=== PATIENT | male | born 1960 | race African-American/Black ===

== ENCOUNTER 2017-05-11 12:45 | Emergency (ER) | payer BC ==
[~2017-05-11] VITALS: Ht 177.8 cm; Wt 95.3 kg
[2017-05-11] MEDS ORDERED: METOCLOPRAMIDE HCL 10 MG/2 ML VIAL. IV ONE (13:45)
[2017-05-11] MEDS ORDERED: LABETALOL 20 MG/4 ML DISP.SYRIN. IVP ONE (13:45)
[2017-05-11] MEDS ORDERED: IV NORMAL SALINE 500ML BAG 500 ML IV ONE (13:45)
[2017-05-11] MEDS ORDERED: diphenhydrAMINE 50 MG/ML VIAL IVP ONE (13:45)
--- NOTE | 2017-05-11 14:32 | PHYS DOC ---
Past Medical History Past Medical History: Diabetes-Type I, Hypertension, Other Additional Past Medical Histor: leukemia Alcohol Use: None Drug Use: None Adult General Chief Complaint Chief Complaint: headache HPI HPI 56-year-old male presenting to the emergency department with a headache. He describes his headache as a pressure sensation in the front of his head similar to previous sinus headaches he has had before. He reports that the pain sometimes makes him feel lightheaded. He denies orthostasis or lightheadedness when he stands up. He does intermittently feel lightheaded. He denies vertigo or the room spinning. He primarily reports being here because he wanted to check his blood pressure to make sure his blood pressure wasn't too elevated. Initially his blood pressure was in the 170s which came down prior to the labetalol that was ordered for him. He has Flonase at home that he uses intermittently for his sinus disease. He denies his headache being sudden in onset or different from previous headaches. He denies fevers chills or neck stiffness. He denies vision changes. Review of systems is negative for chest pain shortness of breath abdominal pain nausea vomiting. All other review of systems is negative unless otherwise noted in history of present illness. ED course: 56-year-old male presenting to the emergency department today with headache. Afebrile with a normal heart rate. Pertinent physical exam findings showed a normal neurologic exam. Mild pain to palpation of the sinuses. Heart and lungs were normal. Abdomen is soft and nontender. I offered the patient medication for his headache. He received Reglan and Benadryl and fluids. On reexamination he was feeling better and his blood pressure did come down. I recommended he follow up with his primary care physician for blood pressure management. He also received Flonase in the emergency department for his sinuses. The patient was then discharged home in stable condition to follow up with their primary care physician over the next 2-3 days. They were to return if their symptoms worsened or if they were concerned for any reason. Face-to- face discharge instructions and return precautions were given. Patient's questions were answered to their satisfaction. Patient is comfortable plan. Review of Systems Review of Systems SEE ABOVE. Current Medications Current Medications Current Medications Medications (Trade) Dose Ordered Sig/Fredis Start Time Stop Time Status Last Admin Dose Admin Diphenhydramine HCl (Benadryl) 25 mg 1X ONCE 05/11/17 13:45 05/11/17 13:46 DC 05/11/17 13:58 25 MG Fluticasone Propionate (Flonase) 2 spray 1X ONCE 05/11/17 16:00 05/11/17 16:01 05/11/17 13:57 2 SPRAY Labetalol HCl (Normodyne) 10 mg 1X ONCE 05/11/17 13:45 05/11/17 13:46 DC Metoclopramide HCl (Reglan) 10 mg 1X ONCE 05/11/17 13:45 05/11/17 13:46 DC 05/11/17 13:56 10 MG Sodium Chloride 500 ml @ 500 mls/hr 1X ONCE 05/11/17 13:45 05/11/17 14:44 DC 05/11/17 13:55 500 MLS/HR Allergies Allergies Allergies Coded Allergies Type Severity Reaction Last Updated Verified No Known Drug Allergies 05/11/17 No Physical Exam Physical Exam see above: Constitutional: Well developed, well nourished, no acute distress, non-toxic appearance. [] HENT: Normocephalic, atraumatic, bilateral external ears normal, oropharynx moist, no oral exudates, nose normal. [] Eyes: PERRLA, EOMI, conjunctiva normal, no discharge. [] Neck: Normal range of motion, no tenderness, supple, no stridor. [] Cardiovascular:Heart rate regular rhythm, no murmur [] Lungs & Thorax: Bilateral breath sounds clear to auscultation [] Abdomen: Bowel sounds normal, soft, no tenderness, no masses, no pulsatile masses. [] Skin: Warm, dry, no erythema, no rash. [] Back: No tenderness, no CVA tenderness. [] Extremities: No tenderness, no cyanosis, no clubbing, ROM intact, no edema. [] Neurologic: Alert and oriented X 3, normal motor function, normal sensory function, no focal deficits noted. [] Psychologic: Affect normal, judgement normal, mood normal. [] Current Patient Data Vital Signs Vital Signs Date Time Temp Pulse Resp B/P (MAP) Pulse Ox O2 Delivery O2 Flow Rate FiO2 05/11/17 15:00 74 16 159/87 (111) 97 Room Air 05/11/17 13:00 98.1 98.1 EKG EKG [] Radiology/Procedures Radiology/Procedures [] Course & Med Decision Making Course & Med Decision Making Pertinent Labs and Imaging studies reviewed. (See chart for details) [] Dragon Disclaimer Dragon Disclaimer This electronic medical record was generated, in whole or in part, using a voice recognition dictation system. Departure Departure Impression: Primary Impression: Sinus headache Additional Impression: High blood pressure Disposition: HOME, SELF-CARE Condition: STABLE Referrals: SAMSON JOY MD (PCP) Patient Instructions: Dizziness, General Headache Without Cause, Managing Your High Blood Pressure Additional Instructions: Thank you for allowing us to participate in your care today. Followup with your primary care physician in 3 days if your symptoms do not improve. Call your Primary Doctor tomorrow and inform them of your visit today. If you do not have a primary care provider you can ask for a list of our primary care providers. Return to the emergency department you have any new or concerning findings. This should be evaluated by the primary care physician and any necessary consulting services for continued management within a few days after discharge. Return to emergency room if you have any new or concerning symptoms including but not limited to fever, chills, nausea, vomiting, intractable pain, any new rashes, chest pain, shortness of air, uncontrolled bleeding, difficulty breathing, and/or vision loss. You may have been prescribed medication that can change in your level of thinking and ability to operate machinery. These medications include hydrocodone and Ativan. Also, Benadryl has been known to do this as well. Be sure to check with your pharmacist and ask if the medications you've prescribed can affect your level of consciousness. I recommend not operating heavy machinery or driving while on medication such as these. Problem Qualifiers ZACK RAMSEY MD May 11, 2017 14:32
--- NOTE | 2017-05-11 15:36 | EKG ---
[facility] [address] [place] [address] Test Date: 2017-05-11 Test Time: 13:07:00 Pat Name: MARIXA DE LA FUENTE Department: Room: Gender: M Button Reclaimer: : 1960 Requested By: ZACK RAMSEY Order Number: [id number] Reading MD: Measurements Intervals [place] Rate: 86 P: -119 FL: 146 QRS: -4 QRSD: 102 T: 114 QT: 366 QTc: 441 Interpretive Statements SINUS RHYTHM LEFTWARD AXIS T ABNORMALITY IN LATERAL LEADS RI6.01 Unconfirmed report No previous ECG available for comparison
[2017-05-11] MEDS ORDERED: FLUTICASONE 50MCG/NASAL SPRAY 16GM BOTTLE. NS ONE (16:00)
[2017-05-11 16:10] VITALS: BP 138/74
== END 2017-05-11 16:12 | disposition home or self-care (01) ==
LOC: ER 12:45
DX: R51 Headache (principal); R42 Dizziness and giddiness; I10 Essential (primary) hypertension; E10.9 Type 1 diabetes mellitus without complications
CPT/HCPCS: 82962; 93005; 96361; 96374; 96375; 99284; J1200; J2765; J7040

== ENCOUNTER 2017-05-14 16:26 | Emergency (ER) | payer BC ==
[~2017-05-14] VITALS: Ht 177.8 cm; Wt 95.3 kg
[2017-05-14 18:00] LABS: NEG OBC FOB NEG; POS OBC FOB POS
[2017-05-14] MEDS ORDERED: HYDROcodone/APAP 5/325MG 1 TAB TABLET PO ONE (18:00)
[2017-05-14 18:34] LABS: BASO % 1 % (0-3); EOS % 8 % (0-3); HEMATOCRIT 39.6 % (39.0-53.0); HEMOGLOBIN 13.7 g/dL (13.0-17.5); LYMPH # 1.8 x10^3/uL (1.0-4.8); LYMPH % 32 % (24-48); MEAN CORPUSCULAR HEMOGLOBIN 29 pg (25-35); MEAN CORPUSCULAR HGB CONC 35 g/dL (31-37); MEAN CORPUSCULAR VOLUME 83 fL (79-100); MONO % 9 % (0-9); NEUT % 49 % (31-73); PLATELET COUNT 141 x10^3/uL (140-400); RED BLOOD COUNT 4.78 x10^6/uL (4.30-5.70); RED CELL DISTRIBUTION WIDTH 15.2 % (11.5-14.5); WHITE BLOOD COUNT 5.4 x10^3/uL (4.0-11.0)
[2017-05-14 18:50] LABS: CALCIUM 8.9 mg/dL (8.5-10.1); CREATININE 1.1 mg/dL (0.7-1.3); GFR 83.2; POTASSIUM 3.6 mmol/L (3.5-5.1)
[2017-05-14] MEDS ORDERED: AMOX1TAB61 PO (19:19)
[2017-05-14] MEDS ORDERED: HYDR-971 PO (19:19)
--- NOTE | 2017-05-14 19:19 | PHYS DOC ---
Past Medical History Past Medical History: Diabetes-Type I, Hypertension, Other Additional Past Medical Histor: leukemia Past Surgical History: No Surgical History Alcohol Use: None Drug Use: None Adult General Chief Complaint Chief Complaint: HEADACHE HPI HPI Patient is a 56 year old male who presents with headache & rectal bleeding. The patient states he has had headache for 4 days, feels like sinus congestion to frontal region, aching/throbbing/congested. He states not sudden in onset & not the worst headache of his life, although he has headaches infrequently. He denies fever, vision changes, neck stiffness, extremity numbness/weakness. Has been using nasal spray without relief of symptoms. Also reports today he had bowel movement & saw blood on the toilet paper when wiping, no javier hematochezia or melena. Denies abdominal pain, vomiting, hematemesis, hematuria. History of similar symptoms in remote past with no significant bleeding at that time. He does not take blood thinners. Review of Systems Review of Systems Constitutional: Denies fever or chills Eyes: Denies change in visual acuity HENT: Reports nasal congestion, denies sore throat Respiratory: Denies cough or shortness of breath Cardiovascular: Denies chest pain or edema GI: Denies abdominal pain, nausea, vomiting, or diarrhea. Reports rectal bleeding. : Denies dysuria or hematuria Musculoskeletal: Denies back pain or joint pain Integument: Denies rash or skin lesions Neurologic: Reports headache, denies focal weakness or sensory changes Current Medications Current Medications Current Medications Medications (Trade) Dose Ordered Sig/Fredis Start Time Stop Time Status Last Admin Dose Admin Acetaminophen/ Hydrocodone Bitart (Lortab 5/325) 2 tab 1X ONCE 05/14/17 18:00 05/14/17 18:01 DC 05/14/17 18:27 2 TAB Allergies Allergies Allergies Coded Allergies Type Severity Reaction Last Updated Verified No Known Drug Allergies 05/11/17 No Physical Exam Physical Exam Constitutional: Well developed, well nourished, no acute distress, non-toxic appearance. HENT: Normocephalic, atraumatic, bilateral external ears normal, oropharynx moist, nose normal. bifrontal sinus tenderness. Eyes: PERRLA, EOMI, conjunctiva normal, no discharge. Neck: supple, no stridor. no meningismus. Cardiovascular: RRR, no murmurs, no edema. Lungs & Thorax: LCTAB, no wheezing, no respiratory distress. Abdomen: soft, nontender, nondistended. Rectal: exam with RN February present. normal external exam without hemorrhoid or fissure, no tenderness on exam, no masses, no gross blood, hemoccult card sent to lab. Skin: Warm, dry, no erythema, no rash. Back: No CVA tenderness. Extremities: No tenderness, no edema. Neurologic: Alert and oriented X 3, CN2-12 grossly intact, symmetric strength/ sensation to UE & LE, no focal deficits noted. Psychologic: Affect normal, judgement normal, mood normal. Current Patient Data Vital Signs Vital Signs Date Time Temp Pulse Resp B/P (MAP) Pulse Ox O2 Delivery O2 Flow Rate FiO2 05/14/17 19:26 69 20 186/98 (127) 94 Room Air 05/14/17 16:56 99.2 99.2 Lab Values Laboratory Tests Test 05/14/17 17:39 05/14/17 18:20 Stool Occult Blood Negative (NEG) White Blood Count 5.4 x10^3/uL (4.0-11.0) Red Blood Count 4.78 x10^6/uL (4.30-5.70) Hemoglobin 13.7 g/dL (13.0-17.5) Hematocrit 39.6 % (39.0-53.0) Mean Corpuscular Volume 83 fL (79-100) Mean Corpuscular Hemoglobin 29 pg (25-35) Mean Corpuscular Hemoglobin Concent 35 g/dL (31-37) Red Cell Distribution Width 15.2 % (11.5-14.5) H Platelet Count 141 x10^3/uL (140-400) Neutrophils (%) (Auto) 49 % (31-73) Lymphocytes (%) (Auto) 32 % (24-48) Monocytes (%) (Auto) 9 % (0-9) Eosinophils (%) (Auto) 8 % (0-3) H Basophils (%) (Auto) 1 % (0-3) Neutrophils # (Auto) 2.7 x10^3uL (1.8-7.7) Lymphocytes # (Auto) 1.8 x10^3/uL (1.0-4.8) Monocytes # (Auto) 0.5 x10^3/uL (0.0-1.1) Eosinophils # (Auto) 0.5 x10^3/uL (0.0-0.7) Basophils # (Auto) 0.0 x10^3/uL (0.0-0.2) Sodium Level 143 mmol/L (136-145) Potassium Level 3.6 mmol/L (3.5-5.1) Chloride Level 106 mmol/L (98-107) Carbon Dioxide Level 29 mmol/L (21-32) Anion Gap 8 (6-14) Blood Urea Nitrogen 17 mg/dL (8-26) Creatinine 1.1 mg/dL (0.7-1.3) Estimated GFR (Cockcroft-Gault) 83.2 Glucose Level 196 mg/dL (70-99) H Calcium Level 8.9 mg/dL (8.5-10.1) Laboratory Tests 05/14/17 18:20 Laboratory Tests 05/14/17 18:20 EKG EKG [] Radiology/Procedures Radiology/Procedures Radiology downtime, preliminary read by Dr. Michelle shows no acute abnormality. [] Course & Med Decision Making Course & Med Decision Making Pertinent Labs and Imaging studies reviewed. (See chart for details) The patient presents with headache & rectal bleeding. Well appearing, afebrile , normal neuro exam. Given age & duration of headache obtained head CT which was unremarkable. Gave pain meds in the ED. No rectal bleeding seen here, report indicates very minimal blood at home, could be small internal hemorrhoid or fissure. Hemodynamically stable. In absence of abdominal pain, hematemesis , ongoing bleeding, patient is safe for discharge. Discussed likely viral etiology of sinus symptoms. However, I did provide prescriptoin for augmentin to be filled as needed if not improving in 2-3 days, particularly if having fever. Also gave norco & encouraged continued symptomatic treatment with flonase, consider neti pot. Follow up with primary care or GI if rectal bleeding is persistent in 2-3 days. Patient aware of elevated blood glucose & blood pressure, he has diabetes & hypertension & will monitor/follow up. Come back for severe/sudden onset headache, focal neuro deficit, uncontrolled vomiting, severe abdominal pain, hematemesis, increased bleeding, any otherwise worsening condition. Discharged home in stable condition. [] Dragon Disclaimer Dragon Disclaimer This electronic medical record was generated, in whole or in part, using a voice recognition dictation system. Departure Departure Impression: Primary Impression: Sinusitis Additional Impressions: Rectal bleeding Essential hypertension Hyperglycemia Disposition: 01 HOME, SELF-CARE Condition: STABLE Referrals: SAMSON JOY MD (PCP) Patient Instructions: Sinus Headache, [id number] Additional Instructions: You seen in the emergency department today for headache. Tests did not show serious cause of symptoms. Also there was no blood on rectal exam here. You likely do have a sinus infection. This is almost always caused by a virus. We do not encourage treatment with antibiotics. However due to duration of her symptoms and low-grade fever here, you may wait 2-3 days and if still having symptoms it is okay to fill the prescription for antibiotics. In the meantime continue use of nasal spray, consider obtaining neti pot wash. I'll up with Dr. Joy in the primary care clinic in about 2-3 days. Your blood pressure and blood glucose were elevated here today and should be rechecked. Return to the emergency department for sudden onset of severe headache, worst headache of your life, uncontrolled vomiting, high fever, numbness or weakness in arms or legs, any otherwise worsening condition. Scripts Hydrocodone/Apap 5-325 (NORCO 5-325 TABLET) 1 Each Tablet 1 TAB PO PRN Q6HRS Y for PAIN, #10 TAB 0 Refills Prov: MICHAEL CUELLAR MD 05/14/17 Amoxicillin/Potassium Clav (AUGMENTIN 875-125 TABLET) 1 Each Tablet 1 TAB PO BID, #14 TAB Prov: MICHAEL CUELLAR MD 05/14/17 Problem Qualifiers MICHAEL CUELLAR MD May 14, 2017 19:19
[2017-05-14 19:26] VITALS: BP 186/98
--- NOTE | 2017-05-14 22:28 | RAD ---
CT head without intravenous contrast History: Headache and dizziness, hypertension today. Comparison: None. Technique: Axial images are obtained of the head from the skull base through the vertex without IV contrast. Exposure: One or more of the following individualized dose reduction techniques were utilized for this examination: 1. Automated exposure control 2. Adjustment of the mA and/or kV according to patient size 3. Use of iterative reconstruction technique Findings: The ventricles are appropriate in size, shape, and location for the patient's age. No obvious intracranial mass, mass-effect, midline shift, hemorrhage or obvious acute infarction is identified. Basilar cisterns are patent. Bone windows demonstrate no acute calvarial abnormality. The visualized paranasal sinuses appear clear. Impression: 1. No acute intracranial process. Electronically signed by: Yusuf Michelle MD (05/14/2017 10:25 PM)
== END 2017-05-14 19:28 | disposition home or self-care (01) ==
LOC: ER 16:26
DX: J32.9 Chronic sinusitis, unspecified (principal); K62.5 Hemorrhage of anus and rectum; I10 Essential (primary) hypertension; E10.65 Type 1 diabetes mellitus with hyperglycemia
CPT/HCPCS: 36415; 70450; 80048; 82274; 85027; 99285-25

== ENCOUNTER 2017-05-16 08:21 | Emergency (ER) | payer BC ==
[~2017-05-16] VITALS: Ht 177.8 cm; Wt 95.3 kg
[~2017-05-16 08:21] MED LIST: AMOX1TAB61 PO; HYDR-971 PO
--- NOTE | 2017-05-16 08:22 | PHYS DOC ---
Past Medical History Past Medical History: Diabetes-Type I, Hypertension, Other Additional Past Medical Histor: leukemia Past Surgical History: No Surgical History Alcohol Use: None Drug Use: None Adult General Chief Complaint Chief Complaint: [facility] HPI Patient is a 56 year old -[place] male who presents with complains of dizziness and shortness of breath and chills last night in addition to his sinus congestion. He states that his shortness of breath sensation and chills resolved last night but had trouble sleeping all night secondary to his headache and some nausea. He states this morning he felt very weak like his legs were going to give out he was still able to walk to the car drive himself here and get to the emergency department by himself. He denies any productive cough he denies any chest pain. He did start his antibiotics last night that he was given for his sinus infection. Review of Systems Review of Systems Constitutional: Denies fever or chills [] Eyes: Denies change in visual acuity, redness, or eye pain [] HENT: Denies nasal congestion or sore throat [] Respiratory: Denies cough or shortness of breath [] Cardiovascular: No additional information not addressed in HPI [] GI: Denies abdominal pain, nausea, vomiting, bloody stools or diarrhea [] : Denies dysuria or hematuria [] Musculoskeletal: Denies back pain or joint pain [] Integument: Denies rash or skin lesions [] Neurologic: Denies headache, focal weakness or sensory changes [] Endocrine: Denies polyuria or polydipsia [] Allergies Allergies Allergies Coded Allergies Type Severity Reaction Last Updated Verified No Known Drug Allergies 05/11/17 No Physical Exam Physical Exam Constitutional: Well developed, well nourished, no acute distress, non-toxic appearance. [] HENT: Normocephalic, atraumatic, bilateral external ears normal, oropharynx moist, no oral exudates, nose normal. [] Eyes: PERRLA, EOMI, conjunctiva normal, no discharge. [] Neck: Normal range of motion, no tenderness, supple, no stridor. [] Cardiovascular:Heart rate regular rhythm, no murmur [] Lungs & Thorax: Bilateral breath sounds clear to auscultation [] Abdomen: Bowel sounds normal, soft, no tenderness, no masses, no pulsatile masses. [] Skin: Warm, dry, no erythema, no rash. [] Back: No tenderness, no CVA tenderness. [] Extremities: No tenderness, no cyanosis, no clubbing, ROM intact, no edema. [] Neurologic: Alert and oriented X 3, normal motor function, normal sensory function, no focal deficits noted. [] Psychologic: Affect normal, judgement normal, mood normal. [] Current Patient Data Vital Signs Vital Signs Date Time Temp Pulse Resp B/P (MAP) Pulse Ox O2 Delivery O2 Flow Rate FiO2 05/16/17 12:26 72 20 168/86 (113) 95 Room Air 05/16/17 08:36 98.2 98.2 Lab Values Laboratory Tests Test 05/16/17 08:45 05/16/17 09:40 05/16/17 11:40 White Blood Count 5.2 x10^3/uL (4.0-11.0) Red Blood Count 4.84 x10^6/uL (4.30-5.70) Hemoglobin 13.9 g/dL (13.0-17.5) Hematocrit 40.2 % (39.0-53.0) Mean Corpuscular Volume 83 fL (79-100) Mean Corpuscular Hemoglobin 29 pg (25-35) Mean Corpuscular Hemoglobin Concent 35 g/dL (31-37) Red Cell Distribution Width 15.0 % (11.5-14.5) H Platelet Count 139 x10^3/uL (140-400) L Neutrophils (%) (Auto) 56 % (31-73) Lymphocytes (%) (Auto) 27 % (24-48) Monocytes (%) (Auto) 10 % (0-9) H Eosinophils (%) (Auto) 6 % (0-3) H Basophils (%) (Auto) 1 % (0-3) Neutrophils # (Auto) 2.9 x10^3uL (1.8-7.7) Lymphocytes # (Auto) 1.4 x10^3/uL (1.0-4.8) Monocytes # (Auto) 0.5 x10^3/uL (0.0-1.1) Eosinophils # (Auto) 0.3 x10^3/uL (0.0-0.7) Basophils # (Auto) 0.1 x10^3/uL (0.0-0.2) Sodium Level 141 mmol/L (136-145) Potassium Level 3.4 mmol/L (3.5-5.1) L Chloride Level 106 mmol/L (98-107) Carbon Dioxide Level 28 mmol/L (21-32) Anion Gap 7 (6-14) Blood Urea Nitrogen 17 mg/dL (8-26) Creatinine 1.1 mg/dL (0.7-1.3) Estimated GFR (Cockcroft-Gault) 83.2 Glucose Level 137 mg/dL (70-99) H Calcium Level 9.0 mg/dL (8.5-10.1) Magnesium Level 2.0 mg/dL (1.8-2.4) Total Bilirubin 0.5 mg/dL (0.2-1.0) Direct Bilirubin 0.2 mg/dL (0.0-0.2) Aspartate Amino Transferase (AST) 17 U/L (15-37) Alanine Aminotransferase (ALT) 32 U/L (16-63) Alkaline Phosphatase 114 U/L (46-116) Creatine Kinase 147 U/L (39-308) 135 U/L (39-308) Creatine Kinase MB (Mass) 1.4 ng/mL (0.0-3.6) 1.3 ng/mL (0.0-3.6) Creatine Kinase MB Relative Index 1.0 % (0-4) 1.0 % (0-4) Troponin I Quantitative 0.044 ng/mL (0.000-0.055) 0.043 ng/mL (0.000-0.055) ZZ-Kze-X-Type Natriuretic Peptide 109 pg/mL (0-124) Total Protein 7.2 g/dL (6.4-8.2) Albumin 3.8 g/dL (3.4-5.0) Lipase 70 U/L (73-393) L Thyroid Stimulating Hormone (TSH) 1.255 uIU/mL (0.358-3.74) Urine Collection Type Unknown Urine Color Yellow Urine Clarity Clear Urine pH 7.0 Urine Specific [place] 1.015 Urine Protein 30 mg/dL (NEG-TRACE) Urine Glucose (UA) Negative mg/dL (NEG) Urine Ketones (Stick) Negative mg/dL (NEG) Urine Blood Negative (NEG) Urine Nitrite Negative (NEG) Urine Bilirubin Negative (NEG) Urine Urobilinogen Dipstick 1.0 mg/dL (0.2 mg/dL) Urine Leukocyte Esterase Negative (NEG) Urine RBC 1-2 /HPF (0-2) Urine WBC 5-10 /HPF (0-4) Urine Squamous Epithelial Cells Few /LPF Urine Bacteria Few /HPF (0-FEW) Urine Mucus Slight /LPF Laboratory Tests 05/16/17 08:45 Laboratory Tests 05/16/17 08:45 EKG EKG EKG shows sinus rhythm with a rate of [address] elevations appreciated, T-wave inversions noted in V5 and V6 in 2 aVL, left axis deviation , QTC 460 ms, as interpreted by me. Radiology/Procedures Radiology/Procedures [facility] [address] [place], [place] [id number] IMAGING REPORT Signed PATIENT: MARIXA DE LA FUENTE ACCOUNT: [id number] : 1960 LOCATION: ER AGE: 56 SEX: M EXAM STATUS: REG ER ORD. PHYSICIAN: OSNA BOSWELL MD REASON: soa,dizziness PROCEDURE: PORTABLE CHEST 1V Portable AP upright view CXR: Clinical indications: Sinus pressure for 5 days. Shortness of air. Dizziness.. Comparison: None available. Findings: No acute lung infiltrate or pleural effusion or pulmonary edema or lung mass or pneumothorax is seen. The heart size, pulmonary vasculature, mediastinum and both ken are unremarkable. Impression: No acute radiographic abnormality is seen. DICTATED and SIGNED BY: JAYDE BURGER MD DATE: 05/16/17 09 CC: SONA BOSWELL MD; SAMSON JOY MD ~ Impressions: Sinus congestion Generalized weakness Course & Med Decision Making Course & Med Decision Making Pertinent Labs and Imaging studies reviewed. (See chart for details) His labs, EKG, chest x-ray did not show any acute abnormality's. I repeated his troponin since he is complaining of weakness and this was normal. He has Augmentin and nasals sprays that he is currently on from yesterday's ER visit. Do not see any abnormalities in his blood work, labs, EKG, vitals. He has a follow-up appointment at 2:00 today with his primary care physician. Return precautions given. He is agreeable to the plan and being discharged in stable condition. Dragon Disclaimer Dragon Disclaimer This electronic medical record was generated, in whole or in part, using a voice recognition dictation system. Departure Departure Impression: Primary Impression: Weakness Disposition: 01 HOME, SELF-CARE Condition: STABLE Referrals: SAMSON JOY MD (PCP) Patient Instructions: Weakness Additional Instructions: You were seen today for your headache, generalized weakness, your labs, EKG chest x-ray did not show any acute abnormality's. Your being discharged home. Please follow-up with your primary care physician today. Return ER for severe pain severe weakness, or other concerns. SONA BOSWELL MD May 16, 2017 08:22
[2017-05-16 09:02] LABS: BASO # 0.1 x10^3/uL (0.0-0.2); BASO % 1 % (0-3); EOS % 6 % (0-3); HEMATOCRIT 40.2 % (39.0-53.0); HEMOGLOBIN 13.9 g/dL (13.0-17.5); LYMPH # 1.4 x10^3/uL (1.0-4.8); LYMPH % 27 % (24-48); MEAN CORPUSCULAR HEMOGLOBIN 29 pg (25-35); MEAN CORPUSCULAR HGB CONC 35 g/dL (31-37); MEAN CORPUSCULAR VOLUME 83 fL (79-100); MONO % 10 % (0-9); NEUT % 56 % (31-73); PLATELET COUNT 139 x10^3/uL (140-400); RED BLOOD COUNT 4.84 x10^6/uL (4.30-5.70); WHITE BLOOD COUNT 5.2 x10^3/uL (4.0-11.0)
--- NOTE | 2017-05-16 09:05 | RAD ---
Portable AP upright view CXR: Clinical indications: Sinus pressure for 5 days. Shortness of air. Dizziness.. Comparison: None available. Findings: No acute lung infiltrate or pleural effusion or pulmonary edema or lung mass or pneumothorax is seen. The heart size, pulmonary vasculature, mediastinum and both ken are unremarkable. Impression: No acute radiographic abnormality is seen.
[2017-05-16 09:12] LABS: CREATININE 1.1 mg/dL (0.7-1.3); GFR 83.2; POTASSIUM 3.4 mmol/L (3.5-5.1)
[2017-05-16 09:20] LABS: ALBUMIN 3.8 g/dL (3.4-5.0); DIRECT BILIRUBIN 0.2 mg/dL (0.0-0.2); TOTAL BILIRUBIN 0.5 mg/dL (0.2-1.0); TOTAL PROTEIN 7.2 g/dL (6.4-8.2)
[2017-05-16 09:25] LABS: CKMB MASS 1.4 ng/mL (0.0-3.6)
[2017-05-16 09:54] LABS: BILIRUBIN,URINE NEGATIVE (NEG); GLUCOSE,URINE NEGATIVE (NEG); NITRITE,URINE NEGATIVE (NEG); PROTEIN,URINE 30 mg/dL (NEG-TRACE)
[2017-05-16 10:02] LABS: SQUAMOUS EPITHELIAL CELL,UR FEW /LPF
[2017-05-16 10:03] LABS: BACTERIA,URINE FEW /HPF (0-FEW)
--- NOTE | 2017-05-16 11:04 | ACF ---
Admission Forms Criteria HYPERTENSION Clinical Indications for Admission to Inpatient Care ( Place "X" for any and all applicable criteria): Admission is indicated for 1 or more of the following(1)(2)(3)(4)(5)(6)(7)(8)(9) (10): [ ]I. Hypertensive emergency, with evidence of acute and progressing target organ disease as indicated by 1 or more of the following: [ ]a) Hypertensive encephalopathy (eg, confusion, altered mental status) [ ]b) Cerebral infarction [ ]c) Intracranial hemorrhage [ ]d) Myocardial ischemia or infarction [ ]e) Heart failure (eg. Pulmonary edema) [ ]f) Aortic dissection [ ]g) Increased creatinine (new) with reduction of more than 50% in estimated glomerular filtration rate from baseline [ ]h) Seizure [ ]i) Papilledema [ ]j) Retinal hemorrhage [ ]k) Microangiopathic hemolytic anemia [ ]l) Other significant finding secondary to hypertension [ ]II. Adrenergic or sympathomimetic crisis (eg, severe hypertension due to pheochromocytoma crisis, cocaine or amphetamine intoxication, or clonidine withdrawal) [X]III. Severe hypertension (SBP greater than 180 mmHg or DBP greater than 110 mmHg or greater than the 95th percentile for age, gender, and height in pediatric patients) that cannot be controlled (eg, to SBP less than 160 mmHg and DBP less than 100 mmHg in adults) by treatment with oral medication in emergency department or observation care Extended stay beyond goal length of stay may be needed for(11)(12)(13): [ ]a) Persistent hypertensive encephalopathy [ ]b) Continuation of pulmonary edema [ ]c) Recurring or persistent severe hypertension [ ]d) Target organ damage (eg, angina, stroke, aortic dissection) The original [employer] content created by [employer] has been revised. The portions of the content which have been revised are identified through the use of italic text, and [employer] has neither reviewed nor approved the modified material. All other unmodified content is copyright [employer]. Please see references footnoted in the original [employer] edition 2014 Admission Criteria Met?: Yes MELI LEIGH May 16, 2017 11:04
[2017-05-16 12:20] LABS: CKMB MASS 1.3 ng/mL (0.0-3.6)
[2017-05-16 12:26] VITALS: BP 168/86
--- NOTE | 2017-05-16 12:49 | EKG ---
[facility] [address] [place] [address] Test Date: 2017-05-16 Test Time: 08:28:53 Pat Name: MARIXA DE LA FUENTE Department: Room: Gender: M [employer]: : 1960 Requested By: SONA BOSWELL Order Number: [id number] Reading MD: Tiff Mon Measurements Intervals [place] Rate: 74 P: -4 [place]: 192 QRS: -7 QRSD: 104 T: 69 QT: 374 QTc: 416 Interpretive Statements SINUS RHYTHM LEFTWARD AXIS Electronically Signed On 05-17-2017 14:16:20 CDT by Tiff Mon
== END 2017-05-16 12:33 | disposition home or self-care (01) ==
LOC: ER 08:21
DX: R53.1 Weakness (principal); R42 Dizziness and giddiness; R51 Headache; R11.0 Nausea; R06.02 Shortness of breath; E10.9 Type 1 diabetes mellitus without complications; I10 Essential (primary) hypertension
CPT/HCPCS: 36415; 71010; 80048; 80076; 81001; 82553; 83690; 83735; 83880; 84443; 84484; 85027; 87086; 93005; 99285-25

== ENCOUNTER 2018-09-21 01:32 | Emergency (ER) | payer BC, OTHER ==
[~2018-09-21] VITALS: Ht 177.8 cm; Wt 90.7 kg
[~2018-09-21 01:32] MED LIST changes: +AMLO1CAP12 PO; +ASPI-630 PO; +EZET10TA18 PO; +HYDR12.58 PO; +INSU100C4 SQ; +INSU100V13 SQ; +ISOS1TAB2 PO; +METF500T16 PO; +METO100T7 PO; +REPA1TAB6 PO
[2018-09-21 01:45] VITALS: BP 187/99
[2018-09-21] MEDS ORDERED: KETOROLAC 15 MG/ML VIAL. ONE (01:58)
[2018-09-21] MEDS ORDERED: KETOROLAC 60 MG/2 ML INJ. IM ONE (02:00)
--- NOTE | 2018-09-21 02:00 | PHYS DOC ---
Past Medical History Past Medical History: Diabetes-Type II, Hypertension, Other Additional Past Medical Histor: leukemia Past Surgical History: Cholecystectomy, Other Additional Past Surgical Histo: GALLSTONE SX Additional Information: Nonsmoker Alcohol Use: None Drug Use: None Adult General Chief Complaint Chief Complaint: BACK PAIN - NO INJURY HPI HPI Patient is a 58 year old male presented to the ED due to back pain. The location of the pain is stated to be in the left thoracic region on the back. Patient states that he has never had this kind of pain before. The pain started last Friday and has been getting progressively worse, so he drove himself to the ED today. Patient states that he's been progressively working out more in the gym, walking, and lifting weights. Patient states that there is no radiation of the pain. The pain is constant, 8 out of 10 in severity, sharp in quality. The patient denies any trauma, falls, accidents. Patient states that he has tried taking Tylenol but this did not improve his pain. Denies fever/ chills. Denies rash. Review of Systems Review of Systems Constitutional: Denies fever or chills [] Eyes: Denies change in visual acuity, redness, or eye pain [] HENT: Denies nasal congestion or sore throat [] Respiratory: Denies cough or shortness of breath [] Cardiovascular: As chest pain GI: Denies abdominal pain, nausea, vomiting, bloody stools or diarrhea [] : Denies dysuria or hematuria [] Musculoskeletal: Denies back pain or joint pain [] Integument: Denies rash or skin lesions [] Neurologic: Denies headache, focal weakness or sensory changes [] Complete systems were reviewed and found to be within normal limits, except as documented in this note. Current Medications Current Medications Current Medications Medications (Trade) Dose Ordered Sig/Fredis Start Time Stop Time Status Last Admin Dose Admin Ketorolac Tromethamine (Toradol 15mg Vial) 15 mg STK-MED ONCE 09/21/18 01:58 09/21/18 01:59 DC Ketorolac Tromethamine (Toradol 30mg Vial) 30 mg STK-MED ONCE 09/21/18 02:01 09/21/18 02:02 DC Ketorolac Tromethamine (Toradol Im) 30 mg 1X ONCE 09/21/18 02:00 09/21/18 02:34 DC 09/21/18 02:00 30 MG Allergies Allergies Allergies Coded Allergies Type Severity Reaction Last Updated Verified No Known Drug Allergies 05/11/17 No Physical Exam Physical Exam Constitutional: Well developed, well nourished, no acute distress, non-toxic appearance. [] HENT: Normocephalic, atraumatic, oropharynx moist Eyes: PERRL, EOMI, conjunctiva normal, no discharge. [] Neck: Normal range of motion, no tenderness, supple, no stridor. [] Cardiovascular: Heart rate regular rhythm, no murmur [] Lungs & Thorax: Bilateral breath sounds clear to auscultation [] Abdomen: Soft, no tenderness Skin: Warm, dry, no erythema, no rash. [] Back: Mild tenderness in the left thoracic region, no midline tenderness, no CVA tenderness. Extremities: No tenderness, no ROM intact, no edema. [] Neurologic: Alert and oriented X 3, normal motor function, normal sensory function, no focal deficits noted. [] Psychologic: Affect normal, judgement normal, mood normal. [] Current Patient Data Vital Signs Vital Signs Date Time Temp Pulse Resp B/P (MAP) Pulse Ox O2 Delivery O2 Flow Rate FiO2 09/21/18 01:45 98.4 71 20 187/99 (128) 96 Room Air 98.4 EKG EKG [] Radiology/Procedures Radiology/Procedures [] Course & Med Decision Making Course & Med Decision Making 58-year-old male complaining of left thoracic back pain. No known trauma. No midline bony tenderness. Tenderness noted to be paraspinal in nature. Analgesia provided with IM ketorolac, and prescription for muscle relaxant given. Patient stable for discharge with outpatient follow-up with PCP. Discussed findings and plan with patient, who acknowledges understanding and agreement. Dragon Disclaimer Dragon Disclaimer This electronic medical record was generated, in whole or in part, using a voice recognition dictation system. Departure Departure Impression: Primary Impression: Thoracic back pain Disposition: 01 HOME, SELF-CARE Condition: STABLE Referrals: Grant JOY MD (PCP) Patient Instructions: Back Pain, Adult, [id number] Scripts Orphenadrine Citrate (ORPHENADRINE CITRATE) 100 Mg Tablet.er 100 MG PO BID PRN for MUSCLE PAIN, #14 Prov: LISA RAMON DO 09/21/18 Naproxen (NAPROXEN) 500 Mg Tablet 1 TAB PO BID PRN for PAIN, #20 TAB 0 Refills Prov: LISA RAMON DO 09/21/18 Problem Qualifiers Primary Impression: Thoracic back pain Chronicity: acute Back pain laterality: left Qualified Codes: M54.6 - Pain in thoracic spine LISA RAMON DO Sep 21, 2018 02:00
[2018-09-21] MEDS ORDERED: KETOROLAC 30 MG/ML VIAL. ONE (02:01)
[2018-09-21] MEDS ORDERED: ORPH100T PO (02:04)
[2018-09-21] MEDS ORDERED: NAPR-514 PO (02:04)
== END 2018-09-21 02:21 | disposition home or self-care (01) ==
LOC: ER 01:32
DX: M54.6 Pain in thoracic spine (principal); E11.9 Type 2 diabetes mellitus without complications; I10 Essential (primary) hypertension; Z90.49 Acquired absence of other specified parts of digestive tract
CPT/HCPCS: 96372; 99283; J1885

== ENCOUNTER → 2019-02-04 | Outpatient (CLI) | payer OTHER ==
[2018-11-11 11:00] VITALS: BP 142/71
[~2019-02-04] MED LIST changes: +ATOR40TA PO; +HYDR-3164 PO; -HYDR-971 PO; +NAPR-514 PO; +ORPH100T PO
--- NOTE | 2019-02-04 15:06 | KCIC ---
EXAM: PA, oblique and lateral views of the left hand DATE: 02/04/2019 12:00 AM INDICATION: Left hand pain, left middle finger pain. No known injury COMPARISON: No Prior FINDINGS: No evidence of acute fracture or dislocation. Mild decreased bone mineral density. Soft tissue swelling is seen about the left middle finger most prominent about the base. IMPRESSION: 1. Soft tissue swelling at the base of the left middle finger without evidence for acute fracture or dislocation. Electronically signed by: Sanford Lauren MD (02/04/2019 3:03 PM) [facility] [place]
== END | disposition home or self-care (01) ==
LOC: KCIC 13:52
PROVIDERS: ATTEND Family Medicine
DX: R22.32 Localized swelling, mass and lump, left upper limb (principal); M79.645 Pain in left finger(s)
CPT/HCPCS: 73130

== ENCOUNTER 2019-10-19 05:57 | Emergency (ER) | payer OTHER ==
[~2019-10-19] VITALS: Ht 177.8 cm; Wt 85.7 kg
[~2019-10-19 05:57] MED LIST changes: -AMLO1CAP12 PO; +AMLO1CAP13 PO; -EZET10TA18 PO; +EZET10TA20 PO
--- NOTE | 2019-10-19 06:18 | PHYS DOC ---
Past Medical History Past Medical History: CAD, Diabetes-Type II, High Cholesterol, Hypertension, Other Additional Past Medical Histor: leukemia Past Surgical History: Cholecystectomy, Other Additional Past Surgical Histo: GALLSTONE SX Alcohol Use: None Drug Use: None Adult General Chief Complaint Chief Complaint: LOWER EXTREMITY SWELLING [facility] HPI Patient is a 59 year old with history of hypertension, dyslipidemia, diabetes mellitus, coronary artery disease, leukemia who presents with complaining of swelling of legs. Patient complaining of bilateral lower extremity edema for the last 4 months that getting better and worse and for the last 1 month that getting worse. Patient states he injured his left leg during moving furniture 4 months ago and had erythema and scar of left leg without pain or new focal neuro deficit. Patient states he seen by his primary care physician without having any treatment regarding edema of bilateral lower extremity for several months. Patient denies fever and chills, shortness of breath, chest pain, immobilization, history of DVT or PE and CHF. Patient denies any new change of his leg today but decided to find what is going on with his legs. Review of Systems Review of Systems Constitutional: Denies fever or chills [] Eyes: Denies change in visual acuity, redness, or eye pain [] HENT: Denies nasal congestion or sore throat [] Respiratory: Denies cough or shortness of breath [] Cardiovascular: No additional information not addressed in HPI [] GI: Denies abdominal pain, nausea, vomiting, bloody stools or diarrhea [] : Denies dysuria or hematuria [] Musculoskeletal: Denies back pain or joint pain [] Integument: Denies rash or skin lesions [] Neurologic: Denies headache, focal weakness or sensory changes [] Endocrine: Denies polyuria or polydipsia [] All other systems were reviewed and found to be within normal limits, except as documented in this note. Allergies Allergies Allergies Coded Allergies Type Severity Reaction Last Updated Verified No Known Drug Allergies 05/11/17 No Physical Exam Physical Exam Constitutional: Well developed, well nourished, mild distress, non-toxic appearance. [] HENT: Normocephalic, atraumatic. Eyes: PERRLA, EOMI, conjunctiva normal, no discharge. [] Neck: Normal range of motion, no tenderness, supple, no stridor. [] Cardiovascular:Heart rate regular rhythm, no murmur [] Lungs & Thorax: Bilateral breath sounds clear to auscultation [] Abdomen: Bowel sounds normal, soft, no tenderness, no masses, no pulsatile masses. [] Skin: Warm, dry, no erythema, no rash. [] Back: No tenderness, no CVA tenderness. [] Extremities: Bilateral lower extremity 2+ edema without tenderness, left lower extremity beat old scar and erythema and few small blisterlike lesions, normal range of motion, no calf tenderness, normal pulses Neurologic: Alert and oriented X 3, no focal deficits noted. [] Psychologic: Affect normal, judgement normal, mood normal. [] Current Patient Data Vital Signs Vital Signs Date Time Temp Pulse Resp B/P (MAP) Pulse Ox O2 Delivery O2 Flow Rate FiO2 10/19/19 08:08 80 16 156/79 (104) 99 Room Air 10/19/19 06:00 98.2 98.2 Lab Values Laboratory Tests Test 10/19/19 06:20 White Blood Count 6.2 x10^3/uL (4.0-11.0) Red Blood Count 4.91 x10^6/uL (4.30-5.70) Hemoglobin 13.9 g/dL (13.0-17.5) Hematocrit 41.1 % (39.0-53.0) Mean Corpuscular Volume 84 fL (79-100) Mean Corpuscular Hemoglobin 28 pg (25-35) Mean Corpuscular Hemoglobin Concent 34 g/dL (31-37) Red Cell Distribution Width 15.1 % (11.5-14.5) H Platelet Count 157 x10^3/uL (140-400) Neutrophils (%) (Auto) 55 % (31-73) Lymphocytes (%) (Auto) 27 % (24-48) Monocytes (%) (Auto) 10 % (0-9) H Eosinophils (%) (Auto) 7 % (0-3) H Basophils (%) (Auto) 1 % (0-3) Neutrophils # (Auto) 3.4 x10^3/uL (1.8-7.7) Lymphocytes # (Auto) 1.6 x10^3/uL (1.0-4.8) Monocytes # (Auto) 0.6 x10^3/uL (0.0-1.1) Eosinophils # (Auto) 0.4 x10^3/uL (0.0-0.7) Basophils # (Auto) 0.1 x10^3/uL (0.0-0.2) Sodium Level 144 mmol/L (136-145) Potassium Level 3.4 mmol/L (3.5-5.1) L Chloride Level 105 mmol/L (98-107) Carbon Dioxide Level 29 mmol/L (21-32) Anion Gap 10 (6-14) Blood Urea Nitrogen 17 mg/dL (8-26) Creatinine 1.2 mg/dL (0.7-1.3) Estimated GFR (Cockcroft-Gault) 74.5 BUN/Creatinine Ratio 14 (6-20) Glucose Level 154 mg/dL (70-99) H Lactic Acid Level 1.5 mmol/L (0.4-2.0) Calcium Level 8.9 mg/dL (8.5-10.1) Total Bilirubin 0.4 mg/dL (0.2-1.0) Aspartate Amino Transferase (AST) 20 U/L (15-37) Alanine Aminotransferase (ALT) 34 U/L (16-63) Alkaline Phosphatase 155 U/L (46-116) H SY-Irh-I-Type Natriuretic Peptide 165 pg/mL (0-124) H Total Protein 7.9 g/dL (6.4-8.2) Albumin 3.8 g/dL (3.4-5.0) Albumin/Globulin Ratio 0.9 (1.0-1.7) L Laboratory Tests 10/19/19 06:20 Laboratory Tests 10/19/19 06:20 EKG EKG [] Radiology/Procedures Radiology/Procedures [][facility] [address] [place] [address] IMAGING REPORT Signed PATIENT: MARIXA DE LA FUENTE ACCOUNT: [id number] : 1960 LOCATION: ER AGE: 59 SEX: M EXAM STATUS: REG ER ORD. PHYSICIAN: DAMASO MENDENHALL MD REASON: erythema and edema PROCEDURE: VENOUS LOWER EXTREMITY LEFT Ultrasound venous Doppler INDICATION:Left leg swelling TECHNIQUE: Grayscale, color Doppler and spectral waveform ultrasound images of the left lower extremity deep veins obtained. COMPARISON: None FINDINGS: The interrogated deep veins are compressible and demonstrate evidence of blood flow with normal respiratory variation and response to augmentation. IMPRESSION: No sonographic evidence of acute DVT of the left lower extremity deep veins. Electronically signed by: Romeo Kebede DO (10/19/2019 7:33 AM) [facility] DICTATED and SIGNED BY: ROMEO KEBEDE DO DATE: 10/19/19 07 Course & Med Decision Making Course & Med Decision Making Pertinent Labs and Imaging studies reviewed. (See chart for details) I've spoken with the patient and/or caregivers. I've explained the patient's condition, diagnosis and treatment plan based on information available to me at this time. I've answered the patient's and/or caregivers questions and addressed any concerns. The patient and/or caregivers have a good understanding the patient's diagnosis, condition and treatment plan as can be expected at this point. Vital signs have been stabilized. The patient's condition is stable for discharge from the emergency department. The patient will pursue further outpatient evaluation with her primary care provider or other designated consulting physician as outlined in the discharge instructions. Patient and/or caregivers are agreeable to this plan of care and follow-up instructions have been explained in detail. The patient and/or caregivers have received these instructions in written format and expressed understanding of these discharge instructions. The patient and her caregivers are aware that if any significant change in condition or worsening of symptoms should prompt him to immediately return to this of the closest emergency department. If an emergent department is not readily available I would encourage him to call 911. Dragon Disclaimer Dragon Disclaimer This electronic medical record was generated, in whole or in part, using a voice recognition dictation system. Departure Departure Impression: Primary Impression: Pedal edema Additional Impressions: Chronic cellulitis Hypertension, accelerated Disposition: HOME, SELF-CARE (at 0751) Condition: STABLE Referrals: Gratn JOY MD (PCP) Patient Instructions: Form - Blood Pressure Record Sheet, How to Take Your Blood Pressure, Teid-qb-Iaff, Managing Your High Blood Pressure, Peripheral Edema Additional Instructions: Follow-up with your primary care physician in 3-5 days Return to ER if not getting better Scripts Potassium Chloride (Klor-Con 10) 10 Meq Tablet.er 1 TAB PO DAILY for 30 Days, #30 TAB 0 Refills Prov: DAMASO MENDENHALL MD 10/19/19 Furosemide (LASIX) 20 Mg Tablet 1 TAB PO DAILY for 30 Days, #30 TAB 0 Refills Prov: DAMASO MENDENHALL MD 10/19/19 Cephalexin (KEFLEX) 500 Mg Capsule 1 CAP PO Q8HRS, #21 CAP 0 Refills Prov: DAMASO MENDENHALL MD 10/19/19 Problem Qualifiers DAMASO MENDENHALL MD Oct 19, 2019 06:18
[2019-10-19 06:28] LABS: BASO # 0.1 x10^3/uL (0.0-0.2); BASO % 1 % (0-3); EOS # 0.4 x10^3/uL (0.0-0.7); EOS % 7 % (0-3); HEMATOCRIT 41.1 % (39.0-53.0); HEMOGLOBIN 13.9 g/dL (13.0-17.5); LYMPH # 1.6 x10^3/uL (1.0-4.8); LYMPH % 27 % (24-48); MEAN CORPUSCULAR HEMOGLOBIN 28 pg (25-35); MEAN CORPUSCULAR HGB CONC 34 g/dL (31-37); MEAN CORPUSCULAR VOLUME 84 fL (79-100); MONO # 0.6 x10^3/uL (0.0-1.1); MONO % 10 % (0-9); NEUT # 3.4 x10^3/uL (1.8-7.7); NEUT % 55 % (31-73); PLATELET COUNT 157 x10^3/uL (140-400); RED BLOOD COUNT 4.91 x10^6/uL (4.30-5.70); RED CELL DISTRIBUTION WIDTH 15.1 % (11.5-14.5); WHITE BLOOD COUNT 6.2 x10^3/uL (4.0-11.0)
[2019-10-19 06:41] LABS: CALCIUM 8.9 mg/dL (8.5-10.1); CREATININE 1.2 mg/dL (0.7-1.3); GFR 74.5; POTASSIUM 3.4 mmol/L (3.5-5.1)
[2019-10-19 06:47] LABS: ALBUMIN 3.8 g/dL (3.4-5.0); ALBUMIN/GLOBULIN RATIO 0.9 (1.0-1.7); TOTAL BILIRUBIN 0.4 mg/dL (0.2-1.0); TOTAL PROTEIN 7.9 g/dL (6.4-8.2)
--- NOTE | 2019-10-19 07:36 | RAD ---
Ultrasound venous Doppler INDICATION:Left leg swelling TECHNIQUE: Grayscale, color Doppler and spectral waveform ultrasound images of the left lower extremity deep veins obtained. COMPARISON: None FINDINGS: The interrogated deep veins are compressible and demonstrate evidence of blood flow with normal respiratory variation and response to augmentation. IMPRESSION: No sonographic evidence of acute DVT of the left lower extremity deep veins. Electronically signed by: Romeo Kebede DO (10/19/2019 7:33 AM) [facility]
[2019-10-19] MEDS ORDERED: POTA10TA6 PO (07:53)
[2019-10-19] MEDS ORDERED: CEPH-264 PO (07:53)
[2019-10-19] MEDS ORDERED: FURO-69 PO (07:53)
[2019-10-19 08:08] VITALS: BP 156/79
== END 2019-10-19 08:09 | disposition home or self-care (01) ==
LOC: ER 06:32
DX: L03.116 Cellulitis of left lower limb (principal); L03.115 Cellulitis of right lower limb; R60.0 Localized edema; I10 Essential (primary) hypertension; I25.10 Atherosclerotic heart disease of native coronary artery without angina pectoris; E11.9 Type 2 diabetes mellitus without complications; E78.00 Pure hypercholesterolemia, unspecified; E78.5 Hyperlipidemia, unspecified
CPT/HCPCS: 36415; 80053; 83605; 83880; 85025; 93971; 99285-25

== ENCOUNTER 2019-10-30 14:46 | Emergency (ER) | payer OTHER ==
[~2019-10-30] VITALS: Ht 172.7 cm; Wt 92.1 kg
[~2019-10-30 14:46] MED LIST changes: +CEPH-264 PO; +FURO-69 PO; +POTA10TA6 PO
[2019-10-30 15:28] VITALS: BP 208/92
[2019-10-30] MEDS ORDERED: OSEL75CA PO (16:13)
--- NOTE | 2019-10-30 16:13 | PHYS DOC ---
Past Medical History Past Medical History: CAD, Diabetes-Type II, High Cholesterol, Hypertension, Other Additional Past Medical Histor: leukemia Past Surgical History: Cholecystectomy, Other Additional Past Surgical Histo: GALLSTONE SX Alcohol Use: None Drug Use: None Adult General Chief Complaint Chief Complaint: FLU SYMPTOM HPI HPI Patient is a 59-year-old male who presents with complaint of fever, chills, coug h and body aches that started yesterday. He states that he is not sure how high his fevers gone at home but knows that he is been running a fever. He rates the body aches as moderate. He also indicates that he had some nausea and vomiting yesterday. He denies any diarrhea.[] Review of Systems Review of Systems Constitutional: Positive fever and chills [] Eyes: Denies change in visual acuity, redness, or eye pain [] HENT: Positive congestion and sore throat [] Respiratory: Positive cough without shortness of breath [] Cardiovascular: No additional information not addressed in HPI [] GI: Denies abdominal pain. Complains of nausea and vomiting without diarrhea [] Integument: Denies rash or skin lesions [] Neurologic: Denies headache, focal weakness or sensory changes [] Allergies Allergies Allergies Coded Allergies Type Severity Reaction Last Updated Verified No Known Drug Allergies 05/11/17 No Physical Exam Physical Exam Constitutional: Well developed, well nourished, no acute distress, non-toxic appearance. [] HENT: Normocephalic, atraumatic, bilateral external ears normal, pharyngeal erythema without exudates is noted. [] Eyes: PERRLA, EOMI, conjunctiva normal, no discharge. [] Neck: Normal range of motion, no tenderness, supple. [] Cardiovascular: Regular rate and rhythm[] Lungs & Thorax: Bilateral breath sounds clear to auscultation [] Skin: Warm, dry, no erythema, no rash. [] Neurologic: Alert and oriented X 3, no focal deficits noted. [] EKG EKG [] Radiology/Procedures Radiology/Procedures [] Course & Med Decision Making Course & Med Decision Making Pertinent Labs and Imaging studies reviewed. (See chart for details) [] Dragon Disclaimer Dragon Disclaimer This electronic medical record was generated, in whole or in part, using a voice recognition dictation system. Departure Departure Impression: Primary Impression: Influenza Disposition: 01 HOME, SELF-CARE Condition: STABLE Referrals: Grant JOY MD (PCP) Patient Instructions: Influenza, Adult Scripts Oseltamivir Phosphate (TAMIFLU) 75 Mg Capsule 1 CAP PO BID, #10 CAP Prov: MICHELLE CUEVAS Jr., DO 10/30/19 MICHELLE CUEVAS Jr., DO Oct 30, 2019 16:13
[2019-10-30 16:23] LABS: INFLUENZA A PATIENT NEGATIVE (NEGATIVE); INFLUENZA B PATIENT NEGATIVE (NEGATIVE)
== END 2019-10-30 16:20 | disposition home or self-care (01) ==
LOC: ER 14:46
DX: J10.1 Influenza due to other identified influenza virus with other respiratory manifestations (principal); R11.2 Nausea with vomiting, unspecified; R05 Cough; J02.9 Acute pharyngitis, unspecified; I25.10 Atherosclerotic heart disease of native coronary artery without angina pectoris; E11.9 Type 2 diabetes mellitus without complications; E78.00 Pure hypercholesterolemia, unspecified; I10 Essential (primary) hypertension; Z90.49 Acquired absence of other specified parts of digestive tract; Z87.442 Personal history of urinary calculi
CPT/HCPCS: 87804; 99284

== ENCOUNTER 2020-01-16 12:49 | Inpatient (IN) | payer OTHER ==
[~2020-01-16] VITALS: Ht 177.8 cm; Wt 118.4 kg
[~2020-01-16 12:49] MED LIST changes: +OSEL75CA PO
[2020-01-16] MEDS ORDERED: fentaNYL PF VIAL 100 MCG/2 ML VIAL IV STA (13:12)
[2020-01-16] MEDS ORDERED: ceFAZolin SODIUM 1 GM in IV DEXTROSE 5% 50 ML IV STA (13:12)
[2020-01-16] MEDS ORDERED: diphenhydrAMINE 50 MG/ML VIAL IVP ONE (13:15)
[2020-01-16] MEDS ORDERED: ceFAZolin SODIUM IV Push 1 GM VIAL. IVP STA (13:22)
--- NOTE | 2020-01-16 13:22 | PHYS DOC ---
Past Medical History Past Medical History: CAD, Diabetes-Type II, High Cholesterol, Hypertension, Other Additional Past Medical Histor: leukemia Past Surgical History: Cholecystectomy, Other Additional Past Surgical Histo: GALLSTONE SX Smoking Status: Never Smoker Alcohol Use: None Drug Use: None Adult General Chief Complaint Chief Complaint: MULTIPLE COMPLAINTS HPI HPI Patient is a 59 year old male who presents with bilateral lower extremity swelling that has been ongoing for a month. The patient states he has been treated outpatient by his PCP, Dr. Aguilera. He states that originally helped but now it has come back and gotten worse. He saw Dr. Martinez from wound care this past Friday and was placed on unknown antibiotic. This has not helped and he states that it has moved up to his penis this morning. He states he has been having rash, edema, itching, and erythema to bilateral legs. He has a history of HTN, and DM II. He also has a history of leukemia. Review of Systems Review of Systems Constitutional: Denies fever or chills [] Eyes: Denies change in visual acuity, redness, or eye pain [] HENT: Denies nasal congestion or sore throat [] Respiratory: Denies cough or shortness of breath [] Cardiovascular: No additional information not addressed in HPI [] GI: Denies abdominal pain, nausea, vomiting, bloody stools or diarrhea [] : Denies dysuria or hematuria [] Musculoskeletal: Denies back pain or joint pain [] Integument: Reports rash, erythema to bilateral legs and penis. Neurologic: Denies headache, focal weakness or sensory changes [] Endocrine: Denies polyuria or polydipsia [] Complete systems were reviewed and found to be within normal limits, except as documented in this note. Current Medications Current Medications Current Medications Medications (Trade) Dose Ordered Sig/Fredis Start Time Stop Time Status Last Admin Dose Admin Cefazolin Sodium (Ancef) 1 gm Q8HRS STAT 01/16/20 13:22 01/16/20 13:23 DC 01/16/20 13:38 1 GM Cefazolin Sodium 1 gm/Dextrose 50 ml @ 100 mls/hr Q8HRS STAT 01/16/20 13:12 01/16/20 13:41 UNV Diphenhydramine HCl (Benadryl) 25 mg 1X ONCE 01/16/20 13:15 01/16/20 13:21 DC 01/16/20 13:38 25 MG Fentanyl Citrate (Fentanyl 2ml Vial) 50 mcg 1X STAT 01/16/20 13:12 01/16/20 13:21 DC Allergies Allergies Allergies Coded Allergies Type Severity Reaction Last Updated Verified No Known Drug Allergies 05/11/17 No Physical Exam Physical Exam Constitutional: Well developed, well nourished, no acute distress, non-toxic a ppearance. [] HENT: Normocephalic, atraumatic, bilateral external ears normal, oropharynx moist, no oral exudates, nose normal. [] Eyes: PERRLA, EOMI, conjunctiva normal, no discharge. [] Neck: Normal range of motion, no tenderness, supple, no stridor. [] Cardiovascular:Heart rate regular rhythm, no murmur [] Lungs & Thorax: Bilateral breath sounds clear to auscultation [] Abdomen: Bowel sounds normal, soft, no tenderness, no masses, no pulsatile masses. [] Skin: See below. Extremities: Bilateral edema to lower extremity, dry crusted rash diffusely, edema to penis, erythema Neurologic: Alert and oriented X 3, normal motor function, normal sensory function, no focal deficits noted. [] Psychologic: Affect normal, judgement normal, mood normal. [] Current Patient Data Vital Signs Vital Signs Date Time Temp Pulse Resp B/P (MAP) Pulse Ox O2 Delivery O2 Flow Rate FiO2 01/16/20 13:00 97.6 84 20 196/94 (128) 94 Room Air 97.6 Lab Values Laboratory Tests Test 01/16/20 13:15 White Blood Count 7.5 x10^3/uL (4.0-11.0) Red Blood Count 4.49 x10^6/uL (4.30-5.70) Hemoglobin 12.7 g/dL (13.0-17.5) L Hematocrit 37.4 % (39.0-53.0) L Mean Corpuscular Volume 83 fL (79-100) Mean Corpuscular Hemoglobin 28 pg (25-35) Mean Corpuscular Hemoglobin Concent 34 g/dL (31-37) Red Cell Distribution Width 15.1 % (11.5-14.5) H Platelet Count 203 x10^3/uL (140-400) Neutrophils (%) (Auto) 49 % (31-73) Lymphocytes (%) (Auto) 18 % (24-48) L Monocytes (%) (Auto) 8 % (0-9) Eosinophils (%) (Auto) 25 % (0-3) H Basophils (%) (Auto) 0 % (0-3) Neutrophils # (Auto) 3.6 x10^3/uL (1.8-7.7) Lymphocytes # (Auto) 1.4 x10^3/uL (1.0-4.8) Monocytes # (Auto) 0.6 x10^3/uL (0.0-1.1) Eosinophils # (Auto) 1.9 x10^3/uL (0.0-0.7) H Basophils # (Auto) 0.0 x10^3/uL (0.0-0.2) Platelet Estimate Pending Sodium Level 144 mmol/L (136-145) Potassium Level 3.4 mmol/L (3.5-5.1) L Chloride Level 109 mmol/L (98-107) H Carbon Dioxide Level 25 mmol/L (21-32) Anion Gap 10 (6-14) Blood Urea Nitrogen 18 mg/dL (8-26) Creatinine 1.3 mg/dL (0.7-1.3) Estimated GFR (Cockcroft-Gault) 67.9 BUN/Creatinine Ratio 14 (6-20) Glucose Level 174 mg/dL (70-99) H Lactic Acid Level 1.5 mmol/L (0.4-2.0) Calcium Level 8.3 mg/dL (8.5-10.1) L Total Bilirubin 0.4 mg/dL (0.2-1.0) Aspartate Amino Transferase (AST) 24 U/L (15-37) Alanine Aminotransferase (ALT) 37 U/L (16-63) Alkaline Phosphatase 124 U/L (46-116) H Total Protein 6.5 g/dL (6.4-8.2) Albumin 3.0 g/dL (3.4-5.0) L Albumin/Globulin Ratio 0.9 (1.0-1.7) L Laboratory Tests 01/16/20 13:15 Laboratory Tests 01/16/20 13:15 EKG EKG [] Radiology/Procedures Radiology/Procedures [][facility] [address] [place] [address] IMAGING REPORT Signed PATIENT: MARIXA DE LA FUENTE ACCOUNT: [id number] : 1960 LOCATION: ER AGE: 59 SEX: M EXAM STATUS: REG ER ORD. PHYSICIAN: LISA WILLIS APRN REASON: erythema, edema bilateral lower extremity PROCEDURE: VENOUS LOWER EXT BILATERAL Bilateral Lower Extremity Venous Doppler Ultrasound History: Bilateral lower extremity edema and erythema Comparison: None Procedure: Color flow, duplex, spectral analysis and 2D images are obtained with and without compression in the area of the common femoral vein, superficial femoral vein - femoral vein junction, main femoral vein (superficial femoral vein) and popliteal vein. Veins of the proximal calf are also imaged. Findings: There is normal duplex flow, color flow and compressibility of all visualized vein segments. No evidence of deep venous thrombus is present. There is reactive lymphadenopathy in the left groin. Impression: No evidence of DVT. Electronically signed by: Alvaro Marte III, MD (01/16/2020 3:20 PM) [id number] DICTATED and SIGNED BY: ALVARO MARTE III, MD DATE: 01/16/20 1520 Course & Med Decision Making Course & Med Decision Making Pertinent Labs and Imaging studies reviewed. (See chart for details) Patient has bilateral cellulitis that has failed outpatient therapy and is worsening. Will place on Cefazolin, and give Benadryl for itching. Will get labs, ultrasound and admit to Dr. Sofia. Labs and ultrasound are unremarkable. Discussed with Dr. Sofia who accepts admission. Dragon Disclaimer Dragon Disclaimer This electronic medical record was generated, in whole or in part, using a voice recognition dictation system. Departure Departure Impression: Primary Impression: Bilateral lower leg cellulitis Disposition: ADMITTED INPATIENT Admitting Physician: SAM Condition: STABLE Referrals: Grant AGUILERA MD (PCP) LISA WILLIS APRN Jan 16, 2020 13:22
[2020-01-16 13:28] LABS: BASO % 0 % (0-3); EOS # 1.9 x10^3/uL (0.0-0.7); EOS % 25 % (0-3); HEMATOCRIT 37.4 % (39.0-53.0); HEMOGLOBIN 12.7 g/dL (13.0-17.5); LYMPH # 1.4 x10^3/uL (1.0-4.8); LYMPH % 18 % (24-48); MEAN CORPUSCULAR HEMOGLOBIN 28 pg (25-35); MEAN CORPUSCULAR HGB CONC 34 g/dL (31-37); MEAN CORPUSCULAR VOLUME 83 fL (79-100); MONO # 0.6 x10^3/uL (0.0-1.1); MONO % 8 % (0-9); NEUT # 3.6 x10^3/uL (1.8-7.7); NEUT % 49 % (31-73); PLATELET COUNT 203 x10^3/uL (140-400); RED BLOOD COUNT 4.49 x10^6/uL (4.30-5.70); RED CELL DISTRIBUTION WIDTH 15.1 % (11.5-14.5); WHITE BLOOD COUNT 7.5 x10^3/uL (4.0-11.0)
[2020-01-16 13:33] LABS: CALCIUM 8.3 mg/dL (8.5-10.1); CREATININE 1.3 mg/dL (0.7-1.3); GFR 67.9; POTASSIUM 3.4 mmol/L (3.5-5.1)
[2020-01-16 13:38] LABS: ALBUMIN/GLOBULIN RATIO 0.9 (1.0-1.7); TOTAL BILIRUBIN 0.4 mg/dL (0.2-1.0); TOTAL PROTEIN 6.5 g/dL (6.4-8.2)
--- NOTE | 2020-01-16 15:22 | RAD ---
Bilateral Lower Extremity Venous Doppler Ultrasound History: Bilateral lower extremity edema and erythema Comparison: None Procedure: Color flow, duplex, spectral analysis and 2D images are obtained with and without compression in the area of the common femoral vein, superficial femoral vein - femoral vein junction, main femoral vein (superficial femoral vein) and popliteal vein. Veins of the proximal calf are also imaged. Findings: There is normal duplex flow, color flow and compressibility of all visualized vein segments. No evidence of deep venous thrombus is present. There is reactive lymphadenopathy in the left groin. Impression: No evidence of DVT. Electronically signed by: Arnulfo Dias III, MD (01/16/2020 3:20 PM) [id number]
[2020-01-16] MEDS ORDERED: ONDANSETRON PF 4 MG/2 ML VIAL. IV PRN (15:30)
[2020-01-16 15:51] LABS: % BASOS 1 % (0-3); % EOS 24 % (0-5); % LYMPHS 23 % (24-48); % MONOS 5 % (0-10); % SEGS 47 % (35-66)
[2020-01-16 15:52] LABS: PLT ESTIMATE ADEQUATE (ADEQUATE)
[2020-01-16 16:24] VITALS: BP 157/58
[2020-01-16 19:00] VITALS: BP 158/80
[2020-01-16] MEDS ORDERED: diphenhydrAMINE HCL 25 MG CAPSULE PO PRN (19:15)
[2020-01-16] MEDS: HYDROcodone/APAP 5/325MG 1 TAB TABLET PO PRN (19:15)
[2020-01-16] MEDS ORDERED: DEXTROSE 50% 25 GM / 50ML DISP.SYRIN. IV PRN (19:15)
[2020-01-16] MEDS ORDERED: ACETAMINOPHEN 325 MG TABLET. PO PRN (19:15)
[2020-01-16] MEDS ORDERED: INSU100V8 SQ (19:23)
[2020-01-16] MEDS ORDERED: FURO-69 PO (19:23)
--- NOTE | 2020-01-16 20:11 | HP ---
ADMIT DATE: 01/16/2020 CHIEF COMPLAINT: Lower extremity cellulitis. 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 Basically, he has been treated as an outpatient for lower extremity cellulitis, it is returning though it is getting worse. He has had some associated swelling that has been occurring for several weeks. I discussed the case with ER physician. We are going to admit the patient and give him IV antibiotics and consult Infectious Disease. PAST MEDICAL HISTORY: Coronary artery disease, hypertension, hyperlipidemia, diabetes, leukemia, cholecystectomy, gallstones. ALLERGIES: None. FAMILY HISTORY: Gallstones. 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 He does not drink, smoke or take drugs. MEDICATIONS: Reviewed, please refer to the MRAD. REVIEW OF SYSTEMS: GENERAL: No history of weight change, weakness or fevers. SKIN: No bruising, hair changes or rashes. EYES: No blurred, double or loss of vision. NOSE AND THROAT: No history of nosebleeds, hoarseness or sore throat. HEART: No history of palpitations, chest pain or shortness of breath on exertion. LUNGS: Denies cough, hemoptysis, wheezing or shortness of breath. GASTROINTESTINAL: Denies changes in appetite, nausea, vomiting, diarrhea or constipation. GENITOURINARY: No history of frequency, urgency, hesitancy or nocturia. NEUROLOGIC: Denies history of numbness, tingling, tremor or weakness. PSYCHIATRIC: No history of panic, anxiety or depression. ENDOCRINE: No history of heat or cold intolerance, polyuria or polydipsia. EXTREMITIES: He complains of bilateral lower extremity edema, swelling, and pain. PHYSICAL EXAMINATION: VITALS: Within normal limits and are stable. GENERAL: No apparent distress. Alert and oriented. HEENT: Normal cephalic atraumatic, external auditory canals are patent. EYES: Extraocular muscles are intact, pupils are equally round and reactive to light and accommodation. MUSKULOSKELETAL: Well developed, well nourished, good range of motion. ENDOCRINE: No thyromegaly was palpated. LYMPHATICS: No cervical chain or axillary nodes were noted. HEMATOPOIETIC: No bruising. NECK: Supple, no JVD, no thyromegaly was noted. LUNGS: Clear to auscultation in all lung jaquez without rhonchi or wheezing. HEART: RRR, S1, S2 present. Peripheral pulses intact, no obvious murmurs were noted. ABDOMEN: Soft, nontender. Positive bowel sounds no organomegaly, normal bowel sounds. EXTREMITIES: Both lower extremities are swollen. They have dry skin, they are erythematous, appeared to have cellulitis. NEUROLOGIC: Normal speech, normal tone. A & O x3, moves all extremities, no obvious focal deficits. PSYCHIATRIC: Normal affect, normal mood. Stable. SKIN: No ulcerations or rashes, good skin turgor, no jaundice. VASCULAR: Good capillary refill, neurovascular bundle appears to be intact. LABORATORY DATA: White count 7.5, potassium 3.4. ASSESSMENT AND PLAN: Bilateral lower extremity cellulitis. The patient has been admitted. I have started Rocephin 1 gram IV q. 24. Consult ID. Home meds, DVT prophylaxis. Full code. HUNTER QUINTANA DO DR: AUSTIN/marilou JOB#: [id number] / [id number]
[2020-01-16] MEDS ORDERED: metFORMIN 500 MG TABLET PO SCH (21:00)
[2020-01-16] MEDS ORDERED: cefTRIAXone IV Push 1 GM VIAL. IVP SCH (21:00)
[2020-01-16] MEDS ORDERED: metFORMIN 500 MG TABLET PO ONE ×2 (21:03→21:13)
[2020-01-16] MEDS ORDERED: METF10007 PO (21:07)
[2020-01-16] MEDS: METOPROLOL TART IMMED RELEASE 50 MG TABLET. PO SCH (21:17)
[2020-01-16] MEDS: INSULIN GLARGINE SYRINGE. SQ SCH (21:20)
[2020-01-16] MEDS: metFORMIN 500 MG TABLET PO SCH (22:21)
[2020-01-16 23:00] VITALS: BP 156/78
[2020-01-17 03:00] VITALS: BP 148/71
[2020-01-17 07:25] VITALS: BP 179/87
[2020-01-17] MEDS: metFORMIN 500 MG TABLET PO SCH (08:37)
[2020-01-17] MEDS: ASPIRIN CHEWABLE 81 MG TABLET. PO SCH (08:38)
[2020-01-17] MEDS: hydroCHLOROthiazide 25 MG TABLET PO SCH (08:38)
[2020-01-17] MEDS: METOPROLOL TART IMMED RELEASE 50 MG TABLET. PO SCH ×2 (08:39→19:46)
[2020-01-17] MEDS: amLODIPine BESYLATE 10 MG TABLET PO SCH (08:39)
[2020-01-17] MEDS: EZETIMIBE 10 MG TABLET. PO SCH (08:40)
[2020-01-17] MEDS: HYDROcodone/APAP 5/325MG 1 TAB TABLET PO PRN (08:44)
[2020-01-17] MEDS: INSULIN LISPRO 300 UNITS/3 ML VIAL. SQ SCH ×3 (08:44→17:00)
--- NOTE | 2020-01-17 09:11 | PDOC ---
PROGRESS NOTES Chief Complaint Chief Complaint A/P: Bilateral leg cellulitis Hypokalemia Coronary artery disease Hypertension Hyperlipidemia Diabetes History of Present Illness History of Present Illness Mr Méndez is a 59 yo M w/ PMHx coronary artery disease, hypertension, hyperlipidemia, diabetes, leukemia, who is admitted for lower extremity cellulitis failing outpatient therapy. Started on IV antibiotics and consulted Infectious Disease. Vitals Vitals Vital Signs Date Time Temp Pulse Resp B/P (MAP) Pulse Ox O2 Delivery O2 Flow Rate FiO2 01/17/20 08:44 97 Room Air 01/17/20 08:39 73 179/87 01/17/20 07:25 98.2 18 98.2 Physical Exam General: Alert, Oriented X3, Cooperative Heart: Regular rate, Normal S1, Normal S2 Lungs: Clear Abdomen: Normal bowel sounds, Soft Extremities: Other (Bilateral stasis dermatitis) Skin: Other (Right lateral malleolus abrasion. Blistering of bilateral ankle left foot. Stasis dermatitis. 2+ edema) Labs LABS Laboratory Tests Test 01/16/20 13:15 01/16/20 21:02 01/17/20 07:29 White Blood Count 7.5 x10^3/uL (4.0-11.0) Red Blood Count 4.49 x10^6/uL (4.30-5.70) Hemoglobin 12.7 g/dL (13.0-17.5) Hematocrit 37.4 % (39.0-53.0) Mean Corpuscular Volume 83 fL (79-100) Mean Corpuscular Hemoglobin 28 pg (25-35) Mean Corpuscular Hemoglobin Concent 34 g/dL (31-37) Red Cell Distribution Width 15.1 % (11.5-14.5) Platelet Count 203 x10^3/uL (140-400) Neutrophils (%) (Auto) 49 % (31-73) Lymphocytes (%) (Auto) 18 % (24-48) Monocytes (%) (Auto) 8 % (0-9) Eosinophils (%) (Auto) 25 % (0-3) Basophils (%) (Auto) 0 % (0-3) Neutrophils # (Auto) 3.6 x10^3/uL (1.8-7.7) Lymphocytes # (Auto) 1.4 x10^3/uL (1.0-4.8) Monocytes # (Auto) 0.6 x10^3/uL (0.0-1.1) Eosinophils # (Auto) 1.9 x10^3/uL (0.0-0.7) Basophils # (Auto) 0.0 x10^3/uL (0.0-0.2) Segmented Neutrophils % 47 % (35-66) Lymphocytes % 23 % (24-48) Monocytes % 5 % (0-10) Eosinophils % 24 % (0-5) Basophils % 1 % (0-3) Platelet Estimate Adequate (ADEQUATE) Sodium Level 144 mmol/L (136-145) Potassium Level 3.4 mmol/L (3.5-5.1) Chloride Level 109 mmol/L (98-107) Carbon Dioxide Level 25 mmol/L (21-32) Anion Gap 10 (6-14) Blood Urea Nitrogen 18 mg/dL (8-26) Creatinine 1.3 mg/dL (0.7-1.3) Estimated GFR (Cockcroft-Gault) 67.9 BUN/Creatinine Ratio 14 (6-20) Glucose Level 174 mg/dL (70-99) Lactic Acid Level 1.5 mmol/L (0.4-2.0) Calcium Level 8.3 mg/dL (8.5-10.1) Total Bilirubin 0.4 mg/dL (0.2-1.0) Aspartate Amino Transf (AST/SGOT) 24 U/L (15-37) Alanine Aminotransferase (ALT/SGPT) 37 U/L (16-63) Alkaline Phosphatase 124 U/L (46-116) Total Protein 6.5 g/dL (6.4-8.2) Albumin 3.0 g/dL (3.4-5.0) Albumin/Globulin Ratio 0.9 (1.0-1.7) Glucose (Fingerstick) 155 mg/dL (70-99) 71 mg/dL (70-99) Assessment and Plan Assessmemt and Plan Problems Medical Problems: (1) Bilateral lower leg cellulitis Status: Acute Comment Review of Relevant I have reviewed the following items deborah (where applicable) has been applied. Labs Laboratory Tests Test 01/16/20 13:15 01/16/20 21:02 01/17/20 07:29 White Blood Count 7.5 x10^3/uL (4.0-11.0) Red Blood Count 4.49 x10^6/uL (4.30-5.70) Hemoglobin 12.7 g/dL (13.0-17.5) Hematocrit 37.4 % (39.0-53.0) Mean Corpuscular Volume 83 fL (79-100) Mean Corpuscular Hemoglobin 28 pg (25-35) Mean Corpuscular Hemoglobin Concent 34 g/dL (31-37) Red Cell Distribution Width 15.1 % (11.5-14.5) Platelet Count 203 x10^3/uL (140-400) Neutrophils (%) (Auto) 49 % (31-73) Lymphocytes (%) (Auto) 18 % (24-48) Monocytes (%) (Auto) 8 % (0-9) Eosinophils (%) (Auto) 25 % (0-3) Basophils (%) (Auto) 0 % (0-3) Neutrophils # (Auto) 3.6 x10^3/uL (1.8-7.7) Lymphocytes # (Auto) 1.4 x10^3/uL (1.0-4.8) Monocytes # (Auto) 0.6 x10^3/uL (0.0-1.1) Eosinophils # (Auto) 1.9 x10^3/uL (0.0-0.7) Basophils # (Auto) 0.0 x10^3/uL (0.0-0.2) Segmented Neutrophils % 47 % (35-66) Lymphocytes % 23 % (24-48) Monocytes % 5 % (0-10) Eosinophils % 24 % (0-5) Basophils % 1 % (0-3) Platelet Estimate Adequate (ADEQUATE) Sodium Level 144 mmol/L (136-145) Potassium Level 3.4 mmol/L (3.5-5.1) Chloride Level 109 mmol/L (98-107) Carbon Dioxide Level 25 mmol/L (21-32) Anion Gap 10 (6-14) Blood Urea Nitrogen 18 mg/dL (8-26) Creatinine 1.3 mg/dL (0.7-1.3) Estimated GFR (Cockcroft-Gault) 67.9 BUN/Creatinine Ratio 14 (6-20) Glucose Level 174 mg/dL (70-99) Lactic Acid Level 1.5 mmol/L (0.4-2.0) Calcium Level 8.3 mg/dL (8.5-10.1) Total Bilirubin 0.4 mg/dL (0.2-1.0) Aspartate Amino Transf (AST/SGOT) 24 U/L (15-37) Alanine Aminotransferase (ALT/SGPT) 37 U/L (16-63) Alkaline Phosphatase 124 U/L (46-116) Total Protein 6.5 g/dL (6.4-8.2) Albumin 3.0 g/dL (3.4-5.0) Albumin/Globulin Ratio 0.9 (1.0-1.7) Glucose (Fingerstick) 155 mg/dL (70-99) 71 mg/dL (70-99) Laboratory Tests Test 01/16/20 13:15 01/16/20 21:02 01/17/20 07:29 White Blood Count 7.5 x10^3/uL (4.0-11.0) Red Blood Count 4.49 x10^6/uL (4.30-5.70) Hemoglobin 12.7 g/dL (13.0-17.5) Hematocrit 37.4 % (39.0-53.0) Mean Corpuscular Volume 83 fL (79-100) Mean Corpuscular Hemoglobin 28 pg (25-35) Mean Corpuscular Hemoglobin Concent 34 g/dL (31-37) Red Cell Distribution Width 15.1 % (11.5-14.5) Platelet Count 203 x10^3/uL (140-400) Neutrophils (%) (Auto) 49 % (31-73) Lymphocytes (%) (Auto) 18 % (24-48) Monocytes (%) (Auto) 8 % (0-9) Eosinophils (%) (Auto) 25 % (0-3) Basophils (%) (Auto) 0 % (0-3) Neutrophils # (Auto) 3.6 x10^3/uL (1.8-7.7) Lymphocytes # (Auto) 1.4 x10^3/uL (1.0-4.8) Monocytes # (Auto) 0.6 x10^3/uL (0.0-1.1) Eosinophils # (Auto) 1.9 x10^3/uL (0.0-0.7) Basophils # (Auto) 0.0 x10^3/uL (0.0-0.2) Segmented Neutrophils % 47 % (35-66) Lymphocytes % 23 % (24-48) Monocytes % 5 % (0-10) Eosinophils % 24 % (0-5) Basophils % 1 % (0-3) Platelet Estimate Adequate (ADEQUATE) Sodium Level 144 mmol/L (136-145) Potassium Level 3.4 mmol/L (3.5-5.1) Chloride Level 109 mmol/L (98-107) Carbon Dioxide Level 25 mmol/L (21-32) Anion Gap 10 (6-14) Blood Urea Nitrogen 18 mg/dL (8-26) Creatinine 1.3 mg/dL (0.7-1.3) Estimated GFR (Cockcroft-Gault) 67.9 BUN/Creatinine Ratio 14 (6-20) Glucose Level 174 mg/dL (70-99) Lactic Acid Level 1.5 mmol/L (0.4-2.0) Calcium Level 8.3 mg/dL (8.5-10.1) Total Bilirubin 0.4 mg/dL (0.2-1.0) Aspartate Amino Transf (AST/SGOT) 24 U/L (15-37) Alanine Aminotransferase (ALT/SGPT) 37 U/L (16-63) Alkaline Phosphatase 124 U/L (46-116) Total Protein 6.5 g/dL (6.4-8.2) Albumin 3.0 g/dL (3.4-5.0) Albumin/Globulin Ratio 0.9 (1.0-1.7) Glucose (Fingerstick) 155 mg/dL (70-99) 71 mg/dL (70-99) Medications Current Medications Diphenhydramine HCl (Benadryl) 25 mg 1X ONCE IVP Last administered on 01/16/20at 13:38; Start 01/16/20 at 13:15; Stop 01/16/20 at 13:21; Status DC Fentanyl Citrate (Fentanyl 2ml Vial) 50 mcg 1X STAT IV ; Start 01/16/20 at 13:12; Stop 01/16/20 at 13:21; Status DC Cefazolin Sodium 1 gm/Dextrose 50 ml @ 100 mls/hr Q8HRS STAT IV ; Start 01/16/20 at 13:12; Stop 01/16/20 at 13:41; Status UNV Cefazolin Sodium (Ancef) 1 gm Q8HRS STAT IVP Last administered on 01/16/20at 13:38; Start 01/16/20 at 13:22; Stop 01/16/20 at 13:23; Status DC Ondansetron HCl (Zofran) 4 mg PRN Q8HRS PRN IV NAUSEA/VOMITING; Start 01/16/20 at 15:30; Stop 01/17/20 at 15:29 Acetaminophen/ Hydrocodone Bitart (Lortab 5/325) 1 tab PRN Q4HRS PRN PO PAIN Last administered on 01/17/20at 08:44; Start 01/16/20 at 19:15 Ceftriaxone Sodium (Rocephin) 1 gm Q24H IVP Last administered on 01/16/20at 21:15; Start 01/16/20 at 21:00 Diphenhydramine HCl (Benadryl) 25 mg PRN Q6HRS PRN PO ITCHING; Start 01/16/20 at 19:15 Acetaminophen (Tylenol) 650 mg PRN Q6HRS PRN PO PAIN; Start 01/16/20 at 19:15 Insulin Human Lispro (HumaLOG) 0-5 UNITS TIDWMEALS SQ ; Start 01/17/20 at 08:00 Dextrose (Dextrose 50%-Water Syringe) 12.5 gm PRN Q15MIN PRN IV SEE COMMENTS; Start 01/16/20 at 19:15 Aspirin (Children'S Aspirin) 81 mg DAILY PO Last administered on 01/17/20at 08:38; Start 01/17/20 at 09:00 EZETIMIBE (Zetia) 10 mg DAILY PO Last administered on 01/17/20at 08:40; Start 01/17/20 at 09:00 Insulin Glargine (Lantus Syringe) 100 unit HS SQ Last administered on 01/16/20at 21:20; Start 01/16/20 at 21:00 Metformin HCl (Glucophage) 500 mg QID PO ; Start 01/16/20 at 21:00; Stop 01/16/20 at 21:56; Status DC Amlodipine Besylate (Norvasc) 10 mg DAILY PO Last administered on 01/17/20at 08:39; Start 01/17/20 at 09:00 Hydrochlorothiazide (Hydrodiuril) 25 mg DAILY PO Last administered on 01/17/20at 08:38; Start 01/17/20 at 09:00 Metoprolol Tartrate (Lopressor) 100 mg BID PO Last administered on 01/17/20at 08:39; Start 01/16/20 at 21:00 Metformin HCl (Glucophage) 1,000 mg BIDWMEALS PO Last administered on 01/17/20at 08:37; Start 01/16/20 at 22:00 Metformin HCl (Glucophage) 500 mg STK-MED ONCE PO ; Start 01/16/20 at 21:03; Stop 01/16/20 at 21:56; Status DC Metformin HCl (Glucophage) 500 mg STK-MED ONCE PO ; Start 01/16/20 at 21:13; Stop 01/16/20 at 21:56; Status DC Active Scripts Active Tamiflu (Oseltamivir Phosphate) 75 Mg Capsule 1 Cap PO BID Klor-Con 10 (Potassium Chloride) 10 Meq Tablet.er 1 Tab PO DAILY 30 Days Lasix (Furosemide) 20 Mg Tablet 1 Tab PO DAILY 30 Days Keflex (Cephalexin) 500 Mg Capsule 1 Cap PO Q8HRS Orphenadrine Citrate 100 Mg Tablet.er 100 Mg PO BID PRN Naproxen 500 Mg Tablet 1 Tab PO BID PRN Reported Metformin Hcl 1,000 Mg Tablet 1,000 Mg PO BID Lasix (Furosemide) 20 Mg Tablet 1 Tab PO PRN PRN 30 Days Lantus (Insulin Glargine,Hum.rec.anlog) 100 Unit/1 Ml Vial 100 Unit SQ HS Aspirin 81 Mg Tab.chew 1 Tab PO DAILY Hydrochlorothiazide Tablet (Hydrochlorothiazide) 12.5 Mg Tablet 2 Tab PO DAILY Repaglinide 1 Mg Tablet 1 Mg PO TID Zetia (Ezetimibe) 10 Mg Tablet 1 Tab PO DAILY Metoprolol Tartrate 100 Mg Tablet 1 Tab PO BID Amlodipine-Benazepril 10-20 Mg (Amlodipine Besylate/Benazepril) 1 Each Capsule 1 Cap PO DAILY Vitals/I & O Vital Sign - Last 24 Hours 01/16/20 01/16/20 01/16/20 01/16/20 13:00 13:34 14:32 15:02 Temp 97.6 97.6 Pulse 84 84 82 82 Resp 20 B/P (MAP) 196/94 (128) 167/79 (108) 176/83 (114) 173/81 (111) Pulse Ox 94 95 95 95 O2 Delivery Room Air Room Air Room Air Room Air 01/16/20 01/16/20 01/16/20 01/16/20 16:24 17:00 19:00 19:15 Temp 97.9 97.7 97.9 97.7 Pulse 83 80 Resp 18 18 16 B/P (MAP) 157/58 (91) 158/80 (106) Pulse Ox 94 96 O2 Delivery Room Air Room Air Room Air Room Air 01/16/20 01/16/20 01/16/20 01/16/20 19:45 20:15 21:17 23:00 Temp 99.0 99.0 Pulse 82 80 Resp 18 18 B/P (MAP) 158/80 156/78 (104) Pulse Ox 98 O2 Delivery Room Air Room Air Room Air 01/17/20 01/17/20 01/17/20 01/17/20 03:00 07:25 08:39 08:39 Temp 98.5 98.2 98.5 98.2 Pulse 57 73 73 73 Resp 18 18 B/P (MAP) 148/71 (96) 179/87 (117) 179/87 179/87 Pulse Ox 95 97 O2 Delivery Room Air Room Air 01/17/20 08:44 Pulse Ox 97 O2 Delivery Room Air Intake and Output 01/16/20 01/16/20 01/17/20 15:00 23:00 07:00 Intake Total 800 ml 240 ml Balance 800 ml 240 ml AIME COROAN MD Jan 17, 2020 09:11
[2020-01-17 10:20] VITALS: BP 124/94
[2020-01-17] MEDS ORDERED: PERMETHRIN 5% TOPICAL CREAM 60GM TUBE. TP ONE (13:00)
--- NOTE | 2020-01-17 13:26 | PDOC ---
Infectious Disease Note Vital Sign Vital Signs Vital Signs Date Time Temp Pulse Resp B/P (MAP) Pulse Ox O2 Delivery O2 Flow Rate FiO2 01/17/20 10:20 97.7 70 18 124/94 (104) 96 Room Air 97.7 Labs Lab Laboratory Tests Test 01/16/20 13:15 01/16/20 21:02 01/17/20 07:29 01/17/20 11:46 White Blood Count 7.5 x10^3/uL (4.0-11.0) Red Blood Count 4.49 x10^6/uL (4.30-5.70) Hemoglobin 12.7 g/dL (13.0-17.5) Hematocrit 37.4 % (39.0-53.0) Mean Corpuscular Volume 83 fL (79-100) Mean Corpuscular Hemoglobin 28 pg (25-35) Mean Corpuscular Hemoglobin Concent 34 g/dL (31-37) Red Cell Distribution Width 15.1 % (11.5-14.5) Platelet Count 203 x10^3/uL (140-400) Neutrophils (%) (Auto) 49 % (31-73) Lymphocytes (%) (Auto) 18 % (24-48) Monocytes (%) (Auto) 8 % (0-9) Eosinophils (%) (Auto) 25 % (0-3) Basophils (%) (Auto) 0 % (0-3) Neutrophils # (Auto) 3.6 x10^3/uL (1.8-7.7) Lymphocytes # (Auto) 1.4 x10^3/uL (1.0-4.8) Monocytes # (Auto) 0.6 x10^3/uL (0.0-1.1) Eosinophils # (Auto) 1.9 x10^3/uL (0.0-0.7) Basophils # (Auto) 0.0 x10^3/uL (0.0-0.2) Segmented Neutrophils % 47 % (35-66) Lymphocytes % 23 % (24-48) Monocytes % 5 % (0-10) Eosinophils % 24 % (0-5) Basophils % 1 % (0-3) Platelet Estimate Adequate (ADEQUATE) Sodium Level 144 mmol/L (136-145) Potassium Level 3.4 mmol/L (3.5-5.1) Chloride Level 109 mmol/L (98-107) Carbon Dioxide Level 25 mmol/L (21-32) Anion Gap 10 (6-14) Blood Urea Nitrogen 18 mg/dL (8-26) Creatinine 1.3 mg/dL (0.7-1.3) Estimated GFR (Cockcroft-Gault) 67.9 BUN/Creatinine Ratio 14 (6-20) Glucose Level 174 mg/dL (70-99) Lactic Acid Level 1.5 mmol/L (0.4-2.0) Calcium Level 8.3 mg/dL (8.5-10.1) Total Bilirubin 0.4 mg/dL (0.2-1.0) Aspartate Amino Transf (AST/SGOT) 24 U/L (15-37) Alanine Aminotransferase (ALT/SGPT) 37 U/L (16-63) Alkaline Phosphatase 124 U/L (46-116) Total Protein 6.5 g/dL (6.4-8.2) Albumin 3.0 g/dL (3.4-5.0) Albumin/Globulin Ratio 0.9 (1.0-1.7) Glucose (Fingerstick) 155 mg/dL (70-99) 71 mg/dL (70-99) 91 mg/dL (70-99) Objective Assessment Bilateral LE lymphedema EF 60 % 11/07/2018. Neg cardiac cath 11/10/2018 Vladimir LE cellulitis Eosinophila Tinea DM H/o Leukemia Plan Plan of Care Change to Zosyn - Unasyn still limited Given Eosinophilia - dose Permethrin Add Fluconazole F/u labs and cults Lymphedema per primary F/u Eosinophilia Thank you # [id number] JENNIFER CODY MD Jan 17, 2020 13:26
[2020-01-17] MEDS: PIPERACILLIN/TAZOBACTAM 3.375 GM in IV NORMAL SALINE 50ML 50 ML IV SCH ×3 (14:07→23:55)
[2020-01-17] MEDS: MICONAZOLE NITRATE 2% TOPICAL CREAM 28GM TUBE. TP SCH ×2 (14:07→19:46)
[2020-01-17] MEDS: FLUCONAZOLE 100 MG TABLET. PO SCH (14:09)
--- NOTE | 2020-01-17 14:16 | NUR ---
SW following. Discussed with RN, pt is from home with spouse. ID consulted. RN advised no SW needs at this time. SW will continue to follow.
[2020-01-17 15:04] VITALS: BP 164/82
[2020-01-17 19:00] VITALS: BP 190/74
[2020-01-17] MEDS: LACTOBACILLUS RHAMNOSUS GG 1 CAPSULE. PO SCH (19:45)
[2020-01-17] MEDS: INSULIN GLARGINE SYRINGE. SQ SCH (21:18)
[2020-01-18 03:00] VITALS: BP 167/78
--- NOTE | 2020-01-18 03:58 | CONS ---
DATE OF CONSULTATION: 01/17/2020 INFECTIOUS DISEASE CONSULTATION NOTE LOCATION: The patient is in room 402. REQUESTING PHYSICIAN: Dr. Kaelyn Sofia. REASON FOR CONSULTATION: Bilateral lower extremity cellulitis. HISTORY OF PRESENT ILLNESS: The patient is a pleasant 59-year-old gentleman with history of diabetes, also has a distant history of leukemia, who has had complications with lower extremity swelling for approximately 2 weeks or so. Denies any trauma to the area. He has been seen in the outpatient setting and was referred to the [facility] and went there last week where he was prescribed an unknown antibiotic. He states he took it twice a day, but does not remember the name. He states initially it helped with some of his legs. He states this kind of dried up a little bit, but swelling persisted and increased into his groin area, so he presented to [facility]. Denied any fevers or chills or sweats. He has no headaches, sinus issues, sore throat, cough or chest pain. No dysuria, frequency, or urgency. No diarrhea or cramps. He does have a dog, but has no trauma associated with the dog. On arrival, he had a white count of 7.5, but had 24% eosinophils, 23% lymphocytes, and 47% segs. He was given a dose of cefazolin, has been changed to Rocephin. Bilateral lower extremity ultrasounds were negative. Currently, he is sitting in a chair. He is feeling somewhat better. PAST MEDICAL HISTORY: Positive for type 2 diabetes, hypertension, leukemia, gallstones. PAST SURGICAL HISTORY: Positive for cholecystectomy. He has had a cardiac catheterization, did not show any coronary artery disease back in 11/10/2018, also had an echo on 11/07/2018 at that time had an EF of 60%. REVIEW OF SYSTEMS: Otherwise negative except as mentioned above. 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 No tobacco, alcohol or drugs. Does have a dog. FAMILY HISTORY: Positive for gallstones. CURRENT MEDICATIONS: Include Norvasc, aspirin, Rocephin, Ancef x 1, Benadryl, Zetia, hydrochlorothiazide, insulin, and metformin. PHYSICAL EXAMINATION: VITAL SIGNS: He has been afebrile, temperature 97.7, pulse 70, respirations 18, blood pressure 124/94, satting 96% on room air. CONSTITUTIONAL: He is in a chair. He is in room. He is in no acute distress. He is cooperative. HEENT: Pupils equal and reactive. He has normal conjunctivae. Oral cavity, pharynx is clear. No signs of breakdown. NECK: Supple with good range of motion, no JVD. LUNGS: Clear to auscultation, no wheeze. HEART: S1, S2. ABDOMEN: Obese, soft, nontender, nondistended, positive bowel sounds. EXTREMITIES: Without clubbing, cyanosis. He has a 2-3+ lower extremity edema bilaterally. He has got scaling skin. There is some mild erythema. There is no warmth. It goes from the tops of his ankles up to his groin area. His feet are spared. He does have some mild tinea associated with his toes. SKIN: Warm to touch without signs of rash, otherwise. GENITOURINARY: Without gross erythema or warmth. It is nontender. NEUROLOGIC: He is nonfocal. PSYCHIATRIC: Affect is appropriate. LABORATORY VALUES: White count 7.5, hemoglobin 12.7, platelets 203, segs 47, lymphs 23, monos 5, eosinophils 24. Glucose 174, creatinine 1.3, AST 24, ALT 37. Radiology reviewed in history of present illness. IMPRESSION: 1. Bilateral lower extremity lymphedema, ejection fraction 60%, 11/07/2018, negative cardiac catheterization, 11/10/2018. 2. Bilateral lower extremity cellulitis. 3. Eosinophilia. 4. Tinea. 5. Diabetes. 6. History of leukemia. RECOMMENDATIONS: We will change Zosyn. Unasyn is still limited. Given his eosinophilia, we will dose permethrin, add fluconazole, follow up labs, cultures, lymphedema per primary, follow up eosinophilia. Thank you for the patient's care. If you have any questions, please do not hesitate to contact me. JENNIFER CODY MD DR: JIAN/marilou JOB#: [id number] / [id number] SAMMI
[2020-01-18 04:58] LABS: BASO # 0.1 x10^3/uL (0.0-0.2); BASO % 1 % (0-3); EOS # 1.8 x10^3/uL (0.0-0.7); EOS % 25 % (0-3); HEMATOCRIT 36.5 % (39.0-53.0); HEMOGLOBIN 12.4 g/dL (13.0-17.5); LYMPH # 1.5 x10^3/uL (1.0-4.8); LYMPH % 21 % (24-48); MEAN CORPUSCULAR HEMOGLOBIN 28 pg (25-35); MEAN CORPUSCULAR HGB CONC 34 g/dL (31-37); MEAN CORPUSCULAR VOLUME 83 fL (79-100); MONO # 0.8 x10^3/uL (0.0-1.1); MONO % 11 % (0-9); NEUT # 3.1 x10^3/uL (1.8-7.7); NEUT % 43 % (31-73); PLATELET COUNT 193 x10^3/uL (140-400); RED BLOOD COUNT 4.42 x10^6/uL (4.30-5.70); RED CELL DISTRIBUTION WIDTH 15.3 % (11.5-14.5); WHITE BLOOD COUNT 7.3 x10^3/uL (4.0-11.0)
[2020-01-18] MEDS: PIPERACILLIN/TAZOBACTAM 3.375 GM in IV NORMAL SALINE 50ML 50 ML IV SCH ×4 (05:41→23:47)
[2020-01-18 05:56] LABS: % BASOS 2 % (0-3); % EOS 30 % (0-5); % LYMPHS 20 % (24-48); % MONOS 7 % (0-10); % SEGS 41 % (35-66); NUCLEATED RBC 1; PLT ESTIMATE ADEQUATE (ADEQUATE)
[2020-01-18 05:57] LABS: ANISOCYTOSIS SLIGHT; POLYCHROMASIA SLIGHT; TEAR DROP CELLS OCC
[2020-01-18 07:00] VITALS: BP 143/75
[2020-01-18] MEDS: INSULIN LISPRO 300 UNITS/3 ML VIAL. SQ SCH ×3 (08:00→17:00)
--- NOTE | 2020-01-18 09:04 | PDOC ---
PROGRESS NOTES Chief Complaint Chief Complaint A/P: Bilateral leg cellulitis Hypokalemia Coronary artery disease Hypertension Hyperlipidemia Diabetes History of Present Illness History of Present Illness Mr Méndez is a 59 yo M w/ PMHx coronary artery disease, hypertension, hyperlipidemia, diabetes, leukemia, who is admitted for lower extremity cellulitis failing outpatient therapy. Started on IV antibiotics and consulted Infectious Disease. Right leg a bit better, still pruritic. Started on permethrin with some improvement. No CP or SOB. No fevers Vitals Vitals Vital Signs Date Time Temp Pulse Resp B/P (MAP) Pulse Ox O2 Delivery O2 Flow Rate FiO2 01/18/20 07:00 98.1 74 16 143/75 (97) 92 Room Air 98.1 01/17/20 15:04 Physical Exam General: Alert, Oriented X3, Cooperative Heart: Regular rate, Normal S1, Normal S2 Lungs: Clear Abdomen: Normal bowel sounds, Soft Extremities: Other (Bilateral stasis dermatitis) Skin: Other (Right lateral malleolus abrasion. Blistering of bilateral ankle left foot. Stasis dermatitis. 2+ edema) Labs LABS Laboratory Tests Test 01/17/20 11:46 01/17/20 16:00 01/17/20 20:07 01/18/20 03:45 Glucose (Fingerstick) 91 mg/dL (70-99) 115 mg/dL (70-99) 204 mg/dL (70-99) White Blood Count 7.3 x10^3/uL (4.0-11.0) Red Blood Count 4.42 x10^6/uL (4.30-5.70) Hemoglobin 12.4 g/dL (13.0-17.5) Hematocrit 36.5 % (39.0-53.0) Mean Corpuscular Volume 83 fL (79-100) Mean Corpuscular Hemoglobin 28 pg (25-35) Mean Corpuscular Hemoglobin Concent 34 g/dL (31-37) Red Cell Distribution Width 15.3 % (11.5-14.5) Platelet Count 193 x10^3/uL (140-400) Neutrophils (%) (Auto) 43 % (31-73) Lymphocytes (%) (Auto) 21 % (24-48) Monocytes (%) (Auto) 11 % (0-9) Eosinophils (%) (Auto) 25 % (0-3) Basophils (%) (Auto) 1 % (0-3) Neutrophils # (Auto) 3.1 x10^3/uL (1.8-7.7) Lymphocytes # (Auto) 1.5 x10^3/uL (1.0-4.8) Monocytes # (Auto) 0.8 x10^3/uL (0.0-1.1) Eosinophils # (Auto) 1.8 x10^3/uL (0.0-0.7) Basophils # (Auto) 0.1 x10^3/uL (0.0-0.2) Segmented Neutrophils % 41 % (35-66) Lymphocytes % 20 % (24-48) Monocytes % 7 % (0-10) Eosinophils % 30 % (0-5) Basophils % 2 % (0-3) Nucleated Red Blood Cells 1 Platelet Estimate Adequate (ADEQUATE) Large Platelets Occ Polychromasia Slight Anisocytosis Slight Tear Drop Cells Occ Test 01/18/20 08:07 Glucose (Fingerstick) 113 mg/dL (70-99) Assessment and Plan Assessmemt and Plan Problems Medical Problems: (1) Bilateral lower leg cellulitis Status: Acute Comment Review of Relevant I have reviewed the following items deborah (where applicable) has been applied. Labs Laboratory Tests Test 01/16/20 13:15 01/16/20 21:02 01/17/20 07:29 01/17/20 11:46 White Blood Count 7.5 x10^3/uL (4.0-11.0) Red Blood Count 4.49 x10^6/uL (4.30-5.70) Hemoglobin 12.7 g/dL (13.0-17.5) Hematocrit 37.4 % (39.0-53.0) Mean Corpuscular Volume 83 fL (79-100) Mean Corpuscular Hemoglobin 28 pg (25-35) Mean Corpuscular Hemoglobin Concent 34 g/dL (31-37) Red Cell Distribution Width 15.1 % (11.5-14.5) Platelet Count 203 x10^3/uL (140-400) Neutrophils (%) (Auto) 49 % (31-73) Lymphocytes (%) (Auto) 18 % (24-48) Monocytes (%) (Auto) 8 % (0-9) Eosinophils (%) (Auto) 25 % (0-3) Basophils (%) (Auto) 0 % (0-3) Neutrophils # (Auto) 3.6 x10^3/uL (1.8-7.7) Lymphocytes # (Auto) 1.4 x10^3/uL (1.0-4.8) Monocytes # (Auto) 0.6 x10^3/uL (0.0-1.1) Eosinophils # (Auto) 1.9 x10^3/uL (0.0-0.7) Basophils # (Auto) 0.0 x10^3/uL (0.0-0.2) Segmented Neutrophils % 47 % (35-66) Lymphocytes % 23 % (24-48) Monocytes % 5 % (0-10) Eosinophils % 24 % (0-5) Basophils % 1 % (0-3) Platelet Estimate Adequate (ADEQUATE) Sodium Level 144 mmol/L (136-145) Potassium Level 3.4 mmol/L (3.5-5.1) Chloride Level 109 mmol/L (98-107) Carbon Dioxide Level 25 mmol/L (21-32) Anion Gap 10 (6-14) Blood Urea Nitrogen 18 mg/dL (8-26) Creatinine 1.3 mg/dL (0.7-1.3) Estimated GFR (Cockcroft-Gault) 67.9 BUN/Creatinine Ratio 14 (6-20) Glucose Level 174 mg/dL (70-99) Lactic Acid Level 1.5 mmol/L (0.4-2.0) Calcium Level 8.3 mg/dL (8.5-10.1) Total Bilirubin 0.4 mg/dL (0.2-1.0) Aspartate Amino Transf (AST/SGOT) 24 U/L (15-37) Alanine Aminotransferase (ALT/SGPT) 37 U/L (16-63) Alkaline Phosphatase 124 U/L (46-116) Total Protein 6.5 g/dL (6.4-8.2) Albumin 3.0 g/dL (3.4-5.0) Albumin/Globulin Ratio 0.9 (1.0-1.7) Glucose (Fingerstick) 155 mg/dL (70-99) 71 mg/dL (70-99) 91 mg/dL (70-99) Test 01/17/20 16:00 01/17/20 20:07 3/3/20 03:45 01/18/20 08:07 Glucose (Fingerstick) 115 mg/dL (70-99) 204 mg/dL (70-99) 113 mg/dL (70-99) White Blood Count 7.3 x10^3/uL (4.0-11.0) Red Blood Count 4.42 x10^6/uL (4.30-5.70) Hemoglobin 12.4 g/dL (13.0-17.5) Hematocrit 36.5 % (39.0-53.0) Mean Corpuscular Volume 83 fL (79-100) Mean Corpuscular Hemoglobin 28 pg (25-35) Mean Corpuscular Hemoglobin Concent 34 g/dL (31-37) Red Cell Distribution Width 15.3 % (11.5-14.5) Platelet Count 193 x10^3/uL (140-400) Neutrophils (%) (Auto) 43 % (31-73) Lymphocytes (%) (Auto) 21 % (24-48) Monocytes (%) (Auto) 11 % (0-9) Eosinophils (%) (Auto) 25 % (0-3) Basophils (%) (Auto) 1 % (0-3) Neutrophils # (Auto) 3.1 x10^3/uL (1.8-7.7) Lymphocytes # (Auto) 1.5 x10^3/uL (1.0-4.8) Monocytes # (Auto) 0.8 x10^3/uL (0.0-1.1) Eosinophils # (Auto) 1.8 x10^3/uL (0.0-0.7) Basophils # (Auto) 0.1 x10^3/uL (0.0-0.2) Segmented Neutrophils % 41 % (35-66) Lymphocytes % 20 % (24-48) Monocytes % 7 % (0-10) Eosinophils % 30 % (0-5) Basophils % 2 % (0-3) Nucleated Red Blood Cells 1 Platelet Estimate Adequate (ADEQUATE) Large Platelets Occ Polychromasia Slight Anisocytosis Slight Tear Drop Cells Occ Laboratory Tests Test 01/17/20 11:46 01/17/20 16:00 01/17/20 20:07 01/18/20 03:45 Glucose (Fingerstick) 91 mg/dL (70-99) 115 mg/dL (70-99) 204 mg/dL (70-99) White Blood Count 7.3 x10^3/uL (4.0-11.0) Red Blood Count 4.42 x10^6/uL (4.30-5.70) Hemoglobin 12.4 g/dL (13.0-17.5) Hematocrit 36.5 % (39.0-53.0) Mean Corpuscular Volume 83 fL (79-100) Mean Corpuscular Hemoglobin 28 pg (25-35) Mean Corpuscular Hemoglobin Concent 34 g/dL (31-37) Red Cell Distribution Width 15.3 % (11.5-14.5) Platelet Count 193 x10^3/uL (140-400) Neutrophils (%) (Auto) 43 % (31-73) Lymphocytes (%) (Auto) 21 % (24-48) Monocytes (%) (Auto) 11 % (0-9) Eosinophils (%) (Auto) 25 % (0-3) Basophils (%) (Auto) 1 % (0-3) Neutrophils # (Auto) 3.1 x10^3/uL (1.8-7.7) Lymphocytes # (Auto) 1.5 x10^3/uL (1.0-4.8) Monocytes # (Auto) 0.8 x10^3/uL (0.0-1.1) Eosinophils # (Auto) 1.8 x10^3/uL (0.0-0.7) Basophils # (Auto) 0.1 x10^3/uL (0.0-0.2) Segmented Neutrophils % 41 % (35-66) Lymphocytes % 20 % (24-48) Monocytes % 7 % (0-10) Eosinophils % 30 % (0-5) Basophils % 2 % (0-3) Nucleated Red Blood Cells 1 Platelet Estimate Adequate (ADEQUATE) Large Platelets Occ Polychromasia Slight Anisocytosis Slight Tear Drop Cells Occ Test 01/18/20 08:07 Glucose (Fingerstick) 113 mg/dL (70-99) Microbiology 01/16/20 Blood Culture - Preliminary, Resulted NO GROWTH AFTER 1 DAY Medications Current Medications Diphenhydramine HCl (Benadryl) 25 mg 1X ONCE IVP Last administered on 01/16/20at 13:38; Start 01/16/20 at 13:15; Stop 01/16/20 at 13:21; Status DC Fentanyl Citrate (Fentanyl 2ml Vial) 50 mcg 1X STAT IV ; Start 01/16/20 at 13:12; Stop 01/16/20 at 13:21; Status DC Cefazolin Sodium 1 gm/Dextrose 50 ml @ 100 mls/hr Q8HRS STAT IV ; Start 01/16/20 at 13:12; Stop 01/16/20 at 13:41; Status UNV Cefazolin Sodium (Ancef) 1 gm Q8HRS STAT IVP Last administered on 01/16/20at 13:38; Start 01/16/20 at 13:22; Stop 01/16/20 at 13:23; Status DC Ondansetron HCl (Zofran) 4 mg PRN Q8HRS PRN IV NAUSEA/VOMITING; Start 01/16/20 at 15:30; Stop 01/17/20 at 15:29; Status DC Acetaminophen/ Hydrocodone Bitart (Lortab 5/325) 1 tab PRN Q4HRS PRN PO MODERATE PAIN, SEVERE PAIN Last administered on 01/17/20at 08:44; Start 01/16/20 at 19:15 Ceftriaxone Sodium (Rocephin) 1 gm Q24H IVP Last administered on 01/16/20at 21:15; Start 01/16/20 at 21:00; Stop 01/17/20 at 13:19; Status DC Diphenhydramine HCl (Benadryl) 25 mg PRN Q6HRS PRN PO ITCHING; Start 01/16/20 at 19:15 Acetaminophen (Tylenol) 650 mg PRN Q6HRS PRN PO MILD PAIN 1-3; Start 01/16/20 at 19:15 Insulin Human Lispro (HumaLOG) 0-5 UNITS TIDWMEALS SQ ; Start 01/17/20 at 08:00 Dextrose (Dextrose 50%-Water Syringe) 12.5 gm PRN Q15MIN PRN IV SEE COMMENTS; Start 01/16/20 at 19:15 Aspirin (Children'S Aspirin) 81 mg DAILY PO Last administered on 01/17/20at 08:38; Start 01/17/20 at 09:00 EZETIMIBE (Zetia) 10 mg DAILY PO Last administered on 01/17/20 08:40; Start 01/17/20 at 09:00 Insulin Glargine (Lantus Syringe) 100 unit HS SQ Last administered on 01/17/20at 21:18; Start 01/16/20 at 21:00 Metformin HCl (Glucophage) 500 mg QID PO ; Start 01/16/20 at 21:00; Stop 01/16/20 at 21:56; Status DC Amlodipine Besylate (Norvasc) 10 mg DAILY PO Last administered on 01/17/20at 08:39; Start 01/17/20 at 09:00 Hydrochlorothiazide (Hydrodiuril) 25 mg DAILY PO Last administered on 01/17/20 08:38; Start 01/17/20 at 09:00 Metoprolol Tartrate (Lopressor) 100 mg BID PO Last administered on 01/17/20at 19:46; Start 01/16/20 at 21:00 Metformin HCl (Glucophage) 1,000 mg BIDWMEALS PO Last administered on 01/17/20at 08:37; Start 01/16/20 at 22:00; Stop 01/17/20 at 09:15; Status DC Metformin HCl (Glucophage) 500 mg STK-MED ONCE PO ; Start 01/16/20 at 21:03; Stop 01/16/20 at 21:56; Status DC Metformin HCl (Glucophage) 500 mg STK-MED ONCE PO ; Start 01/16/20 at 21:13; Stop 01/16/20 at 21:56; Status DC Lactobacillus Rhamnosus (Culturelle) 1 cap BID PO Last administered on 01/17/20at 19:45; Start 01/17/20 at 21:00 Miconazole Nitrate (Monistat-Derm) 1 oly BID TP Last administered on 01/17/20at 19:46; Start 01/17/20 at 11:30 Fluconazole (Diflucan) 200 mg DAILY PO Last administered on 01/17/20at 14:09; Start 01/17/20 at 13:00 Piperacillin Sod/ Tazobactam Sod 3.375 gm/Sodium Chloride 50 ml @ 100 mls/hr Q6HRS IV Last administered on 01/18/20 05:41; Start 01/17/20 at 13:00 Permethrin (Elimite) 1 oly 1X ONCE TP Last administered on 01/17/20at 14:07; Start 01/17/20 at 13:00; Stop 01/17/20 at 13:20; Status DC Active Scripts Active Tamiflu (Oseltamivir Phosphate) 75 Mg Capsule 1 Cap PO BID Klor-Con 10 (Potassium Chloride) 10 Meq Tablet.er 1 Tab PO DAILY 30 Days Lasix (Furosemide) 20 Mg Tablet 1 Tab PO DAILY 30 Days Keflex (Cephalexin) 500 Mg Capsule 1 Cap PO Q8HRS Orphenadrine Citrate 100 Mg Tablet.er 100 Mg PO BID PRN Naproxen 500 Mg Tablet 1 Tab PO BID PRN Reported Metformin Hcl 1,000 Mg Tablet 1,000 Mg PO BID Lasix (Furosemide) 20 Mg Tablet 1 Tab PO PRN PRN 30 Days Lantus (Insulin Glargine,Hum.rec.anlog) 100 Unit/1 Ml Vial 100 Unit SQ HS Aspirin 81 Mg Tab.chew 1 Tab PO DAILY Hydrochlorothiazide Tablet (Hydrochlorothiazide) 12.5 Mg Tablet 2 Tab PO DAILY Repaglinide 1 Mg Tablet 1 Mg PO TID Zetia (Ezetimibe) 10 Mg Tablet 1 Tab PO DAILY Metoprolol Tartrate 100 Mg Tablet 1 Tab PO BID Amlodipine-Benazepril 10-20 Mg (Amlodipine Besylate/Benazepril) 1 Each Capsule 1 Cap PO DAILY Vitals/I & O Vital Sign - Last 24 Hours 01/17/20 01/17/20 01/17/20 01/17/20 09:44 10:20 15:04 19:00 Temp 97.7 97.9 97.4 97.7 97.9 97.4 Pulse 70 68 79 Resp 18 16 18 B/P (MAP) 124/94 (104) 164/82 (109) 190/74 (112) Pulse Ox 97 96 99 98 O2 Delivery Room Air Room Air Room Air Room Air O2 Flow Rate 01/17/20 01/17/20 01/17/20 01/18/20 19:45 19:46 23:00 03:00 Temp 98.5 98.9 98.5 98.9 Pulse 79 73 74 Resp 18 18 B/P (MAP) 190/74 167/78 (107) Pulse Ox 98 97 O2 Delivery Room Air Room Air Room Air 01/18/20 07:00 Temp 98.1 98.1 Pulse 74 Resp 16 B/P (MAP) 143/75 (97) Pulse Ox 92 O2 Delivery Room Air AIME CORONA MD Jan 18, 2020 09:04
--- NOTE | 2020-01-18 09:36 | NUR ---
SW following. Discussed with RN, trying to decide whether this is an allergic reaction or infection. RN advised no SW needs at this time. SW will continue to follow.
[2020-01-18] MEDS: amLODIPine BESYLATE 10 MG TABLET PO SCH (09:49)
[2020-01-18] MEDS: EZETIMIBE 10 MG TABLET. PO SCH (09:49)
[2020-01-18] MEDS: MICONAZOLE NITRATE 2% TOPICAL CREAM 28GM TUBE. TP SCH ×2 (09:50→20:53)
[2020-01-18] MEDS: FLUCONAZOLE 100 MG TABLET. PO SCH (09:50)
[2020-01-18] MEDS: METOPROLOL TART IMMED RELEASE 50 MG TABLET. PO SCH ×2 (09:50→20:51)
[2020-01-18] MEDS: hydroCHLOROthiazide 25 MG TABLET PO SCH (09:50)
[2020-01-18] MEDS: ASPIRIN CHEWABLE 81 MG TABLET. PO SCH (09:50)
[2020-01-18] MEDS: LACTOBACILLUS RHAMNOSUS GG 1 CAPSULE. PO SCH ×2 (09:50→20:49)
--- NOTE | 2020-01-18 10:09 | PDOC ---
Infectious Disease Note Subjective Subjective Feels some better. Has less itch No F/C/S/N/V/D/SOA ROS ROS o/w neg Vital Sign Vital Signs Vital Signs Date Time Temp Pulse Resp B/P (MAP) Pulse Ox O2 Delivery O2 Flow Rate FiO2 01/18/20 09:50 74 143/75 01/18/20 07:00 98.1 16 92 Room Air 98.1 01/17/20 15:04 Physical Exam PHYSICAL EXAM CONSTITUTIONAL: He is on side of bed. He is in no acute distress. He is cooperative. HEENT: Pupils equal and reactive. He has normal conjunctivae. Oral cavity, pharynx is clear. No signs of breakdown. NECK: Supple with good range of motion, no JVD. LUNGS: Clear to auscultation, no wheeze. HEART: S1, S2. ABDOMEN: Obese, soft, nontender, nondistended, positive bowel sounds. EXTREMITIES: Without clubbing, cyanosis. He has a 2 + lower extremity edema bilaterally. He has less scaling skin. There is min erythema. There is no warmth. It goes from the tops of his ankles up to his groin area. His feet are spared. He does have some mild tinea associated with his toes. SKIN: Warm to touch without signs of rash, otherwise. GENITOURINARY: Without gross erythema or warmth. It is nontender. NEUROLOGIC: He is nonfocal. PSYCHIATRIC: Affect is appropriate Labs Lab Laboratory Tests Test 01/17/20 11:46 01/17/20 16:00 01/17/20 20:07 01/18/20 03:45 Glucose (Fingerstick) 91 mg/dL (70-99) 115 mg/dL (70-99) 204 mg/dL (70-99) White Blood Count 7.3 x10^3/uL (4.0-11.0) Red Blood Count 4.42 x10^6/uL (4.30-5.70) Hemoglobin 12.4 g/dL (13.0-17.5) Hematocrit 36.5 % (39.0-53.0) Mean Corpuscular Volume 83 fL (79-100) Mean Corpuscular Hemoglobin 28 pg (25-35) Mean Corpuscular Hemoglobin Concent 34 g/dL (31-37) Red Cell Distribution Width 15.3 % (11.5-14.5) Platelet Count 193 x10^3/uL (140-400) Neutrophils (%) (Auto) 43 % (31-73) Lymphocytes (%) (Auto) 21 % (24-48) Monocytes (%) (Auto) 11 % (0-9) Eosinophils (%) (Auto) 25 % (0-3) Basophils (%) (Auto) 1 % (0-3) Neutrophils # (Auto) 3.1 x10^3/uL (1.8-7.7) Lymphocytes # (Auto) 1.5 x10^3/uL (1.0-4.8) Monocytes # (Auto) 0.8 x10^3/uL (0.0-1.1) Eosinophils # (Auto) 1.8 x10^3/uL (0.0-0.7) Basophils # (Auto) 0.1 x10^3/uL (0.0-0.2) Segmented Neutrophils % 41 % (35-66) Lymphocytes % 20 % (24-48) Monocytes % 7 % (0-10) Eosinophils % 30 % (0-5) Basophils % 2 % (0-3) Nucleated Red Blood Cells 1 Platelet Estimate Adequate (ADEQUATE) Large Platelets Occ Polychromasia Slight Anisocytosis Slight Tear Drop Cells Occ Test 01/18/20 08:07 Glucose (Fingerstick) 113 mg/dL (70-99) Micro Microbiology 01/16/20 Blood Culture - Preliminary, Resulted NO GROWTH AFTER 1 DAY Objective Assessment Bilateral LE lymphedema EF 60 % 11/07/2018. Neg cardiac cath 11/10/2018 Vladimir LE cellulitis Eosinophila Tinea DM H/o Leukemia Plan Plan of Care Cont Zosyn - Unasyn still limited Given Eosinophilia - dosed Permethrin Add Fluconazole F/u labs and cults Lymphedema per primary F/u Eosinophilia JENNIFER CODY MD Jan 18, 2020 10:08
[2020-01-18 11:00] VITALS: BP 162/66
[2020-01-18 13:28] LABS: CALCIUM 8.4 mg/dL (8.5-10.1); CREATININE 1.2 mg/dL (0.7-1.3); GFR 74.5; POTASSIUM 3.4 mmol/L (3.5-5.1)
[2020-01-18 15:00] VITALS: BP 168/66
[2020-01-18 19:00] VITALS: BP 184/83
[2020-01-18] MEDS: INSULIN GLARGINE SYRINGE. SQ SCH (20:52)
[2020-01-18 23:00] VITALS: BP 196/85
[2020-01-18] MEDS ORDERED: hydrALAZINE 20 MG/ML VIAL. IVP PRN (23:00)
[2020-01-19] VITALS: BP 144/55
[2020-01-19 03:00] VITALS: BP_SYST 159; BP_SYST 196; BP_DIAS 85
[2020-01-19 05:03] LABS: BASO # 0.1 x10^3/uL (0.0-0.2); BASO % 1 % (0-3); EOS # 1.8 x10^3/uL (0.0-0.7); EOS % 23 % (0-3); HEMATOCRIT 37.6 % (39.0-53.0); HEMOGLOBIN 12.7 g/dL (13.0-17.5); LYMPH # 1.3 x10^3/uL (1.0-4.8); LYMPH % 17 % (24-48); MEAN CORPUSCULAR HEMOGLOBIN 28 pg (25-35); MEAN CORPUSCULAR HGB CONC 34 g/dL (31-37); MEAN CORPUSCULAR VOLUME 83 fL (79-100); MONO # 0.7 x10^3/uL (0.0-1.1); MONO % 8 % (0-9); NEUT % 51 % (31-73); PLATELET COUNT 218 x10^3/uL (140-400); RED BLOOD COUNT 4.54 x10^6/uL (4.30-5.70); RED CELL DISTRIBUTION WIDTH 15.5 % (11.5-14.5); WHITE BLOOD COUNT 7.8 x10^3/uL (4.0-11.0)
[2020-01-19] MEDS: PIPERACILLIN/TAZOBACTAM 3.375 GM in IV NORMAL SALINE 50ML 50 ML IV SCH (05:41)
[2020-01-19 07:00] VITALS: BP 169/79
[2020-01-19] MEDS: INSULIN LISPRO 300 UNITS/3 ML VIAL. SQ SCH ×2 (07:48→11:58)
--- NOTE | 2020-01-19 07:57 | PDOC ---
PROGRESS NOTES Chief Complaint Chief Complaint A/P: Bilateral leg cellulitis Hypokalemia Coronary artery disease Hypertension Hyperlipidemia Diabetes History of Present Illness History of Present Illness Mr Méndez is a 59 yo M w/ PMHx coronary artery disease, hypertension, hyperlipidemia, diabetes, leukemia, who is admitted for lower extremity cellulitis failing outpatient therapy. Started on IV antibiotics and consulted Infectious Disease. 01/17: Right leg a bit better, still pruritic. Started on permethrin with some improvement. No CP or SOB. No fevers. Itching resolved. Ok with augmentin and fluconazole on d/c per ID. Vitals Vitals Vital Signs Date Time Temp Pulse Resp B/P (MAP) Pulse Ox O2 Delivery O2 Flow Rate FiO2 01/19/20 07:00 98.0 76 16 169/79 (109) 97 Room Air 98.0 Physical Exam Physical Exam CONSTITUTIONAL: He is on side of bed. He is in no acute distress. He is cooperative. HEENT: Pupils equal and reactive. He has normal conjunctivae. Oral cavity, pharynx is clear. No signs of breakdown. NECK: Supple with good range of motion, no JVD. LUNGS: Clear to auscultation, no wheeze. HEART: S1, S2. ABDOMEN: Obese, soft, nontender, nondistended, positive bowel sounds. EXTREMITIES: Without clubbing, cyanosis. He has a 2 + lower extremity edema bilaterally. He has less scaling skin. There is min erythema. There is no warmth. It goes from the tops of his ankles up to his groin area. His feet are spared. He does have some mild tinea associated with his toes. SKIN: Warm to touch without signs of rash, otherwise. GENITOURINARY: Without gross erythema or warmth. It is nontender. NEUROLOGIC: He is nonfocal. PSYCHIATRIC: Affect is appropriate General: Alert, Oriented X3, Cooperative Heart: Regular rate, Normal S1, Normal S2 Lungs: Clear Abdomen: Normal bowel sounds, Soft Extremities: Other (Bilateral stasis dermatitis) Skin: Other (Right lateral malleolus abrasion. Blistering of bilateral ankle left foot. Stasis dermatitis. 2+ edema) Labs LABS Laboratory Tests Test 01/18/20 08:07 01/18/20 12:01 01/18/20 17:01 01/18/20 20:20 Glucose (Fingerstick) 113 mg/dL (70-99) 84 mg/dL (70-99) 162 mg/dL (70-99) 208 mg/dL (70-99) Test 01/19/20 04:20 01/19/20 07:46 White Blood Count 7.8 x10^3/uL (4.0-11.0) Red Blood Count 4.54 x10^6/uL (4.30-5.70) Hemoglobin 12.7 g/dL (13.0-17.5) Hematocrit 37.6 % (39.0-53.0) Mean Corpuscular Volume 83 fL (79-100) Mean Corpuscular Hemoglobin 28 pg (25-35) Mean Corpuscular Hemoglobin Concent 34 g/dL (31-37) Red Cell Distribution Width 15.5 % (11.5-14.5) Platelet Count 218 x10^3/uL (140-400) Neutrophils (%) (Auto) 51 % (31-73) Lymphocytes (%) (Auto) 17 % (24-48) Monocytes (%) (Auto) 8 % (0-9) Eosinophils (%) (Auto) 23 % (0-3) Basophils (%) (Auto) 1 % (0-3) Neutrophils # (Auto) 4.0 x10^3/uL (1.8-7.7) Lymphocytes # (Auto) 1.3 x10^3/uL (1.0-4.8) Monocytes # (Auto) 0.7 x10^3/uL (0.0-1.1) Eosinophils # (Auto) 1.8 x10^3/uL (0.0-0.7) Basophils # (Auto) 0.1 x10^3/uL (0.0-0.2) Glucose (Fingerstick) 59 mg/dL (70-99) Assessment and Plan Assessmemt and Plan Problems Medical Problems: (1) Bilateral lower leg cellulitis Status: Acute Comment Review of Relevant I have reviewed the following items deborah (where applicable) has been applied. Labs Laboratory Tests Test 01/17/20 11:46 01/17/20 16:00 01/17/20 20:07 01/18/20 03:45 Glucose (Fingerstick) 91 mg/dL (70-99) 115 mg/dL (70-99) 204 mg/dL (70-99) White Blood Count 7.3 x10^3/uL (4.0-11.0) Red Blood Count 4.42 x10^6/uL (4.30-5.70) Hemoglobin 12.4 g/dL (13.0-17.5) Hematocrit 36.5 % (39.0-53.0) Mean Corpuscular Volume 83 fL (79-100) Mean Corpuscular Hemoglobin 28 pg (25-35) Mean Corpuscular Hemoglobin Concent 34 g/dL (31-37) Red Cell Distribution Width 15.3 % (11.5-14.5) Platelet Count 193 x10^3/uL (140-400) Neutrophils (%) (Auto) 43 % (31-73) Lymphocytes (%) (Auto) 21 % (24-48) Monocytes (%) (Auto) 11 % (0-9) Eosinophils (%) (Auto) 25 % (0-3) Basophils (%) (Auto) 1 % (0-3) Neutrophils # (Auto) 3.1 x10^3/uL (1.8-7.7) Lymphocytes # (Auto) 1.5 x10^3/uL (1.0-4.8) Monocytes # (Auto) 0.8 x10^3/uL (0.0-1.1) Eosinophils # (Auto) 1.8 x10^3/uL (0.0-0.7) Basophils # (Auto) 0.1 x10^3/uL (0.0-0.2) Segmented Neutrophils % 41 % (35-66) Lymphocytes % 20 % (24-48) Monocytes % 7 % (0-10) Eosinophils % 30 % (0-5) Basophils % 2 % (0-3) Nucleated Red Blood Cells 1 Platelet Estimate Adequate (ADEQUATE) Large Platelets Occ Polychromasia Slight Anisocytosis Slight Tear Drop Cells Occ Sodium Level 144 mmol/L (136-145) Potassium Level 3.4 mmol/L (3.5-5.1) Chloride Level 108 mmol/L (98-107) Carbon Dioxide Level 28 mmol/L (21-32) Anion Gap 8 (6-14) Blood Urea Nitrogen 18 mg/dL (8-26) Creatinine 1.2 mg/dL (0.7-1.3) Estimated GFR (Cockcroft-Gault) 74.5 Glucose Level 58 mg/dL (70-99) Calcium Level 8.4 mg/dL (8.5-10.1) Test 01/18/20 08:07 01/18/20 12:01 01/18/20 17:01 01/18/20 20:20 Glucose (Fingerstick) 113 mg/dL (70-99) 84 mg/dL (70-99) 162 mg/dL (70-99) 208 mg/dL (70-99) Test 01/19/20 04:20 01/19/20 07:46 White Blood Count 7.8 x10^3/uL (4.0-11.0) Red Blood Count 4.54 x10^6/uL (4.30-5.70) Hemoglobin 12.7 g/dL (13.0-17.5) Hematocrit 37.6 % (39.0-53.0) Mean Corpuscular Volume 83 fL (79-100) Mean Corpuscular Hemoglobin 28 pg (25-35) Mean Corpuscular Hemoglobin Concent 34 g/dL (31-37) Red Cell Distribution Width 15.5 % (11.5-14.5) Platelet Count 218 x10^3/uL (140-400) Neutrophils (%) (Auto) 51 % (31-73) Lymphocytes (%) (Auto) 17 % (24-48) Monocytes (%) (Auto) 8 % (0-9) Eosinophils (%) (Auto) 23 % (0-3) Basophils (%) (Auto) 1 % (0-3) Neutrophils # (Auto) 4.0 x10^3/uL (1.8-7.7) Lymphocytes # (Auto) 1.3 x10^3/uL (1.0-4.8) Monocytes # (Auto) 0.7 x10^3/uL (0.0-1.1) Eosinophils # (Auto) 1.8 x10^3/uL (0.0-0.7) Basophils # (Auto) 0.1 x10^3/uL (0.0-0.2) Glucose (Fingerstick) 59 mg/dL (70-99) Laboratory Tests Test 01/18/20 08:07 01/18/20 12:01 01/18/20 17:01 01/18/20 20:20 Glucose (Fingerstick) 113 mg/dL (70-99) 84 mg/dL (70-99) 162 mg/dL (70-99) 208 mg/dL (70-99) Test 01/19/20 04:20 01/19/20 07:46 White Blood Count 7.8 x10^3/uL (4.0-11.0) Red Blood Count 4.54 x10^6/uL (4.30-5.70) Hemoglobin 12.7 g/dL (13.0-17.5) Hematocrit 37.6 % (39.0-53.0) Mean Corpuscular Volume 83 fL (79-100) Mean Corpuscular Hemoglobin 28 pg (25-35) Mean Corpuscular Hemoglobin Concent 34 g/dL (31-37) Red Cell Distribution Width 15.5 % (11.5-14.5) Platelet Count 218 x10^3/uL (140-400) Neutrophils (%) (Auto) 51 % (31-73) Lymphocytes (%) (Auto) 17 % (24-48) Monocytes (%) (Auto) 8 % (0-9) Eosinophils (%) (Auto) 23 % (0-3) Basophils (%) (Auto) 1 % (0-3) Neutrophils # (Auto) 4.0 x10^3/uL (1.8-7.7) Lymphocytes # (Auto) 1.3 x10^3/uL (1.0-4.8) Monocytes # (Auto) 0.7 x10^3/uL (0.0-1.1) Eosinophils # (Auto) 1.8 x10^3/uL (0.0-0.7) Basophils # (Auto) 0.1 x10^3/uL (0.0-0.2) Glucose (Fingerstick) 59 mg/dL (70-99) Microbiology 01/16/20 Blood Culture - Preliminary, Resulted NO GROWTH AFTER 2 DAYS Medications Current Medications Diphenhydramine HCl (Benadryl) 25 mg 1X ONCE IVP Last administered on 01/16/20at 13:38; Start 01/16/20 at 13:15; Stop 01/16/20 at 13:21; Status DC Fentanyl Citrate (Fentanyl 2ml Vial) 50 mcg 1X STAT IV ; Start 01/16/20 at 13:12; Stop 01/16/20 at 13:21; Status DC Cefazolin Sodium 1 gm/Dextrose 50 ml @ 100 mls/hr Q8HRS STAT IV ; Start 01/16/20 at 13:12; Stop 01/16/20 at 13:41; Status UNV Cefazolin Sodium (Ancef) 1 gm Q8HRS STAT IVP Last administered on 01/16/20at 13:38; Start 01/16/20 at 13:22; Stop 01/16/20 at 13:23; Status DC Ondansetron HCl (Zofran) 4 mg PRN Q8HRS PRN IV NAUSEA/VOMITING; Start 01/16/20 at 15:30; Stop 01/17/20 at 15:29; Status DC Acetaminophen/ Hydrocodone Bitart (Lortab 5/325) 1 tab PRN Q4HRS PRN PO MODERATE PAIN, SEVERE PAIN Last administered on 01/17/20at 08:44; Start 01/16/20 at 19:15 Ceftriaxone Sodium (Rocephin) 1 gm Q24H IVP Last administered on 01/16/20at 21:15; Start 01/16/20 at 21:00; Stop 01/17/20 at 13:19; Status DC Diphenhydramine HCl (Benadryl) 25 mg PRN Q6HRS PRN PO ITCHING; Start 01/16/20 at 19:15 Acetaminophen (Tylenol) 650 mg PRN Q6HRS PRN PO MILD PAIN 1-3 Last administered on 01/18/20at 13:24; Start 01/16/20 at 19:15 Insulin Human Lispro (HumaLOG) 0-5 UNITS TIDWMEALS SQ ; Start 01/17/20 at 08:00 Dextrose (Dextrose 50%-Water Syringe) 12.5 gm PRN Q15MIN PRN IV SEE COMMENTS; Start 01/16/20 at 19:15 Aspirin (Children'S Aspirin) 81 mg DAILY PO Last administered on 01/18/20at 09:50; Start 01/17/20 at 09:00 EZETIMIBE (Zetia) 10 mg DAILY PO Last administered on 01/18/20at 09:49; Start 01/17/20 at 09:00 Insulin Glargine (Lantus Syringe) 100 unit HS SQ Last administered on 01/18/20 20:52; Start 01/16/20 at 21:00 Metformin HCl (Glucophage) 500 mg QID PO ; Start 01/16/20 at 21:00; Stop 01/16/20 at 21:56; Status DC Amlodipine Besylate (Norvasc) 10 mg DAILY PO Last administered on 01/18/20 09:49; Start 01/17/20 at 09:00 Hydrochlorothiazide (Hydrodiuril) 25 mg DAILY PO Last administered on 01/18/20 09:50; Start 01/17/20 at 09:00 Metoprolol Tartrate (Lopressor) 100 mg BID PO Last administered on 01/18/20 20 :51; Start 01/16/20 at 21:00 Metformin HCl (Glucophage) 1,000 mg BIDWMEALS PO Last administered on 01/17/20at 08:37; Start 01/16/20 at 22:00; Stop 01/17/20 at 09:15; Status DC Metformin HCl (Glucophage) 500 mg STK-MED ONCE PO ; Start 01/16/20 at 21:03; Stop 01/16/20 at 21:56; Status DC Metformin HCl (Glucophage) 500 mg STK-MED ONCE PO ; Start 01/16/20 at 21:13; Stop 01/16/20 at 21:56; Status DC Lactobacillus Rhamnosus (Culturelle) 1 cap BID PO Last administered on 01/18/20 20:49; Start 01/17/20 at 21:00 Miconazole Nitrate (Monistat-Derm) 1 oly BID TP Last administered on 01/18/20 20:53; Start 01/17/20 at 11:30 Fluconazole (Diflucan) 200 mg DAILY PO Last administered on 01/18/20 09:50; Start 01/17/20 at 13:00 Piperacillin Sod/ Tazobactam Sod 3.375 gm/Sodium Chloride 50 ml @ 100 mls/hr Q6HRS IV Last administered on 01/19/20 05:41; Start 01/17/20 at 13:00 Permethrin (Elimite) 1 oly 1X ONCE TP Last administered on 01/17/20 14:07; Start 01/17/20 at 13:00; Stop 01/17/20 at 13:20; Status DC Hydralazine HCl (Apresoline Inj) 10 mg PRN Q4HRS PRN IVP ELEVATED BP, SEE COMMENTS Last administered on 01/18/20at 23:12; Start 01/18/20 at 23:00 Active Scripts Active Tamiflu (Oseltamivir Phosphate) 75 Mg Capsule 1 Cap PO BID Klor-Con 10 (Potassium Chloride) 10 Meq Tablet.er 1 Tab PO DAILY 30 Days Lasix (Furosemide) 20 Mg Tablet 1 Tab PO DAILY 30 Days Keflex (Cephalexin) 500 Mg Capsule 1 Cap PO Q8HRS Orphenadrine Citrate 100 Mg Tablet.er 100 Mg PO BID PRN Naproxen 500 Mg Tablet 1 Tab PO BID PRN Reported Metformin Hcl 1,000 Mg Tablet 1,000 Mg PO BID Lasix (Furosemide) 20 Mg Tablet 1 Tab PO PRN PRN 30 Days Lantus (Insulin Glargine,Hum.rec.anlog) 100 Unit/1 Ml Vial 100 Unit SQ HS Aspirin 81 Mg Tab.chew 1 Tab PO DAILY Hydrochlorothiazide Tablet (Hydrochlorothiazide) 12.5 Mg Tablet 2 Tab PO DAILY Repaglinide 1 Mg Tablet 1 Mg PO TID Zetia (Ezetimibe) 10 Mg Tablet 1 Tab PO DAILY Metoprolol Tartrate 100 Mg Tablet 1 Tab PO BID Amlodipine-Benazepril 10-20 Mg (Amlodipine Besylate/Benazepril) 1 Each Capsule 1 Cap PO DAILY Vitals/I & O Vital Sign - Last 24 Hours 01/18/20 01/18/20 01/18/20 01/18/20 08:00 09:49 09:50 11:00 Temp 97.8 97.8 Pulse 74 74 58 Resp 16 B/P (MAP) 143/75 143/75 162/66 (98) Pulse Ox 96 O2 Delivery Room Air Room Air 01/18/20 01/18/20 01/18/20 01/18/20 15:00 19:00 20:20 20:51 Temp 98.2 98.1 98.2 98.1 Pulse 74 74 76 Resp 18 18 B/P (MAP) 168/66 (100) 184/83 (116) 184/83 Pulse Ox 96 98 O2 Delivery Room Air Room Air Room Air 01/18/20 01/18/20 01/19/2001/18/20 23:00 23:12 00:00 03:00 Temp 98.7 98.7 98.7 98.7 Pulse 74 76 74 77 Resp 18 18 B/P (MAP) 196/85 (122) 196/85 144/55 (84) 159/85 (109) Pulse Ox 98 98 O2 Delivery Room Air Room Air 01/19/20 07:00 Temp 98.0 98.0 Pulse 76 Resp 16 B/P (MAP) 169/79 (109) Pulse Ox 97 O2 Delivery Room Air AIME CORONA MD Jan 19, 2020 07:57
[2020-01-19] MEDS: METOPROLOL TART IMMED RELEASE 50 MG TABLET. PO SCH (08:27)
[2020-01-19] MEDS: LACTOBACILLUS RHAMNOSUS GG 1 CAPSULE. PO SCH (08:28)
[2020-01-19] MEDS: FLUCONAZOLE 100 MG TABLET. PO SCH (08:28)
[2020-01-19] MEDS: hydroCHLOROthiazide 25 MG TABLET PO SCH (08:28)
[2020-01-19] MEDS: EZETIMIBE 10 MG TABLET. PO SCH (08:28)
[2020-01-19] MEDS: amLODIPine BESYLATE 10 MG TABLET PO SCH (08:28)
[2020-01-19] MEDS: ASPIRIN CHEWABLE 81 MG TABLET. PO SCH (08:28)
[2020-01-19] MEDS: MICONAZOLE NITRATE 2% TOPICAL CREAM 28GM TUBE. TP SCH (08:29)
--- NOTE | 2020-01-19 10:23 | PDOC ---
Infectious Disease Note Subjective Subjective Feels better yet. Itch almost resolved No F/C/S/N/V/D/SOA Vital Sign Vital Signs Vital Signs Date Time Temp Pulse Resp B/P (MAP) Pulse Ox O2 Delivery O2 Flow Rate FiO2 01/19/20 08:28 76 169/79 01/19/20 07:53 Room Air 01/19/20 07:00 98.0 16 97 98.0 Physical Exam PHYSICAL EXAM CONSTITUTIONAL: He is in a chair. He is in no acute distress. He is cooperative. HEENT: Pupils equal and reactive. He has normal conjunctivae. Oral cavity, pharynx is clear. No signs of breakdown. NECK: Supple with good range of motion, no JVD. LUNGS: Clear to auscultation, no wheeze. HEART: S1, S2. ABDOMEN: Obese, soft, nontender, nondistended, positive bowel sounds. EXTREMITIES: Without clubbing, cyanosis. He has a 1- 2 + lower extremity edema bilaterally. He has less scaling skin. There is min erythema. There is no warmth. It goes from the tops of his ankles up to his groin area. His feet are spared. He does have some mild tinea associated with his toes. SKIN: Warm to touch without signs of rash, otherwise. GENITOURINARY: Without gross erythema or warmth. It is nontender. NEUROLOGIC: He is nonfocal. PSYCHIATRIC: Affect is appropriate Labs Lab Laboratory Tests Test 01/18/20 12:01 01/18/20 17:01 01/18/20 20:20 01/19/20 04:20 Glucose (Fingerstick) 84 mg/dL (70-99) 162 mg/dL (70-99) 208 mg/dL (70-99) White Blood Count 7.8 x10^3/uL (4.0-11.0) Red Blood Count 4.54 x10^6/uL (4.30-5.70) Hemoglobin 12.7 g/dL (13.0-17.5) Hematocrit 37.6 % (39.0-53.0) Mean Corpuscular Volume 83 fL (79-100) Mean Corpuscular Hemoglobin 28 pg (25-35) Mean Corpuscular Hemoglobin Concent 34 g/dL (31-37) Red Cell Distribution Width 15.5 % (11.5-14.5) Platelet Count 218 x10^3/uL (140-400) Neutrophils (%) (Auto) 51 % (31-73) Lymphocytes (%) (Auto) 17 % (24-48) Monocytes (%) (Auto) 8 % (0-9) Eosinophils (%) (Auto) 23 % (0-3) Basophils (%) (Auto) 1 % (0-3) Neutrophils # (Auto) 4.0 x10^3/uL (1.8-7.7) Lymphocytes # (Auto) 1.3 x10^3/uL (1.0-4.8) Monocytes # (Auto) 0.7 x10^3/uL (0.0-1.1) Eosinophils # (Auto) 1.8 x10^3/uL (0.0-0.7) Basophils # (Auto) 0.1 x10^3/uL (0.0-0.2) Test 01/19/20 07:46 01/19/20 08:27 Glucose (Fingerstick) 59 mg/dL (70-99) 128 mg/dL (70-99) Micro Microbiology 01/16/20 Blood Culture - Preliminary, Resulted NO GROWTH AFTER 1 DAY Objective Assessment Bilateral LE lymphedema EF 60 % 11/07/2018. Neg cardiac cath 11/10/2018 Vladimir LE cellulitis Eosinophila - slight improvement Tinea DM H/o Leukemia Plan Plan of Care Discont Zosyn begin augmentin - 875 mg po BID Given Eosinophilia - dosed Permethrin Home on Augmentin 875 mg po BID and Fluconazole for 7 more days Needs compression F/u with his Primary will need Eosinophilia followed up can f/u in ID office if Dr. Aguilera needs D/w nursing JENNIFER CODY MD Jan 19, 2020 10:23
[2020-01-19 10:29] LABS: CALCIUM 8.7 mg/dL (8.5-10.1); CREATININE 1.3 mg/dL (0.7-1.3); GFR 67.9
[2020-01-19 11:00] VITALS: BP 167/77
[2020-01-19] MEDS ORDERED: AMOXICILLIN/K CLAV 875/125MG TABLET. PO SCH (11:30)
--- NOTE | 2020-01-19 11:52 | NUR ---
SW following. Discussed with RN, pt from home. RN advised pt discharging home with no SW needs and PO abx. Possible discharge home today with self care.
[2020-01-19] MEDS ORDERED: Fluconazole PO (11:57)
[2020-01-19] MEDS ORDERED: AMOX1TAB11 PO (11:57)
--- NOTE | 2020-01-19 12:01 | PDOC3 ---
Discharge Summary Visit Information Date of Admission: Jan 16, 2020 Date of Discharge: Jan 19, 2020 Admitting Diagnosis: Bilateral LE cellulitis Final Diagnosis Problems Medical Problems: (1) Bilateral lower leg cellulitis Status: Acute Brief Hospital Course Allergies Allergies Coded Allergies Type Severity Reaction Last Updated Verified No Known Drug Allergies 05/11/17 No Vital Signs Vital Signs Date Time Temp Pulse Resp B/P (MAP) Pulse Ox O2 Delivery O2 Flow Rate FiO2 01/19/20 08:28 76 169/79 01/19/20 07:53 Room Air 01/19/20 07:00 98.0 16 97 98.0 Lab Results Laboratory Tests Test 01/17/20 16:00 01/17/20 20:07 01/18/20 03:45 01/18/20 08:07 Glucose (Fingerstick) 115 mg/dL (70-99) 204 mg/dL (70-99) 113 mg/dL (70-99) White Blood Count 7.3 x10^3/uL (4.0-11.0) Red Blood Count 4.42 x10^6/uL (4.30-5.70) Hemoglobin 12.4 g/dL (13.0-17.5) Hematocrit 36.5 % (39.0-53.0) Mean Corpuscular Volume 83 fL (79-100) Mean Corpuscular Hemoglobin 28 pg (25-35) Mean Corpuscular Hemoglobin Concent 34 g/dL (31-37) Red Cell Distribution Width 15.3 % (11.5-14.5) Platelet Count 193 x10^3/uL (140-400) Neutrophils (%) (Auto) 43 % (31-73) Lymphocytes (%) (Auto) 21 % (24-48) Monocytes (%) (Auto) 11 % (0-9) Eosinophils (%) (Auto) 25 % (0-3) Basophils (%) (Auto) 1 % (0-3) Neutrophils # (Auto) 3.1 x10^3/uL (1.8-7.7) Lymphocytes # (Auto) 1.5 x10^3/uL (1.0-4.8) Monocytes # (Auto) 0.8 x10^3/uL (0.0-1.1) Eosinophils # (Auto) 1.8 x10^3/uL (0.0-0.7) Basophils # (Auto) 0.1 x10^3/uL (0.0-0.2) Segmented Neutrophils % 41 % (35-66) Lymphocytes % 20 % (24-48) Monocytes % 7 % (0-10) Eosinophils % 30 % (0-5) Basophils % 2 % (0-3) Nucleated Red Blood Cells 1 Platelet Estimate Adequate (ADEQUATE) Large Platelets Occ Polychromasia Slight Anisocytosis Slight Tear Drop Cells Occ Sodium Level 144 mmol/L (136-145) Potassium Level 3.4 mmol/L (3.5-5.1) Chloride Level 108 mmol/L (98-107) Carbon Dioxide Level 28 mmol/L (21-32) Anion Gap 8 (6-14) Blood Urea Nitrogen 18 mg/dL (8-26) Creatinine 1.2 mg/dL (0.7-1.3) Estimated GFR (Cockcroft-Gault) 74.5 Glucose Level 58 mg/dL (70-99) Calcium Level 8.4 mg/dL (8.5-10.1) Test 01/18/20 12:01 01/18/20 17:01 01/18/20 20:20 01/19/20 04:20 Glucose (Fingerstick) 84 mg/dL (70-99) 162 mg/dL (70-99) 208 mg/dL (70-99) White Blood Count 7.8 x10^3/uL (4.0-11.0) Red Blood Count 4.54 x10^6/uL (4.30-5.70) Hemoglobin 12.7 g/dL (13.0-17.5) Hematocrit 37.6 % (39.0-53.0) Mean Corpuscular Volume 83 fL (79-100) Mean Corpuscular Hemoglobin 28 pg (25-35) Mean Corpuscular Hemoglobin Concent 34 g/dL (31-37) Red Cell Distribution Width 15.5 % (11.5-14.5) Platelet Count 218 x10^3/uL (140-400) Neutrophils (%) (Auto) 51 % (31-73) Lymphocytes (%) (Auto) 17 % (24-48) Monocytes (%) (Auto) 8 % (0-9) Eosinophils (%) (Auto) 23 % (0-3) Basophils (%) (Auto) 1 % (0-3) Neutrophils # (Auto) 4.0 x10^3/uL (1.8-7.7) Lymphocytes # (Auto) 1.3 x10^3/uL (1.0-4.8) Monocytes # (Auto) 0.7 x10^3/uL (0.0-1.1) Eosinophils # (Auto) 1.8 x10^3/uL (0.0-0.7) Basophils # (Auto) 0.1 x10^3/uL (0.0-0.2) Sodium Level 144 mmol/L (136-145) Potassium Level 4.0 mmol/L (3.5-5.1) Chloride Level 106 mmol/L (98-107) Carbon Dioxide Level 26 mmol/L (21-32) Anion Gap 12 (6-14) Blood Urea Nitrogen 20 mg/dL (8-26) Creatinine 1.3 mg/dL (0.7-1.3) Estimated GFR (Cockcroft-Gault) 67.9 Glucose Level 146 mg/dL (70-99) Calcium Level 8.7 mg/dL (8.5-10.1) Test 01/19/20 07:46 01/19/20 08:27 01/19/20 11:50 Glucose (Fingerstick) 59 mg/dL (70-99) 128 mg/dL (70-99) 121 mg/dL (70-99) Laboratory Tests Test 01/18/20 12:01 01/18/20 17:01 01/18/20 20:20 01/19/20 04:20 Glucose (Fingerstick) 84 mg/dL (70-99) 162 mg/dL (70-99) 208 mg/dL (70-99) White Blood Count 7.8 x10^3/uL (4.0-11.0) Red Blood Count 4.54 x10^6/uL (4.30-5.70) Hemoglobin 12.7 g/dL (13.0-17.5) Hematocrit 37.6 % (39.0-53.0) Mean Corpuscular Volume 83 fL (79-100) Mean Corpuscular Hemoglobin 28 pg (25-35) Mean Corpuscular Hemoglobin Concent 34 g/dL (31-37) Red Cell Distribution Width 15.5 % (11.5-14.5) Platelet Count 218 x10^3/uL (140-400) Neutrophils (%) (Auto) 51 % (31-73) Lymphocytes (%) (Auto) 17 % (24-48) Monocytes (%) (Auto) 8 % (0-9) Eosinophils (%) (Auto) 23 % (0-3) Basophils (%) (Auto) 1 % (0-3) Neutrophils # (Auto) 4.0 x10^3/uL (1.8-7.7) Lymphocytes # (Auto) 1.3 x10^3/uL (1.0-4.8) Monocytes # (Auto) 0.7 x10^3/uL (0.0-1.1) Eosinophils # (Auto) 1.8 x10^3/uL (0.0-0.7) Basophils # (Auto) 0.1 x10^3/uL (0.0-0.2) Sodium Level 144 mmol/L (136-145) Potassium Level 4.0 mmol/L (3.5-5.1) Chloride Level 106 mmol/L (98-107) Carbon Dioxide Level 26 mmol/L (21-32) Anion Gap 12 (6-14) Blood Urea Nitrogen 20 mg/dL (8-26) Creatinine 1.3 mg/dL (0.7-1.3) Estimated GFR (Cockcroft-Gault) 67.9 Glucose Level 146 mg/dL (70-99) Calcium Level 8.7 mg/dL (8.5-10.1) Test 01/19/20 07:46 01/19/20 08:27 01/19/20 11:50 Glucose (Fingerstick) 59 mg/dL (70-99) 128 mg/dL (70-99) 121 mg/dL (70-99) Brief Hospital Course Mr Méndez is a 59 yo M w/ PMHx coronary artery disease, hypertension, hyperlipidemia, diabetes, leukemia, who is admitted for lower extremity cellulitis failing outpatient therapy. Started on IV antibiotics and consulted Infectious Disease. 01/17: Right leg a bit better, still pruritic. Started on permethrin with some improvement. No CP or SOB. No fevers. Itching resolved. Ok with augmentin and fluconazole on d/c per ID. Problem list: Bilateral leg cellulitis Hypokalemia Coronary artery disease Hypertension Hyperlipidemia Diabetes Greater than 30 minutes spent on d/c Discharge Information Condition at Discharge: Improved Follow Up: Weeks (1) Disposition/Orders: D/C to Home Scheduled Amlodipine Besylate/Benazepril (Amlodipine-Benazepril 10-20 Mg) 1 Each Capsule, 1 CAP PO DAILY, #30 Ref 5 (Reported) Entered as Reported by: SURAJ KING on 11/06/17 1506 Last Action: Converted on 01/16/201929 by LYRIC MAGALLANES RN Amoxicillin/Potassium Clav (Amox Tr-K Clv 875-125 Mg Tab) 1 Each Tablet, 1 TAB PO BID for Cellulitis for 7 Days, #14 Prescribed by: AIME CORONA MD on 01/19/20 1157 Aspirin (Aspirin) 81 Mg Tab.chew, 1 TAB PO DAILY, #30 Ref 3 (Reported) Entered as Reported by: SURAJ KING on 11/06/17 1532 Last Action: Continued on 01/16/201929 by LYRIC MAGALLANES RN Ezetimibe (Zetia) 10 Mg Tablet, 1 TAB PO DAILY, #30 Ref 5 (Reported) Entered as Reported by: SURAJ KING on 11/06/17 1506 Last Action: Continued on 01/16/201929 by LYRIC MAGALLANES RN Insulin Glargine,Hum.rec.anlog (Lantus) 100 Unit/1 Ml Vial, 100 UNIT SQ HS for dm, (Reported) Entered as Reported by: KIERA DUNNE on 01/16/201922 Last Action: Continued on 01/16/201929 by LYRIC MAGALLANES RN Metformin Hcl (Metformin Hcl) 1,000 Mg Tablet, 1,000 MG PO BID for ANTI- DIABETIC, Ref 0 (Reported) Entered as Reported by: KIERA DUNNE on 01/16/202106 Last Action: New Order on 01/16/202106 by KIEAR DUNNE Metoprolol Tartrate (Metoprolol Tartrate) 100 Mg Tablet, 1 TAB PO BID, #60 Ref 5 (Reported) Entered as Reported by: SURAJ KING on 11/06/17 1506 Last Action: Converted on 01/16/201929 by LYRIC MAGALLANES RN Potassium Chloride (Klor-Con 10) 10 Meq Tablet.er, 1 TAB PO DAILY for 30 Days, #30 Ref 0 Prescribed by: DAMASO MENDENHALL MD on 10/19/19752 Last Action: Reviewed on 01/16/201922 by KIERA DUNNE Repaglinide (Repaglinide) 1 Mg Tablet, 1 MG PO TID, (Reported) Entered as Reported by: SURAJ KING on 11/06/17 150 [Fluconazole] 100 MG TABLET, 200 MG PO DAILY for Cellulitis for 7 Days, #14 Prescribed by: AIME CORONA MD on 01/19/20 1157 Scheduled PRN Naproxen (Naproxen) 500 Mg Tablet, 1 TAB PO BID PRN for PAIN, #20 Ref 0 Prescribed by: LISA RAMON D.O. on 09/21/18 0204 Discontinued Medications Atorvastatin Calcium (Lipitor) 40 Mg Tablet, 1 TAB PO QHS for cholesterol , #90 Ref 1 (Reported) Entered as Reported by: RICHIE RAYA on 11/11/18 6639 Last Action: Discontinued on 01/16/201922 by KIERA DUNNE Cephalexin (Keflex) 500 Mg Capsule, 1 CAP PO Q8HRS, #21 Ref 0 Prescribed by: DAMASO MENDENHALL MD on 10/19/19752 Furosemide (Lasix) 20 Mg Tablet, 1 TAB PO DAILY for 30 Days, #30 Ref 0 Prescribed by: DAMASO MENDENHALL MD on 10/19/19752 Furosemide (Lasix) 20 Mg Tablet, 1 TAB PO PRN PRN for EDEMA for 30 Days, Ref 0 (Reported) Entered as Reported by: KIERA DUNNE on 01/16/201922 Last Action: New Order on 01/16/201922 by KIERA DUNNE Hydrochlorothiazide (Hydrochlorothiazide Tablet) 12.5 Mg Tablet, 2 TAB PO DAILY, #30 Ref 5 (Reported) Entered as Reported by: SURAJ KING on 11/06/171505 Last Action: Converted on 01/16/201929 by LYRIC MAGALLANES RN Insulin Detemir (Levemir) 100 Unit/1 Ml Vial, 90 UNIT SQ HS, (Reported) Entered as Reported by: SURAJ KING on 11/06/171505 Last Action: Discontinued on 01/16/201922 by KIERA DUNNE Metformin Hcl (Metformin Hcl) 500 Mg Tablet, 500 MG PO QID for ANTI-DIABETIC, Ref 0 (Reported) Entered as Reported by: SRUAJ KING on 11/06/17 1506 Last Action: Discontinued on 01/16/202106 by KIERA DUNNE Orphenadrine Citrate (Orphenadrine Citrate) 100 Mg Tablet.er, 100 MG PO BID PRN for MUSCLE PAIN, #14 Prescribed by: LISA RAMON D.O. on 09/21/18 0204 Oseltamivir Phosphate (Tamiflu) 75 Mg Capsule, 1 CAP PO BID, #10 Prescribed by: MICHELLE CUEVAS D.O. on 10/30/19 1613 AIME CORONA MD Jan 19, 2020 12:01
--- NOTE | 2020-01-19 12:25 | NUR ---
Discharge instructions and belongings reviewed with patient, verbalized understanding. Patient will be escorted out via wheelchair by Cat RN accompanied by patients .
== END 2020-01-19 13:44 | disposition home or self-care (01) | DRG 603 ==
LOC: ER 12:49 → 4 NORTH 15:54
PROVIDERS: ADMIT Internal Medicine; ATTEND Internal Medicine
DX: L03.115 Cellulitis of right lower limb (principal); L03.116 Cellulitis of left lower limb; B35.9 Dermatophytosis, unspecified; D72.1 Eosinophilia; E11.9 Type 2 diabetes mellitus without complications; E78.00 Pure hypercholesterolemia, unspecified; E78.5 Hyperlipidemia, unspecified; E87.6 Hypokalemia; I10 Essential (primary) hypertension; I25.10 Atherosclerotic heart disease of native coronary artery without angina pectoris; I89.0 Lymphedema, not elsewhere classified; Z85.6 Personal history of leukemia
CPT/HCPCS: 36415; 80048; 80053; 82962; 83605; 85007; 85025; 87040; 93970; 96374; 96375; J0360; J0690; J0696; J1200; J1815; J2543; 99285-25; G0378

== ENCOUNTER 2020-02-25 09:58 | Emergency (ER) | payer OTHER ==
[~2020-02-25] VITALS: Ht 175.3 cm; Wt 95.4 kg
[~2020-02-25 09:58] MED LIST changes: +AMOX1TAB11 PO; +Fluconazole PO; +INSU100V8 SQ; +METF10007 PO
[2020-02-25] MEDS ORDERED: cloNIDine HCL 0.1 MG TABLET PO ONE (10:15)
[2020-02-25 11:26] VITALS: BP 181/86
--- NOTE | 2020-02-25 13:26 | PHYS DOC ---
Past Medical History Past Medical History: CAD, Diabetes-Type II, High Cholesterol, Hypertension Additional Past Medical Histor: leukemia Past Surgical History: Cholecystectomy, Other Additional Past Surgical Histo: GALLSTONE SX Smoking Status: Never Smoker Alcohol Use: None Drug Use: None General Adult EDM: Chief Complaint: HYPERTENSION HPI: HPI: Patient is a 59 year old male with history of hypertension, dyslipidemia, diabetes mellitus, coronary artery disease who presents with complaining of elevation of blood pressure. Patient was seen at stock pitcher office today and had blood pressure of 240 and was told to come to ER for evaluation. Patient denies chest pain, shortness of breath, focal neuro deficit, headache, blurred vision, nausea and vomiting, missing his medication. Patient states he took 10 mg of amlodipine this morning like his usual medication dose but was not able to sleep well last night. Patient states his blood sugar was 130 yesterday and usually his blood pressure and his blood sugar is well controlled with the current medication. Review of Systems: Review of Systems: Constitutional: Denies fever or chills. [] Eyes: Denies change in visual acuity. [] HENT: Denies nasal congestion or sore throat. [] Respiratory: Denies cough or shortness of breath. [] Cardiovascular: Denies chest pain or edema. [] GI: Denies abdominal pain, nausea, vomiting, bloody stools or diarrhea. [] : Denies dysuria. [] Musculoskeletal: Denies back pain or joint pain. [] Integument: Denies rash. [] Neurologic: Denies headache, focal weakness or sensory changes. [] Endocrine: Denies polyuria or polydipsia. [] Lymphatic: Denies swollen glands. [] Psychiatric: Denies depression or anxiety. [] Heart Score: Risk Factors: Risk Factors: DM, Current or recent (<one month) smoker, HTN, HLP, family h istory of CAD, obesity. Risk Scores: Score 0 - 3: 2.5% MACE over next 6 weeks - Discharge Home Score 4 - 6: 20.3% MACE over next 6 weeks - Admit for Clinical Observation Score 7 - 10: 72.7% MACE over next 6 weeks - Early Invasive Strategies Current Medications: Current Medications Medications (Trade) Dose Ordered Sig/Fredis Start Time Stop Time Status Last Admin Dose Admin Clonidine HCl (Catapres) 0.1 mg 1X ONCE 02/25/20 10:15 02/25/20 10:17 DC 02/25/20 10:31 0.1 MG Allergies: Allergies: Allergies Coded Allergies Type Severity Reaction Last Updated Verified No Known Drug Allergies 05/11/17 No Physical Exam: PE: Constitutional: Well developed, well nourished, no acute distress, non-toxic appearance. [] HENT: Normocephalic, atraumatic, bilateral external ears normal, oropharynx moist, no oral exudates, nose normal. [] Eyes: PERRLA, EOMI, conjunctiva normal, no discharge. [] Neck: Normal range of motion, no tenderness, supple, no stridor. [] Cardiovascular:Heart rate regular rhythm, no murmur [] Lungs & Thorax: Bilateral breath sounds clear to auscultation [] Abdomen: Bowel sounds normal, soft, no tenderness, no masses, no pulsatile masses. [] Skin: Warm, dry, no erythema, no rash. [] Back: No tenderness, no CVA tenderness. [] Extremities: No tenderness, no cyanosis, no clubbing, ROM intact, no edema. [] Neurologic: Alert and oriented X 3, normal motor function, normal sensory function, no focal deficits noted. [] Psychologic: Affect normal, judgement normal, mood normal. [] Current Patient Data: Vital Signs: Vital Signs Date Time Temp Pulse Resp B/P (MAP) Pulse Ox O2 Delivery O2 Flow Rate FiO2 02/25/20 11:26 83 16 98 02/25/20 10:31 210/94 02/25/20 10:12 98.1 Room Air 98.1 EKG: EKG: [] Radiology/Procedures: Radiology/Procedures: [] Course & Med Decision Making: Course & Med Decision Making Evaluation of patient inertial 59-year-old male patient sent from [facility] office because of elevation of blood pressure. Patient had blood pressure of 200/75 at arrival to ER that gradually decreased to 184/86 after treated with 0.1 mg of clonidine. Patient had unremarkable physical exam and denied any symptoms. Patient stated his blood pressure usually is well controlled with his current medication. Patient was advised to continue his medication and record his blood pressure and follow-up with his primary care physician. I've spoken with the patient and/or caregivers. I've explained the patient's condition, diagnosis and treatment plan based on information available to me at this time. I've answered the patient's and/or caregivers questions and addressed any concerns. The patient and/or caregivers have a good understanding the patient's diagnosis, condition and treatment plan as can be expected at this point. Vital signs have been stabilized. The patient's condition is stable for discharge from the emergency department. The patient will pursue further outpatient evaluation with her primary care provider or other designated consulting physician as outlined in the discharge instructions. Patient and/or caregivers are agreeable to this plan of care and follow-up instructions have been explained in detail. The patient and/or caregivers have received these instructions in written format and expressed understanding of these discharge instructions. The patient and her caregivers are aware that if any significant change in condition or worsening of symptoms should prompt him to immediately return to this of the closest emergency department. If an emergent department is not readily available I would encourage him to call 911. Yary Disclaimer: Yary Disclaimer: This electronic medical record was generated, in whole or in part, using a voice recognition dictation system. Departure Departure Impression: Primary Impression: Essential hypertension Disposition: 01 HOME/RESIDENCE PRIOR TO ADM Condition: STABLE Referrals: Grant JOY MD (PCP) DAMASO MENDENHALL MD Feb 25, 2020 13:26
== END 2020-02-25 11:26 | disposition home or self-care (01) ==
LOC: ER 09:58
DX: I10 Essential (primary) hypertension (principal); E11.9 Type 2 diabetes mellitus without complications; E78.00 Pure hypercholesterolemia, unspecified; I25.10 Atherosclerotic heart disease of native coronary artery without angina pectoris
CPT/HCPCS: 99283

== ENCOUNTER 2020-03-02 09:39 | Inpatient (IN) | payer OTHER ==
[~2020-03-02] VITALS: Ht 175.3 cm; Wt 137.4 kg
[2020-03-02] MEDS ORDERED: ASPIRIN CHEWABLE 81 MG TABLET. PO ONE (10:30)
--- NOTE | 2020-03-02 11:38 | RAD ---
EXAM: CHEST ONE VIEW. HISTORY: Cough and chest pain. COMPARISON: None. FINDINGS: A frontal view of the chest is obtained. There are no confluent infiltrates. There is no pneumothorax or pleural effusion. The heart is not enlarged. IMPRESSION: 1. No confluent infiltrates. Electronically signed by: Arash Howard MD (03/02/2020 11:35 AM) [id number]
--- NOTE | 2020-03-02 11:48 | PHYS DOC ---
Past Medical History Past Medical History: CAD, Diabetes-Type II, High Cholesterol, Hypertension Additional Past Medical Histor: leukemia Past Surgical History: Cholecystectomy, Other Additional Past Surgical Histo: GALLSTONE SX Smoking Status: Never Smoker Alcohol Use: None Drug Use: None General Adult EDM: Chief Complaint: CHEST PAIN HPI: HPI: Patient is a 59 year old male with history of hypertension, dyslipidemia, diabetes mellitus, coronary artery disease who presents with complaint of cough and chest pain. Patient complaining of intermittent episodes of nonproductive cough and left lower lateral chest wall aching since yesterday without fever, shortness of breath, dizziness, palpitation, chest injury. Patient was seen in this emergency room 6 days ago with uncontrolled hypertension and had blood pressure of 200 at arrival to ER again. Patient did not have sick contacts with COVID-19 patient. Review of Systems: Review of Systems: Constitutional: Denies fever or chills. [] Eyes: Denies change in visual acuity. [] HENT: Denies nasal congestion or sore throat. [] Respiratory: Denies shortness of breath, reports cough. [] Cardiovascular: Reports chest pain GI: Denies abdominal pain, nausea, vomiting, bloody stools or diarrhea. [] : Denies dysuria. [] Musculoskeletal: Denies back pain or joint pain. [] Integument: Denies rash. [] Neurologic: Denies headache, focal weakness or sensory changes. [] Endocrine: Denies polyuria or polydipsia. [] Lymphatic: Denies swollen glands. [] Psychiatric: Denies depression or anxiety. [] Heart Score: HEART Score for Chest Pain: HEART Score for Chest Pain Response (Comments) Value History Moderately Suspicious 1 ECG Nonspecific Repolarizatio 1 Age >45 - < 65 1 Risk Factors >3 Risk Factors or Hx CAD 2 Troponin < Normal Limit 0 Total 5 Risk Factors: Risk Factors: DM, Current or recent (<one month) smoker, HTN, HLP, family history of CAD, obesity. Risk Scores: Score 0 - 3: 2.5% MACE over next 6 weeks - Discharge Home Score 4 - 6: 20.3% MACE over next 6 weeks - Admit for Clinical Observation Score 7 - 10: 72.7% MACE over next 6 weeks - Early Invasive Strategies Current Medications: Current Medications Medications (Trade) Dose Ordered Sig/Fredis Start Time Stop Time Status Last Admin Dose Admin Aspirin (Aspirin Chewable) 324 mg 1X ONCE 03/02/20 10:30 03/02/20 10:31 DC Nitroglycerin (Nitrostat) 0.4 mg PRN Q5MIN PRN 03/02/20 10:30 03/03/20 10:29 Allergies: Allergies: Allergies Coded Allergies Type Severity Reaction Last Updated Verified No Known Drug Allergies 05/11/17 No Physical Exam: PE: Constitutional: Well developed, well nourished, mild distress, non-toxic appearance. [] HENT: Normocephalic, atraumatic. Eyes: PERRLA, EOMI, conjunctiva normal, no discharge. [] Neck: Normal range of motion, no tenderness, supple, no stridor. [] Cardiovascular:Heart rate regular rhythm, no murmur [] Lungs & Thorax: Bilateral breath sounds clear to auscultation [] Abdomen: Bowel sounds normal, soft, no tenderness, no masses, no pulsatile masses. [] Skin: Warm, dry, no erythema, no rash. [] Back: No tenderness, no CVA tenderness. [] Extremities: No tenderness, no cyanosis, no clubbing, ROM intact, no edema. [] Neurologic: Alert and oriented X 3, no focal deficits noted. [] Psychologic: Affect normal, judgement normal, mood normal. [] Current Patient Data: Vital Signs: Vital Signs Date Time Temp Pulse Resp B/P (MAP) Pulse Ox O2 Delivery O2 Flow Rate FiO2 03/02/20 10:12 99.0 86 20 200/95 (130) 99 Room Air 99.0 EKG: EKG: EKG interpreted by me. EKG at 1029 showed normal sinus rhythm at rate of 85, leftward axis, LVH with repolarization abnormality, normal PA and QT intervals, inverted T wave in lateral leads, poor R wave progression anteroseptal leads, no acute ST and T wave elevation. Radiology/Procedures: Radiology/Procedures: [facility] [address] [place] [address] IMAGING REPORT Signed PATIENT: MARIXA DE LA FUENTE ACCOUNT: [id number] : 1960 LOCATION: ER AGE: 59 SEX: M EXAM STATUS: REG ER ORD. PHYSICIAN: DAMASO MENDENHALL MD REASON: Chest pain and cough. PROCEDURE: PORTABLE CHEST 1V EXAM: CHEST ONE VIEW. HISTORY: Cough and chest pain. COMPARISON: None. FINDINGS: A frontal view of the chest is obtained. There are no confluent infiltrates. There is no pneumothorax or pleural effusion. The heart is not enlarged. IMPRESSION: 1. No confluent infiltrates. Electronically signed by: Arash Howard MD (03/02/2020 11:35 AM) [id number] DICTATED and SIGNED BY: MORALES HOWARD MD DATE: 03/02/20 1135 Course & Med Decision Making: Course & Med Decision Making Pertinent Labs and Imaging studies reviewed. (See chart for details) Evaluation of patient in ER showed 59-year-old male patient with heart score of 5 and complaining of cough and chest pain. Patient had blood pressure of more than 200 and treated with nitro with improvement of chest pain and blood pressure. Patient had mild elevation of troponin. Patient also has concern for COVID-19 with pending COVID-19 test. Patient requiring admission for further evaluation and treatment. Discussed with Dr. Solomon who is in agreement with admission. Discussed findings and plan with patient and family, who acknowledge understanding and agreement. Dragon Disclaimer: DragMecox Lane Disclaimer: This electronic medical record was generated, in whole or in part, using a voice recognition dictation system. Departure Departure Impression: Primary Impression: Atypical chest pain Additional Impressions: Elevated troponin Hypertensive urgency Suspected COVID-19 virus infection Disposition: ADMITTED INPATIENT (At 1216) [facility] (Dr. Solomon accepted admission at 1215) Condition: IMPROVED Referrals: Grant JOY MD (PCP) DAMASO MENDENHALL MD Mar 02, 2020 11:47
[2020-03-02] MEDS: NITROGLYCERIN SUBLINGUAL 0.4 MG BOTTLE OF 25. SL PRN ×3 (11:53→12:08)
[2020-03-02 11:54] LABS: BILIRUBIN,URINE NEGATIVE (NEG); CLARITY,URINE CLEAR; COLOR,URINE YELLOW; NITRITE,URINE NEGATIVE (NEG); PROTEIN,URINE 100 mg/dL (NEG-TRACE)
--- NOTE | 2020-03-02 12:03 | EKG ---
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 Electronically Signed On 03-03-2020 10:20:06 CDT by Dhiraj Mckoy
[2020-03-02 12:08] LABS: RBC,URINE RARE /HPF (0-2)
[2020-03-02 12:09] LABS: CALCIUM 8.2 mg/dL (8.5-10.1); CREATININE 1.1 mg/dL (0.7-1.3); GFR 82.3; POTASSIUM 3.5 mmol/L (3.5-5.1)
[2020-03-02 12:09] LABS: BACTERIA,URINE 0 /HPF (0-FEW); SQUAMOUS EPITHELIAL CELL,UR FEW /LPF; WBC,URINE 0 /HPF (0-4)
[2020-03-02 12:16] LABS: ALBUMIN 3.5 g/dL (3.4-5.0); ALBUMIN/GLOBULIN RATIO 1.1 (1.0-1.7); TOTAL BILIRUBIN 0.3 mg/dL (0.2-1.0); TOTAL PROTEIN 6.8 g/dL (6.4-8.2)
[2020-03-02 12:21] LABS: BASO # 0.1 x10^3/uL (0.0-0.2); BASO % 1 % (0-3); EOS # 0.3 x10^3/uL (0.0-0.7); EOS % 4 % (0-3); HEMATOCRIT 43.7 % (39.0-53.0); HEMOGLOBIN 14.5 g/dL (13.0-17.5); LYMPH # 1.6 x10^3/uL (1.0-4.8); LYMPH % 20 % (24-48); MEAN CORPUSCULAR HEMOGLOBIN 28 pg (25-35); MEAN CORPUSCULAR HGB CONC 33 g/dL (31-37); MEAN CORPUSCULAR VOLUME 84 fL (79-100); MONO # 0.6 x10^3/uL (0.0-1.1); MONO % 7 % (0-9); NEUT # 5.2 x10^3/uL (1.8-7.7); NEUT % 67 % (31-73); PLATELET COUNT 148 x10^3/uL (140-400); RED BLOOD COUNT 5.23 x10^6/uL (4.30-5.70); RED CELL DISTRIBUTION WIDTH 15.3 % (11.5-14.5); WHITE BLOOD COUNT 7.8 x10^3/uL (4.0-11.0)
--- NOTE | 2020-03-02 14:36 | PDOC2 ---
FAIZAN HORAN DISTRIBUTION OPERATION SUPERVISOR 03/02/20 1436: CARDIAC CONSULT DATE OF CONSULT Date of Consult DATE: 03/02/20 TIME: 14:17 REASON FOR CONSULT Reason for Consult: Elevated troponin REFERRING PHYSICIAN Referring Physician: Maurice SOURCE Source: Chart review, Patient HISTORY OF PRESENT ILLNESS HISTORY OF PRESENT ILLNESS This is a pleasant 59 yo male admitted for complains of left lower back pain. Consult is for chest pain. Completely denies chest pain. Denies any SOA. No nausea or vomiting. Reports left low back but no CVA tenderness. He did lift heavy object Hui. Denies any REGAN and no palpitations. Denies SUÁREZ, PND, orthopnea. He does report that his BP has been high and think that his machine is broken. At home he notes his SBP in the 170s. He has chronic lymphedema with some lesions to his leg which was just biopsied few days after seeing his machinist first class. He did have LHC from about 16 months which showed 20% lesion to LAD otherwise no significant CAD. No recent falls or injury. No fever or chills. He does have intermittent cough but nonproductive and blames it on allergy. Presently no cough, SOA, nor CP. SBP in the 180s. PAST MEDICAL HISTORY Past Medical History Cardiovascular: HTN, Hyperlipidemia, CAD with 20% lesion to LAD otherwise no significant disease. LE lymphedema Pulmonary: No pertinent hx CENTRAL NERVOUS SYSTEM: Other (NO pertinent histoy) GI: No pertinent hx Heme/Onc: remote Leukemia Hepatobiliary: No pertinent hx Psych: No pertinent hx Musculoskeletal: Osteoarthritis Rheumatologic: No pertinent hx Infectious disease: No pertinent hx ENT: No pertinent hx Renal/: nephrolithiasis Endocrine: Diabetes (2) Dermatology: No pertinent hx PAST SURGICAL HISTORY Past Surgical History: Other ([facility]) FAMILY HISTORY Family History: Hypertension SOCIAL HISTORY Smoke: No ALCOHOL: occassional Drugs: None Lives: with Family CURRENT MEDICATIONS CURRENT MEDICATIONS Current Medications Medications (Trade) Dose Ordered Sig/Fredis Route PRN Reason Start Time Stop Time Status Last Admin Dose Admin Aspirin (Aspirin Chewable) 324 mg 1X ONCE PO 03/02/20 10:30 03/02/20 10:31 DC 03/02/20 11:53 Nitroglycerin (Nitrostat) 0.4 mg PRN Q5MIN PRN SL CP RATING > 1/10 03/02/20 10:30 03/03/20 10:29 03/02/20 12:08 ALLERGIES ALLERGIES: Coded Allergies: No Known Drug Allergies (Unverified , 05/11/17) ROS Review of System 14 point ROS evaluated with pertinent positives noted per HPI PHYSICAL EXAM General: Alert, Oriented X3, Cooperative, No acute distress HEENT: Atraumatic, Mucous membr. moist/pink Lungs: Clear to auscultation, Normal air movement Heart: Regular rate (SR), Normal S1, Normal S2, No murmurs Abdomen: Soft, No tenderness Extremities: No cyanosis, Other (2-3+ bilateral pedal edema. Leg wraps in place, no wounds, no claudication symptoms. ) Skin: No rashes Neuro: Normal speech, Sensation intact Psych/Mental Status: Mental status NL, Mood NL MUSCULOSKELETAL: Osteoarthritic changes both hands VITALS/I&O VITALS/I&O: Vital Signs Date Time Temp Pulse Resp B/P (MAP) Pulse Ox O2 Delivery O2 Flow Rate FiO2 03/02/20 12:15 80 18 151/82 (105) 97 Room Air 03/02/20 10:12 99.0 99.0 LABS Lab: Laboratory Tests Test 03/02/20 11:36 03/02/20 11:42 Urine Collection Type Unknown Urine Color Yellow Urine Clarity Clear Urine pH 6.0 (<5.0-8.0) Urine Specific Wallace 1.020 (1.000-1.030) Urine Protein 100 mg/dL (NEG-TRACE) Urine Glucose (UA) Negative mg/dL (NEG) Urine Ketones (Stick) Negative mg/dL (NEG) Urine Blood Negative (NEG) Urine Nitrite Negative (NEG) Urine Bilirubin Negative (NEG) Urine Urobilinogen Dipstick 1.0 mg/dL (0.2 mg/dL) Urine Leukocyte Esterase Negative (NEG) Urine RBC Rare /HPF (0-2) Urine WBC 0 /HPF (0-4) Urine Squamous Epithelial Cells Few /LPF Urine Bacteria 0 /HPF (0-FEW) White Blood Count 7.8 x10^3/uL (4.0-11.0) Red Blood Count 5.23 x10^6/uL (4.30-5.70) Hemoglobin 14.5 g/dL (13.0-17.5) Hematocrit 43.7 % (39.0-53.0) Mean Corpuscular Volume 84 fL (79-100) Mean Corpuscular Hemoglobin 28 pg (25-35) Mean Corpuscular Hemoglobin Concent 33 g/dL (31-37) Red Cell Distribution Width 15.3 % (11.5-14.5) H Platelet Count 148 x10^3/uL (140-400) Neutrophils (%) (Auto) 67 % (31-73) Lymphocytes (%) (Auto) 20 % (24-48) L Monocytes (%) (Auto) 7 % (0-9) Eosinophils (%) (Auto) 4 % (0-3) H Basophils (%) (Auto) 1 % (0-3) Neutrophils # (Auto) 5.2 x10^3/uL (1.8-7.7) Lymphocytes # (Auto) 1.6 x10^3/uL (1.0-4.8) Monocytes # (Auto) 0.6 x10^3/uL (0.0-1.1) Eosinophils # (Auto) 0.3 x10^3/uL (0.0-0.7) Basophils # (Auto) 0.1 x10^3/uL (0.0-0.2) D-Dimer (Rachell) 0.66 ug/mlFEU (0.00-0.50) H Sodium Level 142 mmol/L (136-145) Potassium Level 3.5 mmol/L (3.5-5.1) Chloride Level 106 mmol/L (98-107) Carbon Dioxide Level 27 mmol/L (21-32) Anion Gap 9 (6-14) Blood Urea Nitrogen 26 mg/dL (8-26) Creatinine 1.1 mg/dL (0.7-1.3) Estimated GFR (Cockcroft-Gault) 82.3 BUN/Creatinine Ratio 24 (6-20) H Glucose Level 127 mg/dL (70-99) H Lactic Acid Level 1.9 mmol/L (0.4-2.0) Calcium Level 8.2 mg/dL (8.5-10.1) L Magnesium Level 2.0 mg/dL (1.8-2.4) Total Bilirubin 0.3 mg/dL (0.2-1.0) Aspartate Amino Transferase (AST) 16 U/L (15-37) Alanine Aminotransferase (ALT) 30 U/L (16-63) Alkaline Phosphatase 114 U/L (46-116) Creatine Kinase 73 U/L (39-308) Troponin I Quantitative 0.073 ng/mL (0.000-0.055) AK-Wrd-P-Type Natriuretic Peptide 219 pg/mL (0-124) H Total Protein 6.8 g/dL (6.4-8.2) Albumin 3.5 g/dL (3.4-5.0) Albumin/Globulin Ratio 1.1 (1.0-1.7) Lipase 69 U/L (73-393) L Laboratory Tests 03/02/20 11:42 Laboratory Tests 03/02/20 11:42 ECHOCARDIOGRAM ECHOCARDIOGRAM <Conclusion> There is moderate concentric left ventricular hypertrophy. The left ventricular systolic function is normal and the ejection fraction is within normal range. The Ejection Fraction is 50-55%. There is normal LV segmental wall motion. DATE: 11/11/18 1639 HEART CATH HEART CATH CORONARY ANGIOGRAPHY: LM is a large caliber vessel with normal angiographic appearance. LAD is a large caliber vessel with a proximal 20% stenosis. Ramus is a moderate caliber vessel with normal angiographic apeparance. LCx is a moderate caliber non-dominant vessel with mild luminal irregularities. OM1 is a moderate caliber vessel with normal angiographic appearance. RCA is a large caliber hyperdominant vessel with minimal luminal irregularities. RPDA is a moderate caliber vessel which extends to the apex of the heart and has a normal angiographic appearance. Conclusion 1. Normal left sided filling pressures. 2. Normal EF at 55% 3. No significant coronary disease. Recommendations Aggressive Medical Therapy DATE: 11/11/18 6077 ASSESSMENT/PLAN ASSESSMENT/PLAN 1. Left lower back: No chest pain. possible MSK with heavy lifting Friday. He does have hx of nephrolithiasis. 2. HTN urgency: due to inadequate meds 3. Mild troponin elevation: 0.073. possibly type 2, demand mediated due to uncontrolled HTN Doubt ACS. EKG SR without acute changes by comparison. 4. HLP 5. DM2 6. Obesity 7. Chronic LE lymphedema with recurring cellultiis: S/P biopsy by a machinist first class few days ago. Completed antibiotics recently Recommendations 1. Doubt covid. Test pending. TTE if negative. x1 more trop. 2. I called his pharmacy and verified his BP meds and he is on HCTZ/amlodipine/toprol/lisinopril. He is not on clonidine nor bidil as noted from his very recent outpt PCP visit. 3. Resume BP meds as noted above. and will increase lisinopril. Clonidine x1 and PRN. Continue ASA and lipitor. Consider stopping routine aleve. 4. If covid neg then will consider for renal duplex. 5. TSH, lipids, A1C. SHI WOODY MD 03/02/20 1651: CARDIAC CONSULT ASSESSMENT/PLAN ASSESSMENT/PLAN Patient discussed with our ASSISTANT SALES CENTER MANAGER and evaluated Hypertensive urgency. Resuming blood pressure medications with an increase as noted above. We will continue to monitor. Minimally elevated troponin at 0.073. Most consistent with type II demand ischemia. We will rule out. Will control patient's hypertension and continue to monitor. Hyperlipidemia. Check lab. Patient being tested for COVID. Will await results. Lower extremity edema and recurrent cellulitis as noted above. Diabetes mellitus. As per the primary service. Thank you for allowing us to participate in the care of your patient. FAIZAN HORAN APRN Mar 02, 2020 14:36 SHI WOODY MD Mar 02, 2020 16:29
--- NOTE | 2020-03-02 15:09 | PDOC1 ---
History and Physical Date of Admission Date of Admission DATE: 03/02/20 TIME: 15:08 Identification/Chief Complaint Chief Complaint SEEN IN ER , 59 year old male with history of hypertension, dyslipidemia, diabetes mellitus, coronary artery disease who presents with complaint of cough and chest pain. NOTES intermittent episodes of nonproductive cough and left lower lateral chest wall aching since yesterday without fever, shortness of breath, dizziness, palpitation, chest injury. was seen in this emergency room 6 days ago with uncontrolled hypertension and had blood pressure of 200 at arrival to ER bp today uncontrolled COVID-19 CRITERIA: The patient was evaluated during the global COVID-19 pandemic, and that diagnosis was suspected/considered upon their initial presentation. Their evaluation, treatment and testing were consistent with current guidelines for patients who present with complaints or symptoms that may be related to COVID-19 Past Medical History Past Medical History Past Medical History Past Medical History: CAD, Diabetes-Type II, High Cholesterol, Hypertension Additional Past Medical Histor: leukemia Past Surgical History: Cholecystectomy, Other Additional Past Surgical Histo: GALLSTONE SX Smoking Status: Never Smoker Alcohol Use: None Drug Use: None PAST MEDICAL HISTORY: Coronary artery disease, hypertension, hyperlipidemia, diabetes, leukemia, cholecystectomy, gallstones. ALLERGIES: None. FAMILY HISTORY: Gallstones. SOCIAL HISTORY: He works at [employer] in the [employer] department. He does not drink, smoke or take drugs. MEDICATIONS: Reviewed, please refer to the MRAD. AST MEDICAL HISTORY Past Medical History Cardiovascular: HTN, Hyperlipidemia, CAD with 20% lesion to LAD otherwise no significant disease. LE lymphedema Pulmonary: No pertinent hx CENTRAL NERVOUS SYSTEM: Other (NO pertinent histoy) GI: No pertinent hx Heme/Onc: remote Leukemia Hepatobiliary: No pertinent hx Psych: No pertinent hx Musculoskeletal: Osteoarthritis Rheumatologic: No pertinent hx Infectious disease: No pertinent hx ENT: No pertinent hx Renal/: nephrolithiasis Endocrine: Diabetes (2) Dermatology: No pertinent hx PAST SURGICAL HISTORY Past Surgical History: Other ([facility]) FAMILY HISTORY Family History noncontributory to CV SOCIAL HISTORY Smoke: No ALCOHOL: occassional Drugs: None Lives: with Family fhx obesity Cardiovascular: HTN, Hyperlipidemia Pulmonary: No pertinent hx CENTRAL NERVOUS SYSTEM: Other GI: No pertinent hx Heme/Onc: No pertinent hx Hepatobiliary: No pertinent hx Psych: No pertinent hx Musculoskeletal: Osteoarthritis Rheumatologic: No pertinent hx Infectious disease: No pertinent hx Renal/: No pertinent hx Endocrine: Diabetes Past Surgical History Past Surgical History: Other ([facility]) Family History Family History: Hypertension Social History Smoke: No ALCOHOL: none Drugs: None Current Problem List Problem List Problems Medical Problems: (1) Elevated troponin Status: Acute (2) Hypertensive urgency Status: Acute (3) Suspected COVID-19 virus infection Status: Acute Current Medications Current Medications Current Medications Aspirin (Aspirin Chewable) 324 mg 1X ONCE PO Last administered on 03/02/20at 11:53; Start 03/02/20 at 10:30; Stop 03/02/20 at 10:31; Status DC Nitroglycerin (Nitrostat) 0.4 mg PRN Q5MIN PRN SL CP RATING > 1/10 Last administered on 03/02/20at 12:08; Start 03/02/20 at 10:30; Stop 03/03/20 at 10:29 Active Scripts Active [Fluconazole] 100 MG Tablet 200 Mg PO DAILY 7 Days Amox Tr-K Clv 875-125 Mg Tab (Amoxicillin/Potassium Clav) 1 Each Tablet 1 Tab PO BID 7 Days Klor-Con 10 (Potassium Chloride) 10 Meq Tablet.er 1 Tab PO DAILY 30 Days Naproxen 500 Mg Tablet 1 Tab PO BID PRN Reported Metformin Hcl 1,000 Mg Tablet 1,000 Mg PO BID Lantus (Insulin Glargine,Hum.rec.anlog) 100 Unit/1 Ml Vial 100 Unit SQ HS Aspirin 81 Mg Tab.chew 1 Tab PO DAILY Repaglinide 1 Mg Tablet 1 Mg PO TID Zetia (Ezetimibe) 10 Mg Tablet 1 Tab PO DAILY Metoprolol Tartrate 100 Mg Tablet 1 Tab PO BID Amlodipine-Benazepril 10-20 Mg (Amlodipine Besylate/Benazepril) 1 Each Capsule 1 Cap PO DAILY Allergies Allergies: Coded Allergies: No Known Drug Allergies (Unverified , 05/11/17) ROS Review of System Review of Systems: Constitutional: Denies fever or chills. [] Eyes: Denies change in visual acuity. [] HENT: Denies nasal congestion or sore throat. [] Respiratory: Denies shortness of breath, reports cough. [] Cardiovascular: Reports chest pain GI: Denies abdominal pain, nausea, vomiting, bloody stools or diarrhea. [] : Denies dysuria. [] Musculoskeletal: Denies back pain or joint pain. [] Integument: Denies rash. [] Neurologic: Denies headache, focal weakness or sensory changes. [] Endocrine: Denies polyuria or polydipsia. [] Lymphatic: Denies swollen glands. [] Psychiatric: Denies depression or anxiety. [] 14 pt ros otherwise neg ALLERGY AND IMMUNOLOGY: No: Hives, Insect Bite Sensitivity, Itchy/Watery Eyes, Nasal Congestion, Post Nasal Drip, Seasonal Allergies, Other Hematological and Lymphatic: No: Bleeding Problems, Blood Clots, Blood Transfusions, Brusing, Night Sweats, Pallor, Swollen Lymph Nodes, Other Respiratory: YES: Shortness of breath Cardiovascular: yes Chest Pain; No Palpitations, No Orthopnea, No Paroxysmal Noc. Dyspnea, No Edema, No Lt Headedness, No Other Gastrointestinal: No Nausea, No Vomiting, No Abdominal Pain, No Diarrhea, No Constipation, No Melena, No Hematochezia, No Other Musculoskeletal: Yes Muscle Pain Skin: No Dry Skin, No Eczema, No Hair Changes, No Lumps, No Mole Changes, No Mottling, No Nail Changes, No Pruritus, No Rash, No Skin Lesion Changes, No Other, No Acne Physical Exam Physical Exam Constitutional: Well developed, well nourished, mild distress, non-toxic appearance. [] HENT: Normocephalic, atraumatic. Eyes: PERRLA, EOMI, conjunctiva normal, no discharge. [] Neck: Normal range of motion, no tenderness, supple, no stridor. [] Cardiovascular:Heart rate regular rhythm, no murmur [] Lungs & Thorax: Bilateral breath sounds clear to auscultation [] Abdomen: Bowel sounds normal, soft, no tenderness, no masses, no pulsatile masses. [] Skin: Warm, dry, no erythema, no rash. [] Back: No tenderness, no CVA tenderness. [] Extremities: No tenderness, no cyanosis, no clubbing, ROM intact, no edema. [] Neurologic: Alert and oriented X 3, no focal deficits noted. [] Psychologic: Affect normal, judgment normal, mood normal. [] General: Alert, Oriented X3, Cooperative, mild distress Lungs: Clear to auscultation Heart: RRR, no thrills Abdomen: Normal bowel sounds, Soft Rectal Exam: not examined PELVIC: Examination not indicated Extremities: No cyanosis Neuro: Normal speech, Cranial nerves 3-12 NL Psych/Mental Status: Mental status NL, Mood NL Vitals Vitals Vital Signs Date Time Temp Pulse Resp B/P (MAP) Pulse Ox O2 Delivery O2 Flow Rate FiO2 03/02/20 14:00 78 16 198/104 (135) 99 Room Air 03/02/20 10:12 99.0 99.0 Labs Labs Laboratory Tests Test 03/02/20 11:36 03/02/20 11:42 Urine Collection Type Unknown Urine Color Yellow Urine Clarity Clear Urine pH 6.0 (<5.0-8.0) Urine Specific [place] 1.020 (1.000-1.030) Urine Protein 100 mg/dL (NEG-TRACE) Urine Glucose (UA) Negative mg/dL (NEG) Urine Ketones (Stick) Negative mg/dL (NEG) Urine Blood Negative (NEG) Urine Nitrite Negative (NEG) Urine Bilirubin Negative (NEG) Urine Urobilinogen Dipstick 1.0 mg/dL (0.2 mg/dL) Urine Leukocyte Esterase Negative (NEG) Urine RBC Rare /HPF (0-2) Urine WBC 0 /HPF (0-4) Urine Squamous Epithelial Cells Few /LPF Urine Bacteria 0 /HPF (0-FEW) White Blood Count 7.8 x10^3/uL (4.0-11.0) Red Blood Count 5.23 x10^6/uL (4.30-5.70) Hemoglobin 14.5 g/dL (13.0-17.5) Hematocrit 43.7 % (39.0-53.0) Mean Corpuscular Volume 84 fL (79-100) Mean Corpuscular Hemoglobin 28 pg (25-35) Mean Corpuscular Hemoglobin Concent 33 g/dL (31-37) Red Cell Distribution Width 15.3 % (11.5-14.5) Platelet Count 148 x10^3/uL (140-400) Neutrophils (%) (Auto) 67 % (31-73) Lymphocytes (%) (Auto) 20 % (24-48) Monocytes (%) (Auto) 7 % (0-9) Eosinophils (%) (Auto) 4 % (0-3) Basophils (%) (Auto) 1 % (0-3) Neutrophils # (Auto) 5.2 x10^3/uL (1.8-7.7) Lymphocytes # (Auto) 1.6 x10^3/uL (1.0-4.8) Monocytes # (Auto) 0.6 x10^3/uL (0.0-1.1) Eosinophils # (Auto) 0.3 x10^3/uL (0.0-0.7) Basophils # (Auto) 0.1 x10^3/uL (0.0-0.2) D-Dimer (Rachell) 0.66 ug/mlFEU (0.00-0.50) Sodium Level 142 mmol/L (136-145) Potassium Level 3.5 mmol/L (3.5-5.1) Chloride Level 106 mmol/L (98-107) Carbon Dioxide Level 27 mmol/L (21-32) Anion Gap 9 (6-14) Blood Urea Nitrogen 26 mg/dL (8-26) Creatinine 1.1 mg/dL (0.7-1.3) Estimated GFR (Cockcroft-Gault) 82.3 BUN/Creatinine Ratio 24 (6-20) Glucose Level 127 mg/dL (70-99) Lactic Acid Level 1.9 mmol/L (0.4-2.0) Calcium Level 8.2 mg/dL (8.5-10.1) Magnesium Level 2.0 mg/dL (1.8-2.4) Total Bilirubin 0.3 mg/dL (0.2-1.0) Aspartate Amino Transf (AST/SGOT) 16 U/L (15-37) Alanine Aminotransferase (ALT/SGPT) 30 U/L (16-63) Alkaline Phosphatase 114 U/L (46-116) Creatine Kinase 73 U/L (39-308) Troponin I Quantitative 0.073 ng/mL (0.000-0.055) PU-Fqx-T-Type Natriuretic Peptide 219 pg/mL (0-124) Total Protein 6.8 g/dL (6.4-8.2) Albumin 3.5 g/dL (3.4-5.0) Albumin/Globulin Ratio 1.1 (1.0-1.7) Lipase 69 U/L (73-393) Laboratory Tests Test 03/02/20 11:36 03/02/20 11:42 Urine Collection Type Unknown Urine Color Yellow Urine Clarity Clear Urine pH 6.0 (<5.0-8.0) Urine Specific [place] 1.020 (1.000-1.030) Urine Protein 100 mg/dL (NEG-TRACE) Urine Glucose (UA) Negative mg/dL (NEG) Urine Ketones (Stick) Negative mg/dL (NEG) Urine Blood Negative (NEG) Urine Nitrite Negative (NEG) Urine Bilirubin Negative (NEG) Urine Urobilinogen Dipstick 1.0 mg/dL (0.2 mg/dL) Urine Leukocyte Esterase Negative (NEG) Urine RBC Rare /HPF (0-2) Urine WBC 0 /HPF (0-4) Urine Squamous Epithelial Cells Few /LPF Urine Bacteria 0 /HPF (0-FEW) White Blood Count 7.8 x10^3/uL (4.0-11.0) Red Blood Count 5.23 x10^6/uL (4.30-5.70) Hemoglobin 14.5 g/dL (13.0-17.5) Hematocrit 43.7 % (39.0-53.0) Mean Corpuscular Volume 84 fL (79-100) Mean Corpuscular Hemoglobin 28 pg (25-35) Mean Corpuscular Hemoglobin Concent 33 g/dL (31-37) Red Cell Distribution Width 15.3 % (11.5-14.5) Platelet Count 148 x10^3/uL (140-400) Neutrophils (%) (Auto) 67 % (31-73) Lymphocytes (%) (Auto) 20 % (24-48) Monocytes (%) (Auto) 7 % (0-9) Eosinophils (%) (Auto) 4 % (0-3) Basophils (%) (Auto) 1 % (0-3) Neutrophils # (Auto) 5.2 x10^3/uL (1.8-7.7) Lymphocytes # (Auto) 1.6 x10^3/uL (1.0-4.8) Monocytes # (Auto) 0.6 x10^3/uL (0.0-1.1) Eosinophils # (Auto) 0.3 x10^3/uL (0.0-0.7) Basophils # (Auto) 0.1 x10^3/uL (0.0-0.2) D-Dimer (Rachell) 0.66 ug/mlFEU (0.00-0.50) Sodium Level 142 mmol/L (136-145) Potassium Level 3.5 mmol/L (3.5-5.1) Chloride Level 106 mmol/L (98-107) Carbon Dioxide Level 27 mmol/L (21-32) Anion Gap 9 (6-14) Blood Urea Nitrogen 26 mg/dL (8-26) Creatinine 1.1 mg/dL (0.7-1.3) Estimated GFR (Cockcroft-Gault) 82.3 BUN/Creatinine Ratio 24 (6-20) Glucose Level 127 mg/dL (70-99) Lactic Acid Level 1.9 mmol/L (0.4-2.0) Calcium Level 8.2 mg/dL (8.5-10.1) Magnesium Level 2.0 mg/dL (1.8-2.4) Total Bilirubin 0.3 mg/dL (0.2-1.0) Aspartate Amino Transf (AST/SGOT) 16 U/L (15-37) Alanine Aminotransferase (ALT/SGPT) 30 U/L (16-63) Alkaline Phosphatase 114 U/L (46-116) Creatine Kinase 73 U/L (39-308) Troponin I Quantitative 0.073 ng/mL (0.000-0.055) OZ-Gto-X-Type Natriuretic Peptide 219 pg/mL (0-124) Total Protein 6.8 g/dL (6.4-8.2) Albumin 3.5 g/dL (3.4-5.0) Albumin/Globulin Ratio 1.1 (1.0-1.7) Lipase 69 U/L (73-393) Images Images EXAM: 1. Lumbar spine 5 views. 2. Right hip 2 views with frontal pelvis. HISTORY: Low back and right hip pain. COMPARISON: None. FINDINGS: No fractures are identified in the lumbar spine. Alignment is maintained. Degenerative disc disease is moderate at L4-5 and mild at L3-4 and L5-S1. Cholecystectomy clips are noted. Small osteophytes indicate mild bilateral hip osteoarthritis. There is mildly decreased femoral head/neck offset anteriorly on the right. No fractures are identified throughout the pelvis and hips. IMPRESSION: 1. Degenerative disc disease is moderate at L4-5 and mild at L3-4 and L5-S1. 2. Mild bilateral hip osteoarthritis. Electronically signed by: Arash Howard MD (04/19/2019 4:10 PM) [facility] DICTATED and SIGNED BY: MORALES HOWARD MD DATE: 04/19/19 1610 CORONARY ANGIOGRAPHY: LM is a large caliber vessel with normal angiographic appearance. LAD is a large caliber vessel with a proximal 20% stenosis. Ramus is a moderate caliber vessel with normal angiographic apeparance. LCx is a moderate caliber non-dominant vessel with mild luminal irregularities. OM1 is a moderate caliber vessel with normal angiographic appearance. RCA is a large caliber hyperdominant vessel with minimal luminal irregularities. RPDA is a moderate caliber vessel which extends to the apex of the heart and has a normal angiographic appearance. Conclusion 1. Normal left sided filling pressures. 2. Normal EF at 55% 3. No significant coronary disease. Recommendations Aggressive Medical Therapy DATE: 11/11/18 0757 Bilateral Lower Extremity Venous Doppler Ultrasound History: Bilateral lower extremity edema and erythema Comparison: None Procedure: Color flow, duplex, spectral analysis and 2D images are obtained with and without compression in the area of the common femoral vein, superficial femoral vein - femoral vein junction, main femoral vein (superficial femoral vein) and popliteal vein. Veins of the proximal calf are also imaged. Findings: There is normal duplex flow, color flow and compressibility of all visualized vein segments. No evidence of deep venous thrombus is present. There is reactive lymphadenopathy in the left groin. Impression: No evidence of DVT. Electronically signed by: Alvaro Marte III, MD (01/16/2020 3:20 PM) [id number] DICTATED and SIGNED BY: ALVARO MARTE III, MD STATUS: REG ER ORD. PHYSICIAN: DAMASO MENDENHALL MD REASON: Chest pain and cough. PROCEDURE: PORTABLE CHEST 1V EXAM: CHEST ONE VIEW. HISTORY: Cough and chest pain. COMPARISON: None. FINDINGS: A frontal view of the chest is obtained. There are no confluent infiltrates. There is no pneumothorax or pleural effusion. The heart is not enlarged. IMPRESSION: 1. No confluent infiltrates. Electronically signed by: Arash Howard MD (03/02/2020 11:35 AM) [id number] DICTATED and SIGNED BY: MORALES HOWARD MD DATE: 03/02/20 1135 VTE Prophylaxis Ordered VTE Prophylaxis Devices: No VTE Pharmacological Prophylaxi: Yes Assessment/Plan Assessment/Plan IMPRESSION: cough with No confluent infiltrates. recent Bilateral leg cellulitis, improved Concern for covid-19 symptoms Coronary artery disease atypical chest pain CAD with 20% lesion to LAD otherwise no significant disease. LE lymphedema Hypertension with acute hypertensive urgency Hyperlipidemia Degenerative disc disease// moderate at L4-5 and mild at L3-4 and L5-S1. Mild bilateral hip osteoarthritis. elevated troponin i Diabetes HX LEUKEMIA PLAN ADMIT COVID-19 SCREENING PULM CONSULT CARDIOLOGY CONSULT trend troponin i iv hydralazine 10mg q 4 hrs prn bp support dvt prophylaxis home meds accuchecks COVID-19 CRITERIA: The patient was evaluated during the global COVID-19 pandemic, and that diagnosis was suspected/considered upon their initial presentation. Their evaluation, treatment and testing were consistent with current guidelines for patients who present with complaints or symptoms that may be related to COVID-19 74 min pt exam, chart review, > 50% of time spent with exam, chart review, pt c are coordination JENNIFER LEONARD MD Mar 02, 2020 15:09
[2020-03-02] MEDS ORDERED: hydrALAZINE 20 MG/ML VIAL. IVP PRN (15:30)
[2020-03-02] MEDS ORDERED: cloNIDine HCL 0.2 MG TABLET PO PRN (15:45)
[2020-03-02 15:57] VITALS: BP 189/99
[2020-03-02] MEDS ORDERED: cloNIDine HCL 0.1 MG TABLET PO ONE (16:00)
[2020-03-02] MEDS: amLODIPine BESYLATE 10 MG TABLET PO SCH (16:15)
[2020-03-02] MEDS: LISINOPRIL 20 MG TABLET PO SCH (16:15)
[2020-03-02] MEDS ORDERED: NAPROXEN 500 MG TABLET PO PRN (16:45)
[2020-03-02] MEDS ORDERED: DOCUSATE SODIUM 100 MG CAPSULE. PO PRN (17:00)
[2020-03-02] MEDS ORDERED: 0.9 % SODIUM CHLORIDE 10 ML DISP.SYRIN. IV PRN (17:00)
[2020-03-02] MEDS ORDERED: ONDANSETRON PF 4 MG/2 ML VIAL. IV PRN (17:00)
[2020-03-02] MEDS ORDERED: guaiFENesin ORAL 200 MG/10 ML LIQUID. PO PRN (17:00)
[2020-03-02] MEDS ORDERED: ALBUTEROL SULFATE 2.5 MG/3 ML NEBU. NEB PRN (17:00)
[2020-03-02] MEDS ORDERED: ACETAMINOPHEN 325 MG TABLET. PO PRN (17:00)
[2020-03-02] MEDS ORDERED: MAG HYDROX/ALUMINUM HYD/SIMETH 30 ML ORAL.SUSP PO PRN (17:00)
[2020-03-02] MEDS: CARVEDILOL 12.5 MG TABLET. PO SCH (17:12)
--- NOTE | 2020-03-02 17:33 | CONS ---
DATE OF CONSULTATION: PULMONARY CONSULTATION ATTENDING PHYSICIAN: Dr. Solomon. REASON FOR CONSULTATION: Cough. HISTORY OF PRESENT ILLNESS: The patient is a 59-year-old male who has no significant tobacco history. No history of asthma. He was brought into the hospital with nonproductive cough for the last 2 days. He said there is no fever or chills. No chest pains and no shortness of breath. No headaches, no nausea, vomiting, no diarrhea. He did complain of stiffness in his left lower back. The patient has a history of left heart catheterization from about 16 months ago, which showed 20% lesion in LAD. Otherwise, no significant coronary artery disease. He has a history of some lymphedema of his lower extremities. His chest x-ray was clear. I have been asked to see him for further evaluation. COVID testing was obtained in the ER. PAST MEDICAL HISTORY: Significant for hypertension, hyperlipidemia, history of mild CAD with 20% lesion to LAD, history of lower extremity lymphedema, history of osteoarthritis, nephrolithiasis and diabetes. PAST SURGICAL HISTORY: Left heart catheterization. FAMILY HISTORY: Hypertension. SOCIAL HISTORY: Nonsmoker and nonalcoholic. ALLERGIES: None. CURRENT MEDICATIONS: Reviewed as listed in the MRAD. REVIEW OF SYSTEMS: Twelve-point system obtained. Pertinent positives discussed in my history of present illness, otherwise noncontributory. All systems that were negative were reviewed as well. PHYSICAL EXAMINATION: On examination, which was done via telemedicine. VITAL SIGNS: His blood pressure was on the high side 189/99, pulse ox 96% on room air, afebrile. NECK: With no JVD. SKIN: No obvious skin rash. EXTREMITIES: With some lymphedema. LABORATORY DATA: Reviewed. White cell count 7.8, hemoglobin 14.5 and platelets of 148. Troponin is 0.073. Chest x-ray is clear. His BUN and creatinine 26 and 1.1. BNP is 219. IMPRESSION: 1. Mild nonproductive cough with no obvious fever and no definite infiltrates. Likely viral bronchitis. Clinical suspicion for COVID-19 is less. There is no obvious COVID-19 exposure. 2. No chest pains. 3. No significant history of tobacco use or asthma. RECOMMENDATIONS: 1. From a pulmonary standpoint, I would add empiric antibiotic. 2. Clinically less suspicion for COVID-19 infection. If COVID test is negative, he could be discharged home. 3. Continue isolation for COVID-19 until results are back. 4. DVT prophylaxis. 5. Discussed with RN and this consultation was performed via telemedicine. PRIMITIVO VAIL MD DR: ELINOR/marilou JOB#: [id number] / [id number]
[2020-03-02] MEDS: metFORMIN 500 MG TABLET PO SCH (17:39)
[2020-03-02] MEDS: DOXYCYCLINE HYCLATE 100 MG TABLET PO SCH (18:21)
[2020-03-02 19:00] VITALS: BP 162/75
[2020-03-02] MEDS ORDERED: ATORVASTATIN CALCIUM 20 MG TABLET PO SCH (21:00)
[2020-03-02] MEDS ORDERED: NON FORMULARY ITEM (Metoprolol Tartrate 1 TAB) PO SCH (21:00)
[2020-03-02] MEDS ORDERED: ENOXAPARIN 40 MG/0.4 ML SYRINGE. SQ SCH (21:00)
[2020-03-03 00:04] VITALS: BP 159/83
[2020-03-03 03:20] VITALS: BP 159/79
[2020-03-03 06:09] LABS: HEMOGLOBIN A1C 8.6 % (4.8-5.6)
--- NOTE | 2020-03-03 07:26 | NUR ---
IP: Pt is COVID negative and may be removed from isolation.
[2020-03-03 07:30] VITALS: BP 169/82
[2020-03-03] MEDS ORDERED: ASPIRIN ENTERIC COATED 81 MG TABLET.DR. PO SCH (08:00)
[2020-03-03] MEDS ORDERED: POTASSIUM CHLORIDE 10 MEQ TABLET.ER. PO SCH (08:00)
[2020-03-03] MEDS: DOXYCYCLINE HYCLATE 100 MG TABLET PO SCH (08:46)
[2020-03-03] MEDS: LISINOPRIL 20 MG TABLET PO SCH (08:46)
[2020-03-03] MEDS: amLODIPine BESYLATE 10 MG TABLET PO SCH (08:47)
[2020-03-03] MEDS: metFORMIN 500 MG TABLET PO SCH (08:48)
[2020-03-03] MEDS: CARVEDILOL 12.5 MG TABLET. PO SCH (08:48)
--- NOTE | 2020-03-03 08:55 | PDOC ---
FAIZAN HORAN HATCHERY LABORER 03/03/20 0855: CARDIO Progress Notes Date and Time Date of Service 03/03/2020 Time of Evaluation 1110 Subjective Subjective: No Chest Pain, No shortness of breath, No Palpitations, Other (lower back pain better) Vitals Vitals Vital Signs Date Time Temp Pulse Resp B/P (MAP) Pulse Ox O2 Delivery O2 Flow Rate FiO2 03/03/20 08:48 81 169/82 03/03/20 07:30 98.2 14 96 Room Air 98.2 Weight Weight [ ] Input and Output Intake and Output Intake and Output 03/03/20 07:00 Intake Total 330 ml Balance 330 ml Intake Oral 330 ml # Voids 2 Laboratory Labs Laboratory Tests Test 03/02/20 11:36 03/02/20 11:42 03/02/20 15:45 03/02/20 17:03 Urine Collection Type Unknown Urine Color Yellow Urine Clarity Clear Urine pH 6.0 (<5.0-8.0) Urine Specific [place] 1.020 (1.000-1.030) Urine Protein 100 mg/dL (NEG-TRACE) Urine Glucose (UA) Negative mg/dL (NEG) Urine Ketones (Stick) Negative mg/dL (NEG) Urine Blood Negative (NEG) Urine Nitrite Negative (NEG) Urine Bilirubin Negative (NEG) Urine Urobilinogen Dipstick 1.0 mg/dL (0.2 mg/dL) Urine Leukocyte Esterase Negative (NEG) Urine RBC Rare /HPF (0-2) Urine WBC 0 /HPF (0-4) Urine Squamous Epithelial Cells Few /LPF Urine Bacteria 0 /HPF (0-FEW) White Blood Count 7.8 x10^3/uL (4.0-11.0) Red Blood Count 5.23 x10^6/uL (4.30-5.70) Hemoglobin 14.5 g/dL (13.0-17.5) Hematocrit 43.7 % (39.0-53.0) Mean Corpuscular Volume 84 fL (79-100) Mean Corpuscular Hemoglobin 28 pg (25-35) Mean Corpuscular Hemoglobin Concent 33 g/dL (31-37) Red Cell Distribution Width 15.3 % (11.5-14.5) Platelet Count 148 x10^3/uL (140-400) Neutrophils (%) (Auto) 67 % (31-73) Lymphocytes (%) (Auto) 20 % (24-48) Monocytes (%) (Auto) 7 % (0-9) Eosinophils (%) (Auto) 4 % (0-3) Basophils (%) (Auto) 1 % (0-3) Neutrophils # (Auto) 5.2 x10^3/uL (1.8-7.7) Lymphocytes # (Auto) 1.6 x10^3/uL (1.0-4.8) Monocytes # (Auto) 0.6 x10^3/uL (0.0-1.1) Eosinophils # (Auto) 0.3 x10^3/uL (0.0-0.7) Basophils # (Auto) 0.1 x10^3/uL (0.0-0.2) D-Dimer (Rachell) 0.66 ug/mlFEU (0.00-0.50) Sodium Level 142 mmol/L (136-145) Potassium Level 3.5 mmol/L (3.5-5.1) Chloride Level 106 mmol/L (98-107) Carbon Dioxide Level 27 mmol/L (21-32) Anion Gap 9 (6-14) Blood Urea Nitrogen 26 mg/dL (8-26) Creatinine 1.1 mg/dL (0.7-1.3) Estimated GFR (Cockcroft-Gault) 82.3 BUN/Creatinine Ratio 24 (6-20) Glucose Level 127 mg/dL (70-99) Hemoglobin A1c 8.6 % (4.8-5.6) Lactic Acid Level 1.9 mmol/L (0.4-2.0) Calcium Level 8.2 mg/dL (8.5-10.1) Magnesium Level 2.0 mg/dL (1.8-2.4) Total Bilirubin 0.3 mg/dL (0.2-1.0) Aspartate Amino Transf (AST/SGOT) 16 U/L (15-37) Alanine Aminotransferase (ALT/SGPT) 30 U/L (16-63) Alkaline Phosphatase 114 U/L (46-116) Creatine Kinase 73 U/L (39-308) Troponin I Quantitative 0.073 ng/mL (0.000-0.055) 0.067 ng/mL (0.000-0.055) EN-Lul-K-Type Natriuretic Peptide 219 pg/mL (0-124) Total Protein 6.8 g/dL (6.4-8.2) Albumin 3.5 g/dL (3.4-5.0) Albumin/Globulin Ratio 1.1 (1.0-1.7) Lipase 69 U/L (73-393) Thyroid Stimulating Hormone (TSH) 1.156 uIU/mL (0.358-3.74) Glucose (Fingerstick) 89 mg/dL (70-99) Test 03/02/20 18:40 03/02/20 21:08 03/03/20 04:00 03/03/20 07:44 Troponin I Quantitative 0.047 ng/mL (0.000-0.055) Glucose (Fingerstick) 195 mg/dL (70-99) 145 mg/dL (70-99) Triglycerides Level 196 mg/dL (0-150) Cholesterol Level 125 mg/dL (0-200) LDL Cholesterol, Calculated 55 mg/dL (0-100) VLDL Cholesterol, Calculated 39 mg/dL (0-40) Non-HDL Cholesterol Calculated 94 mg/dL (0-129) HDL Cholesterol 31 mg/dL (40-60) Cholesterol/HDL Ratio 4.0 Physical Exam HEENT: Neck Supple W Full Motion Chest: Symmetric LUNGS: Clear to Auscultation Heart: RRR (SR no ectopies) Neurology: alert, oriented, follow commands Assessment Assessment 1. Left lower back: No chest pain. possible MSK with heavy lifting Friday. Better today 2. HTN urgency: due to inadequate meds. BP better after adjustment 3. Mild troponin elevation: peaked at 0.073. possibly type 2, demand mediated due to uncontrolled HTN Doubt ACS. EKG SR without acute changes by comparison. 4. HLP: TG slightly high otherwise on goal 5. DM2: not controlled with A1C at 8.6, per PCP 6. Obesity 7. Chronic LE lymphedema with recurring cellultiis: S/P biopsy by a communications equipment supervisor few days ago. Completed antibiotics recently Recommendations 1. Covid negative. TTE today. May DC afterwards. Follow up in office as marian edubushra 2. DC with current inpt BP regimen with addition of low dose hydralazine. BID HBPM x1 wk and discussed about parameters and to call our office next week to report BP diary. 3. Continue ASA and lipitor. Dietitian consult for DASH diet, wt loss. 4. Will consider for outpt renal duplex if BP remains uncontrolled. Consider changing aleve to PRN. JOSIAS RENO MD 03/03/20 1607: CARDIO Progress Notes Plan Plan Pt. seen and examined. Agree with above PROFILING MACHINE SET UP OPERATOR note. Echo wnl. Discussed with Dr. Hanna. Ok for DC. thanks FAIZAN HORAN HATCHERY LABORER Mar 03, 2020 08:55 JOSIAS RENO MD Mar 03, 2020 16:07
[2020-03-03] MEDS ORDERED: hydroCHLOROthiazide 25 MG TABLET PO SCH (09:00)
[2020-03-03] MEDS ORDERED: ASPIRIN CHEWABLE 81 MG TABLET. PO SCH (09:00)
[2020-03-03] MEDS ORDERED: BENAZEPRIL PO SCH (09:00)
[2020-03-03] MEDS ORDERED: [UNRECOGNIZED DRUG - OTHER] PO SCH (09:00)
[2020-03-03] MEDS ORDERED: EZETIMIBE 10 MG TABLET. PO SCH (09:00)
[2020-03-03] MEDS ORDERED: AMLODIPINE BESYLATE PO SCH (09:00)
--- NOTE | 2020-03-03 10:19 | NUR ---
Patient given handouts regarding diet for diabetes as well as hypertension.
--- NOTE | 2020-03-03 10:34 | PDOC ---
PROGRESS NOTES Chief Complaint Chief Complaint A/P: Shortness of breath - atypical chest pain equivalent, anxiety related and pain related CAD with 20% lesion to LAD otherwise no significant disease. LE lymphedema Left lower back and chest pain. possible MSK with heavy lifting Friday. He does have hx of nephrolithiasis. HTN urgency -meds adjusted by cardiology Mild troponin elevation - 0.073. possibly type 2, demand mediated due to uncontrolled HTN Doubt ACS. EKG SR without acute changes by comparison. DM2 Obesity Chronic LE lymphedema with recurring cellultiis: S/P biopsy by a clinical lab technologist few days ago. Completed antibiotics recently Concern for covid-19 symptoms - negative Coronary artery disease Hyperlipidemia Degenerative disc disease// moderate at L4-5 and mild at L3-4 and L5-S1. Mild bilateral hip osteoarthritis. HX LEUKEMIA History of Present Illness History of Present Illness Mr Méndez is a 59 yo M w/ PMHx HTN, HLD, CAD, chronic lymphedema, OA, DM2 who presented to hospital with nonproductive cough for 2 days. No fever or chills. No chest pains and no shortness of breath. No headaches, no nausea, vomiting, no diarrhea. He did complain of stiffness in his left lower back. His chest x- ray was clear. COVID testing was obtained in the ER which was negative. Pulmonology and cardiology consulted. Feeling improved today. No CP or SOB. No hypoxia. no cough. Plans for echo today and transfer out of COVID observation unit. BP meds adjusted by cardiology then home. Vitals Vitals Vital Signs Date Time Temp Pulse Resp B/P (MAP) Pulse Ox O2 Delivery O2 Flow Rate FiO2 03/03/20 08:48 81 169/82 03/03/20 08:00 Room Air 03/03/20 07:30 98.2 14 96 98.2 Physical Exam General: Alert, Oriented X3, Cooperative, No acute distress Heart: Regular rate (SR), Normal S1, Normal S2, No murmurs Lungs: Clear Abdomen: Soft, No tenderness Extremities: No cyanosis, Other (2-3+ bilateral pedal edema. Leg wraps in place, no wounds, no claudication symptoms. ) Skin: No rashes Labs LABS Laboratory Tests Test 03/02/20 11:25 03/02/20 11:36 03/02/20 11:42 03/02/20 15:45 Coronavirus (COVID-19)(PCR) See separate report Urine Collection Type Unknown Urine Color Yellow Urine Clarity Clear Urine pH 6.0 (<5.0-8.0) Urine Specific [place] 1.020 (1.000-1.030) Urine Protein 100 mg/dL (NEG-TRACE) Urine Glucose (UA) Negative mg/dL (NEG) Urine Ketones (Stick) Negative mg/dL (NEG) Urine Blood Negative (NEG) Urine Nitrite Negative (NEG) Urine Bilirubin Negative (NEG) Urine Urobilinogen Dipstick 1.0 mg/dL (0.2 mg/dL) Urine Leukocyte Esterase Negative (NEG) Urine RBC Rare /HPF (0-2) Urine WBC 0 /HPF (0-4) Urine Squamous Epithelial Cells Few /LPF Urine Bacteria 0 /HPF (0-FEW) White Blood Count 7.8 x10^3/uL (4.0-11.0) Red Blood Count 5.23 x10^6/uL (4.30-5.70) Hemoglobin 14.5 g/dL (13.0-17.5) Hematocrit 43.7 % (39.0-53.0) Mean Corpuscular Volume 84 fL (79-100) Mean Corpuscular Hemoglobin 28 pg (25-35) Mean Corpuscular Hemoglobin Concent 33 g/dL (31-37) Red Cell Distribution Width 15.3 % (11.5-14.5) Platelet Count 148 x10^3/uL (140-400) Neutrophils (%) (Auto) 67 % (31-73) Lymphocytes (%) (Auto) 20 % (24-48) Monocytes (%) (Auto) 7 % (0-9) Eosinophils (%) (Auto) 4 % (0-3) Basophils (%) (Auto) 1 % (0-3) Neutrophils # (Auto) 5.2 x10^3/uL (1.8-7.7) Lymphocytes # (Auto) 1.6 x10^3/uL (1.0-4.8) Monocytes # (Auto) 0.6 x10^3/uL (0.0-1.1) Eosinophils # (Auto) 0.3 x10^3/uL (0.0-0.7) Basophils # (Auto) 0.1 x10^3/uL (0.0-0.2) D-Dimer (Rachell) 0.66 ug/mlFEU (0.00-0.50) Sodium Level 142 mmol/L (136-145) Potassium Level 3.5 mmol/L (3.5-5.1) Chloride Level 106 mmol/L (98-107) Carbon Dioxide Level 27 mmol/L (21-32) Anion Gap 9 (6-14) Blood Urea Nitrogen 26 mg/dL (8-26) Creatinine 1.1 mg/dL (0.7-1.3) Estimated GFR (Cockcroft-Gault) 82.3 BUN/Creatinine Ratio 24 (6-20) Glucose Level 127 mg/dL (70-99) Hemoglobin A1c 8.6 % (4.8-5.6) Lactic Acid Level 1.9 mmol/L (0.4-2.0) Calcium Level 8.2 mg/dL (8.5-10.1) Magnesium Level 2.0 mg/dL (1.8-2.4) Total Bilirubin 0.3 mg/dL (0.2-1.0) Aspartate Amino Transf (AST/SGOT) 16 U/L (15-37) Alanine Aminotransferase (ALT/SGPT) 30 U/L (16-63) Alkaline Phosphatase 114 U/L (46-116) Creatine Kinase 73 U/L (39-308) Troponin I Quantitative 0.073 ng/mL (0.000-0.055) 0.067 ng/mL (0.000-0.055) QN-Lov-P-Type Natriuretic Peptide 219 pg/mL (0-124) Total Protein 6.8 g/dL (6.4-8.2) Albumin 3.5 g/dL (3.4-5.0) Albumin/Globulin Ratio 1.1 (1.0-1.7) Lipase 69 U/L (73-393) Thyroid Stimulating Hormone (TSH) 1.156 uIU/mL (0.358-3.74) Test 03/02/20 17:03 03/02/20 18:40 03/02/20 21:08 03/03/20 04:00 Glucose (Fingerstick) 89 mg/dL (70-99) 195 mg/dL (70-99) Troponin I Quantitative 0.047 ng/mL (0.000-0.055) Triglycerides Level 196 mg/dL (0-150) Cholesterol Level 125 mg/dL (0-200) LDL Cholesterol, Calculated 55 mg/dL (0-100) VLDL Cholesterol, Calculated 39 mg/dL (0-40) Non-HDL Cholesterol Calculated 94 mg/dL (0-129) HDL Cholesterol 31 mg/dL (40-60) Cholesterol/HDL Ratio 4.0 Test 03/03/20 07:44 Glucose (Fingerstick) 145 mg/dL (70-99) Assessment and Plan Assessmemt and Plan Problems Medical Problems: (1) Elevated troponin Status: Acute (2) Hypertensive urgency Status: Acute (3) Suspected COVID-19 virus infection Status: Acute Comment Review of Relevant I have reviewed the following items deborah (where applicable) has been applied. Labs Laboratory Tests Test 03/02/20 11:25 03/02/20 11:36 03/02/20 11:42 03/02/20 15:45 Coronavirus (COVID-19)(PCR) See separate report Urine Collection Type Unknown Urine Color Yellow Urine Clarity Clear Urine pH 6.0 (<5.0-8.0) Urine Specific [place] 1.020 (1.000-1.030) Urine Protein 100 mg/dL (NEG-TRACE) Urine Glucose (UA) Negative mg/dL (NEG) Urine Ketones (Stick) Negative mg/dL (NEG) Urine Blood Negative (NEG) Urine Nitrite Negative (NEG) Urine Bilirubin Negative (NEG) Urine Urobilinogen Dipstick 1.0 mg/dL (0.2 mg/dL) Urine Leukocyte Esterase Negative (NEG) Urine RBC Rare /HPF (0-2) Urine WBC 0 /HPF (0-4) Urine Squamous Epithelial Cells Few /LPF Urine Bacteria 0 /HPF (0-FEW) White Blood Count 7.8 x10^3/uL (4.0-11.0) Red Blood Count 5.23 x10^6/uL (4.30-5.70) Hemoglobin 14.5 g/dL (13.0-17.5) Hematocrit 43.7 % (39.0-53.0) Mean Corpuscular Volume 84 fL (79-100) Mean Corpuscular Hemoglobin 28 pg (25-35) Mean Corpuscular Hemoglobin Concent 33 g/dL (31-37) Red Cell Distribution Width 15.3 % (11.5-14.5) Platelet Count 148 x10^3/uL (140-400) Neutrophils (%) (Auto) 67 % (31-73) Lymphocytes (%) (Auto) 20 % (24-48) Monocytes (%) (Auto) 7 % (0-9) Eosinophils (%) (Auto) 4 % (0-3) Basophils (%) (Auto) 1 % (0-3) Neutrophils # (Auto) 5.2 x10^3/uL (1.8-7.7) Lymphocytes # (Auto) 1.6 x10^3/uL (1.0-4.8) Monocytes # (Auto) 0.6 x10^3/uL (0.0-1.1) Eosinophils # (Auto) 0.3 x10^3/uL (0.0-0.7) Basophils # (Auto) 0.1 x10^3/uL (0.0-0.2) D-Dimer (Rachell) 0.66 ug/mlFEU (0.00-0.50) Sodium Level 142 mmol/L (136-145) Potassium Level 3.5 mmol/L (3.5-5.1) Chloride Level 106 mmol/L (98-107) Carbon Dioxide Level 27 mmol/L (21-32) Anion Gap 9 (6-14) Blood Urea Nitrogen 26 mg/dL (8-26) Creatinine 1.1 mg/dL (0.7-1.3) Estimated GFR (Cockcroft-Gault) 82.3 BUN/Creatinine Ratio 24 (6-20) Glucose Level 127 mg/dL (70-99) Hemoglobin A1c 8.6 % (4.8-5.6) Lactic Acid Level 1.9 mmol/L (0.4-2.0) Calcium Level 8.2 mg/dL (8.5-10.1) Magnesium Level 2.0 mg/dL (1.8-2.4) Total Bilirubin 0.3 mg/dL (0.2-1.0) Aspartate Amino Transf (AST/SGOT) 16 U/L (15-37) Alanine Aminotransferase (ALT/SGPT) 30 U/L (16-63) Alkaline Phosphatase 114 U/L (46-116) Creatine Kinase 73 U/L (39-308) Troponin I Quantitative 0.073 ng/mL (0.000-0.055) 0.067 ng/mL (0.000-0.055) JB-Pdi-S-Type Natriuretic Peptide 219 pg/mL (0-124) Total Protein 6.8 g/dL (6.4-8.2) Albumin 3.5 g/dL (3.4-5.0) Albumin/Globulin Ratio 1.1 (1.0-1.7) Lipase 69 U/L (73-393) Thyroid Stimulating Hormone (TSH) 1.156 uIU/mL (0.358-3.74) Test 03/02/20 17:03 03/02/20 18:40 03/02/20 21:08 03/03/20 04:00 Glucose (Fingerstick) 89 mg/dL (70-99) 195 mg/dL (70-99) Troponin I Quantitative 0.047 ng/mL (0.000-0.055) Triglycerides Level 196 mg/dL (0-150) Cholesterol Level 125 mg/dL (0-200) LDL Cholesterol, Calculated 55 mg/dL (0-100) VLDL Cholesterol, Calculated 39 mg/dL (0-40) Non-HDL Cholesterol Calculated 94 mg/dL (0-129) HDL Cholesterol 31 mg/dL (40-60) Cholesterol/HDL Ratio 4.0 Test 03/03/20 07:44 Glucose (Fingerstick) 145 mg/dL (70-99) Laboratory Tests Test 03/02/20 11:25 03/02/20 11:36 03/02/20 11:42 03/02/20 15:45 Coronavirus (COVID-19)(PCR) See separate report Urine Collection Type Unknown Urine Color Yellow Urine Clarity Clear Urine pH 6.0 (<5.0-8.0) Urine Specific [place] 1.020 (1.000-1.030) Urine Protein 100 mg/dL (NEG-TRACE) Urine Glucose (UA) Negative mg/dL (NEG) Urine Ketones (Stick) Negative mg/dL (NEG) Urine Blood Negative (NEG) Urine Nitrite Negative (NEG) Urine Bilirubin Negative (NEG) Urine Urobilinogen Dipstick 1.0 mg/dL (0.2 mg/dL) Urine Leukocyte Esterase Negative (NEG) Urine RBC Rare /HPF (0-2) Urine WBC 0 /HPF (0-4) Urine Squamous Epithelial Cells Few /LPF Urine Bacteria 0 /HPF (0-FEW) White Blood Count 7.8 x10^3/uL (4.0-11.0) Red Blood Count 5.23 x10^6/uL (4.30-5.70) Hemoglobin 14.5 g/dL (13.0-17.5) Hematocrit 43.7 % (39.0-53.0) Mean Corpuscular Volume 84 fL (79-100) Mean Corpuscular Hemoglobin 28 pg (25-35) Mean Corpuscular Hemoglobin Concent 33 g/dL (31-37) Red Cell Distribution Width 15.3 % (11.5-14.5) Platelet Count 148 x10^3/uL (140-400) Neutrophils (%) (Auto) 67 % (31-73) Lymphocytes (%) (Auto) 20 % (24-48) Monocytes (%) (Auto) 7 % (0-9) Eosinophils (%) (Auto) 4 % (0-3) Basophils (%) (Auto) 1 % (0-3) Neutrophils # (Auto) 5.2 x10^3/uL (1.8-7.7) Lymphocytes # (Auto) 1.6 x10^3/uL (1.0-4.8) Monocytes # (Auto) 0.6 x10^3/uL (0.0-1.1) Eosinophils # (Auto) 0.3 x10^3/uL (0.0-0.7) Basophils # (Auto) 0.1 x10^3/uL (0.0-0.2) D-Dimer (Rachell) 0.66 ug/mlFEU (0.00-0.50) Sodium Level 142 mmol/L (136-145) Potassium Level 3.5 mmol/L (3.5-5.1) Chloride Level 106 mmol/L (98-107) Carbon Dioxide Level 27 mmol/L (21-32) Anion Gap 9 (6-14) Blood Urea Nitrogen 26 mg/dL (8-26) Creatinine 1.1 mg/dL (0.7-1.3) Estimated GFR (Cockcroft-Gault) 82.3 BUN/Creatinine Ratio 24 (6-20) Glucose Level 127 mg/dL (70-99) Hemoglobin A1c 8.6 % (4.8-5.6) Lactic Acid Level 1.9 mmol/L (0.4-2.0) Calcium Level 8.2 mg/dL (8.5-10.1) Magnesium Level 2.0 mg/dL (1.8-2.4) Total Bilirubin 0.3 mg/dL (0.2-1.0) Aspartate Amino Transf (AST/SGOT) 16 U/L (15-37) Alanine Aminotransferase (ALT/SGPT) 30 U/L (16-63) Alkaline Phosphatase 114 U/L (46-116) Creatine Kinase 73 U/L (39-308) Troponin I Quantitative 0.073 ng/mL (0.000-0.055) 0.067 ng/mL (0.000-0.055) YM-Mwv-H-Type Natriuretic Peptide 219 pg/mL (0-124) Total Protein 6.8 g/dL (6.4-8.2) Albumin 3.5 g/dL (3.4-5.0) Albumin/Globulin Ratio 1.1 (1.0-1.7) Lipase 69 U/L (73-393) Thyroid Stimulating Hormone (TSH) 1.156 uIU/mL (0.358-3.74) Test 03/02/20 17:03 03/02/20 18:40 03/02/20 21:08 03/03/20 04:00 Glucose (Fingerstick) 89 mg/dL (70-99) 195 mg/dL (70-99) Troponin I Quantitative 0.047 ng/mL (0.000-0.055) Triglycerides Level 196 mg/dL (0-150) Cholesterol Level 125 mg/dL (0-200) LDL Cholesterol, Calculated 55 mg/dL (0-100) VLDL Cholesterol, Calculated 39 mg/dL (0-40) Non-HDL Cholesterol Calculated 94 mg/dL (0-129) HDL Cholesterol 31 mg/dL (40-60) Cholesterol/HDL Ratio 4.0 Test 03/03/20 07:44 Glucose (Fingerstick) 145 mg/dL (70-99) Medications Current Medications Aspirin (Aspirin Chewable) 324 mg 1X ONCE PO Last administered on 03/02/20at 11:53; Start 03/02/20 at 10:30; Stop 03/02/20 at 10:31; Status DC Nitroglycerin (Nitrostat) 0.4 mg PRN Q5MIN PRN SL CP RATING > 1/10 Last administered on 03/02/20at 12:08; Start 03/02/20 at 10:30; Stop 03/03/20 at 10:29 Hydralazine HCl (Apresoline Inj) 10 mg PRN Q4HRS PRN IVP ELEVATED BP, SEE COMMENTS; Start 03/02/20 at 15:30 Amlodipine Besylate (Norvasc) 10 mg DAILY PO Last administered on 03/03/20at 08:47; Start 03/02/20 at 16:00 Lisinopril (Prinivil) 40 mg DAILY PO Last administered on 03/03/20at 08:46; Start 03/02/20 at 16:00 Hydrochlorothiazide (Hydrodiuril) 25 mg DAILY PO Last administered on 03/03/20at 08:47; Start 03/03/20 at 09:00 Carvedilol (Coreg) 12.5 mg BIDWMEALS PO Last administered on 03/03/20at 08:48; Start 03/02/20 at 17:00 Clonidine HCl (Catapres) 0.2 mg PRN Q6HRS PRN PO HYPERTENSION; Start 03/02/20 at 15:45 Clonidine HCl (Catapres) 0.2 mg 1X ONCE PO Last administered on 03/02/20at 16:16; Start 03/02/20 at 16:00; Stop 03/02/20 at 16:01; Status DC Atorvastatin Calcium (Lipitor) 20 mg QHS PO Last administered on 03/02/20at 20:39; Start 03/02/20 at 21:00 Aspirin (Ecotrin) 81 mg DAILYWBKFT PO Last administered on 03/03/20at 08:46; Start 03/03/20 at 08:00 Aspirin (Aspirin Chewable) 81 mg DAILY PO ; Start 03/03/20 at 09:00; Status UNV EZETIMIBE (Zetia) 10 mg DAILY PO Last administered on 03/03/20at 08:47; Start 03/03/20 at 09:00 Naproxen (Naprosyn) 500 mg PRN BID PRN PO PAIN; Start 03/02/20 at 16:45 Non-Formulary Medication (Amlodipine Besylate/ Benazepril (Amlodipine-Benazepril 10-20 Mg)) 1 cap DAILY PO ; Start 03/03/20 at 09:00; Status UNV Metformin HCl (Glucophage) 1,000 mg BIDWMEALS PO Last administered on 03/03/20at 08:48; Start 03/02/20 at 17:30 Non-Formulary Medication (Metoprolol Tartrate ) 1 tab BID PO ; Start 03/02/20 at 21:00; Stop 03/02/20 at 16:49; Status DC Potassium Chloride (Klor-Con) 10 meq DAILYWBKFT PO Last administered on 03/03/20at 08:47; Start 03/03/20 at 08:00 Repaglinide (Prandin) 1 mg TIDAC PO ; Start 03/03/20 at 17:30 Sodium Chloride (Normal Saline Flush) 3 ml QSHIFT PRN IV AFTER MEDS AND BLOOD DRAWS; Start 03/02/20 at 17:00 Ondansetron HCl (Zofran) 4 mg PRN Q4HRS PRN IV NAUSEA/VOMITING; Start 03/02/20 at 17:00 Acetaminophen (Tylenol) 650 mg PRN Q4HRS PRN PO TEMP OVER 100.4F OR MILD PAIN; Start 03/02/20 at 17:00 Al Hydroxide/Mg Hydroxide (Mylanta Plus Xs) 30 ml PRN DAILY PRN PO HEARTBURN / GAS; Start 03/02/20 at 17:00 Docusate Sodium (Colace) 100 mg PRN BID PRN PO CONSTIPATION; Start 03/02/20 at 17:00 Albuterol Sulfate (Ventolin Neb Soln) 2.5 mg PRN Q4HRS PRN NEB SHORTNESS OF BREATH; Start 03/02/20 at 17:00 Guaifenesin (Robitussin) 200 mg PRN Q4HRS PRN PO COUGH; Start 03/02/20 at 17:00 Enoxaparin Sodium (Lovenox 40mg Syringe) 40 mg Q24H SQ Last administered on 03/02/20at 20:39; Start 03/02/20 at 21:00 Doxycycline Hyclate (Vibra-Tab) 100 mg BID PO Last administered on 03/03/20at 08:46; Start 03/02/20 at 18:00 Active Scripts Active [Fluconazole] 100 MG Tablet 200 Mg PO DAILY 7 Days Klor-Con 10 (Potassium Chloride) 10 Meq Tablet.er 1 Tab PO DAILY 30 Days Naproxen 500 Mg Tablet 1 Tab PO BID PRN Reported Metformin Hcl 1,000 Mg Tablet 1,000 Mg PO BID Lantus (Insulin Glargine,Hum.rec.anlog) 100 Unit/1 Ml Vial 100 Unit SQ HS Aspirin 81 Mg Tab.chew 1 Tab PO DAILY Repaglinide 1 Mg Tablet 1 Mg PO TID Zetia (Ezetimibe) 10 Mg Tablet 1 Tab PO DAILY Metoprolol Tartrate 100 Mg Tablet 1 Tab PO BID Amlodipine-Benazepril 10-20 Mg (Amlodipine Besylate/Benazepril) 1 Each Capsule 1 Cap PO DAILY Vitals/I & O Vital Sign - Last 24 Hours 03/02/20 03/02/20 03/02/20 03/02/20 10:45 11:15 11:45 11:53 Pulse 82 84 80 80 Resp 20 18 B/P (MAP) 190/89 (122) 201/101 (134) 198/97 (130) 198/97 Pulse Ox 98 98 98 O2 Delivery Room Air Room Air Room Air 03/02/20 03/02/20 03/02/20 03/02/20 12:01 12:08 12:15 12:30 Pulse 83 85 80 80 Resp 18 16 B/P (MAP) 167/91 144/73 151/82 (105) 180/92 (121) Pulse Ox 97 99 O2 Delivery Room Air Room Air 03/02/20 03/02/20 03/02/20 03/02/20 13:00 13:30 14:00 14:30 Pulse 78 78 78 82 Resp 16 16 16 18 B/P (MAP) 187/88 (121) 193/101 (131) 198/104 (135) 180/94 (122) Pulse Ox 99 99 99 99 O2 Delivery Room Air Room Air Room Air Room Air 03/02/20 03/02/20 03/02/20 03/02/20 15:45 15:57 16:15 16:15 Temp 98.1 98.1 Pulse 82 82 82 Resp 16 B/P (MAP) 189/99 (129) 189/99 189/99 Pulse Ox 96 O2 Delivery Room Air Room Air 03/02/20 03/02/20 03/02/20 03/02/20 16:16 17:12 19:00 20:00 Temp 98.9 98.9 Pulse 82 81 64 Resp 18 B/P (MAP) 189/99 145/81 162/75 (104) Pulse Ox 98 O2 Delivery Room Air Room Air 03/03/20 03/03/20 03/03/20 03/03/20 00:04 00:38 03:20 07:30 Temp 98.5 98.2 98.5 98.2 Pulse 86 82 81 Resp 18 18 14 B/P (MAP) 159/83 (108) 159/79 (105) 169/82 (111) Pulse Ox 97 97 96 O2 Delivery Room Air Room Air Room Air 03/03/20 03/03/20 03/03/20 03/03/20 08:00 08:46 08:47 08:48 Pulse 81 81 81 B/P (MAP) 169/82 169/82 169/82 O2 Delivery Room Air Intake and Output 03/02/20 03/02/20 03/03/20 15:00 23:00 07:00 Intake Total 330 ml Balance 330 ml AIME CORONA MD Mar 03, 2020 10:34
--- NOTE | 2020-03-03 10:37 | PDOC ---
PULMONARY PROGRESS NOTES Subjective feeling well, up in chair on room air, Denies SOA or cough, no fever overnight COVID-19 (-) Vitals Vital Signs Date Time Temp Pulse Resp B/P (MAP) Pulse Ox O2 Delivery O2 Flow Rate FiO2 03/03/20 08:48 81 169/82 03/03/20 08:00 Room Air 03/03/20 07:30 98.2 14 96 98.2 ROS: No Nausea, No Chest Pain, No Abdominal Pain, No Increase Cough General: Alert, Oriented X4 Lungs: Clear Cardiovascular: S1, S2 Abdomen: Soft, Other (obese) Neuro Exam: Alert, Oriented Extremities: No Edema Skin: Warm Labs Laboratory Tests Test 03/02/20 11:25 03/02/20 11:36 03/02/20 11:42 03/02/20 15:45 Coronavirus (COVID-19)(PCR) See separate report Urine Collection Type Unknown Urine Color Yellow Urine Clarity Clear Urine pH 6.0 (<5.0-8.0) Urine Specific [place] 1.020 (1.000-1.030) Urine Protein 100 mg/dL (NEG-TRACE) Urine Glucose (UA) Negative mg/dL (NEG) Urine Ketones (Stick) Negative mg/dL (NEG) Urine Blood Negative (NEG) Urine Nitrite Negative (NEG) Urine Bilirubin Negative (NEG) Urine Urobilinogen Dipstick 1.0 mg/dL (0.2 mg/dL) Urine Leukocyte Esterase Negative (NEG) Urine RBC Rare /HPF (0-2) Urine WBC 0 /HPF (0-4) Urine Squamous Epithelial Cells Few /LPF Urine Bacteria 0 /HPF (0-FEW) White Blood Count 7.8 x10^3/uL (4.0-11.0) Red Blood Count 5.23 x10^6/uL (4.30-5.70) Hemoglobin 14.5 g/dL (13.0-17.5) Hematocrit 43.7 % (39.0-53.0) Mean Corpuscular Volume 84 fL (79-100) Mean Corpuscular Hemoglobin 28 pg (25-35) Mean Corpuscular Hemoglobin Concent 33 g/dL (31-37) Red Cell Distribution Width 15.3 % (11.5-14.5) Platelet Count 148 x10^3/uL (140-400) Neutrophils (%) (Auto) 67 % (31-73) Lymphocytes (%) (Auto) 20 % (24-48) Monocytes (%) (Auto) 7 % (0-9) Eosinophils (%) (Auto) 4 % (0-3) Basophils (%) (Auto) 1 % (0-3) Neutrophils # (Auto) 5.2 x10^3/uL (1.8-7.7) Lymphocytes # (Auto) 1.6 x10^3/uL (1.0-4.8) Monocytes # (Auto) 0.6 x10^3/uL (0.0-1.1) Eosinophils # (Auto) 0.3 x10^3/uL (0.0-0.7) Basophils # (Auto) 0.1 x10^3/uL (0.0-0.2) D-Dimer (Rachell) 0.66 ug/mlFEU (0.00-0.50) Sodium Level 142 mmol/L (136-145) Potassium Level 3.5 mmol/L (3.5-5.1) Chloride Level 106 mmol/L (98-107) Carbon Dioxide Level 27 mmol/L (21-32) Anion Gap 9 (6-14) Blood Urea Nitrogen 26 mg/dL (8-26) Creatinine 1.1 mg/dL (0.7-1.3) Estimated GFR (Cockcroft-Gault) 82.3 BUN/Creatinine Ratio 24 (6-20) Glucose Level 127 mg/dL (70-99) Hemoglobin A1c 8.6 % (4.8-5.6) Lactic Acid Level 1.9 mmol/L (0.4-2.0) Calcium Level 8.2 mg/dL (8.5-10.1) Magnesium Level 2.0 mg/dL (1.8-2.4) Total Bilirubin 0.3 mg/dL (0.2-1.0) Aspartate Amino Transf (AST/SGOT) 16 U/L (15-37) Alanine Aminotransferase (ALT/SGPT) 30 U/L (16-63) Alkaline Phosphatase 114 U/L (46-116) Creatine Kinase 73 U/L (39-308) Troponin I Quantitative 0.073 ng/mL (0.000-0.055) 0.067 ng/mL (0.000-0.055) BT-Ofn-I-Type Natriuretic Peptide 219 pg/mL (0-124) Total Protein 6.8 g/dL (6.4-8.2) Albumin 3.5 g/dL (3.4-5.0) Albumin/Globulin Ratio 1.1 (1.0-1.7) Lipase 69 U/L (73-393) Thyroid Stimulating Hormone (TSH) 1.156 uIU/mL (0.358-3.74) Test 03/02/20 17:03 03/02/20 18:40 03/02/20 21:08 03/03/20 04:00 Glucose (Fingerstick) 89 mg/dL (70-99) 195 mg/dL (70-99) Troponin I Quantitative 0.047 ng/mL (0.000-0.055) Triglycerides Level 196 mg/dL (0-150) Cholesterol Level 125 mg/dL (0-200) LDL Cholesterol, Calculated 55 mg/dL (0-100) VLDL Cholesterol, Calculated 39 mg/dL (0-40) Non-HDL Cholesterol Calculated 94 mg/dL (0-129) HDL Cholesterol 31 mg/dL (40-60) Cholesterol/HDL Ratio 4.0 Test 03/03/20 07:44 Glucose (Fingerstick) 145 mg/dL (70-99) Laboratory Tests Test 03/02/20 11:25 03/02/20 11:36 03/02/20 11:42 03/02/20 15:45 Coronavirus (COVID-19)(PCR) See separate report Urine Collection Type Unknown Urine Color Yellow Urine Clarity Clear Urine pH 6.0 (<5.0-8.0) Urine Specific [place] 1.020 (1.000-1.030) Urine Protein 100 mg/dL (NEG-TRACE) Urine Glucose (UA) Negative mg/dL (NEG) Urine Ketones (Stick) Negative mg/dL (NEG) Urine Blood Negative (NEG) Urine Nitrite Negative (NEG) Urine Bilirubin Negative (NEG) Urine Urobilinogen Dipstick 1.0 mg/dL (0.2 mg/dL) Urine Leukocyte Esterase Negative (NEG) Urine RBC Rare /HPF (0-2) Urine WBC 0 /HPF (0-4) Urine Squamous Epithelial Cells Few /LPF Urine Bacteria 0 /HPF (0-FEW) White Blood Count 7.8 x10^3/uL (4.0-11.0) Red Blood Count 5.23 x10^6/uL (4.30-5.70) Hemoglobin 14.5 g/dL (13.0-17.5) Hematocrit 43.7 % (39.0-53.0) Mean Corpuscular Volume 84 fL (79-100) Mean Corpuscular Hemoglobin 28 pg (25-35) Mean Corpuscular Hemoglobin Concent 33 g/dL (31-37) Red Cell Distribution Width 15.3 % (11.5-14.5) Platelet Count 148 x10^3/uL (140-400) Neutrophils (%) (Auto) 67 % (31-73) Lymphocytes (%) (Auto) 20 % (24-48) Monocytes (%) (Auto) 7 % (0-9) Eosinophils (%) (Auto) 4 % (0-3) Basophils (%) (Auto) 1 % (0-3) Neutrophils # (Auto) 5.2 x10^3/uL (1.8-7.7) Lymphocytes # (Auto) 1.6 x10^3/uL (1.0-4.8) Monocytes # (Auto) 0.6 x10^3/uL (0.0-1.1) Eosinophils # (Auto) 0.3 x10^3/uL (0.0-0.7) Basophils # (Auto) 0.1 x10^3/uL (0.0-0.2) D-Dimer (Rachell) 0.66 ug/mlFEU (0.00-0.50) Sodium Level 142 mmol/L (136-145) Potassium Level 3.5 mmol/L (3.5-5.1) Chloride Level 106 mmol/L (98-107) Carbon Dioxide Level 27 mmol/L (21-32) Anion Gap 9 (6-14) Blood Urea Nitrogen 26 mg/dL (8-26) Creatinine 1.1 mg/dL (0.7-1.3) Estimated GFR (Cockcroft-Gault) 82.3 BUN/Creatinine Ratio 24 (6-20) Glucose Level 127 mg/dL (70-99) Hemoglobin A1c 8.6 % (4.8-5.6) Lactic Acid Level 1.9 mmol/L (0.4-2.0) Calcium Level 8.2 mg/dL (8.5-10.1) Magnesium Level 2.0 mg/dL (1.8-2.4) Total Bilirubin 0.3 mg/dL (0.2-1.0) Aspartate Amino Transf (AST/SGOT) 16 U/L (15-37) Alanine Aminotransferase (ALT/SGPT) 30 U/L (16-63) Alkaline Phosphatase 114 U/L (46-116) Creatine Kinase 73 U/L (39-308) Troponin I Quantitative 0.073 ng/mL (0.000-0.055) 0.067 ng/mL (0.000-0.055) FK-Vxw-R-Type Natriuretic Peptide 219 pg/mL (0-124) Total Protein 6.8 g/dL (6.4-8.2) Albumin 3.5 g/dL (3.4-5.0) Albumin/Globulin Ratio 1.1 (1.0-1.7) Lipase 69 U/L (73-393) Thyroid Stimulating Hormone (TSH) 1.156 uIU/mL (0.358-3.74) Test 03/02/20 17:03 03/02/20 18:40 03/02/20 21:08 03/03/20 04:00 Glucose (Fingerstick) 89 mg/dL (70-99) 195 mg/dL (70-99) Troponin I Quantitative 0.047 ng/mL (0.000-0.055) Triglycerides Level 196 mg/dL (0-150) Cholesterol Level 125 mg/dL (0-200) LDL Cholesterol, Calculated 55 mg/dL (0-100) VLDL Cholesterol, Calculated 39 mg/dL (0-40) Non-HDL Cholesterol Calculated 94 mg/dL (0-129) HDL Cholesterol 31 mg/dL (40-60) Cholesterol/HDL Ratio 4.0 Test 03/03/20 07:44 Glucose (Fingerstick) 145 mg/dL (70-99) Medications Active Scripts Medications Dose Route/Sig Max Daily Dose Days Date Category [Fluconazole] 100 MG Tablet 200 Mg PO DAILY 7 01/19/20 Rx Metformin Hcl 1,000 Mg Tablet 1,000 Mg PO BID 01/16/20 Reported Lantus (Insulin Glargine,Hum.rec.anlog) 100 Unit/1 Ml Vial 100 Unit SQ HS 3/1/20 Reported Klor-Con 10 (Potassium Chloride) 10 Meq Tablet.er 1 Tab PO DAILY 30 10/19/19 Rx Naproxen 500 Mg Tablet 1 Tab PO BID PRN 09/21/18 Rx Aspirin 81 Mg Tab.chew 1 Tab PO DAILY 11/06/17 Reported Repaglinide 1 Mg Tablet 1 Mg PO TID 11/06/17 Reported Zetia (Ezetimibe) 10 Mg Tablet 1 Tab PO DAILY 11/06/17 Reported Metoprolol Tartrate 100 Mg Tablet 1 Tab PO BID 11/06/17 Reported Amlodipine-Benazepril 10-20 Mg (Amlodipine Besylate/Benazepril) 1 Each Capsule 1 Cap PO DAILY 11/06/17 Reported Comments CXR: 03/02/2020 IMPRESSION: 1. No confluent infiltrates. Impression . IMPRESSION: 1. Mild nonproductive cough with no obvious fever and no definite infiltrates. Likely viral bronchitis. Clinical suspicion for COVID-19 is less. There is no obvious COVID-19 exposure. 2. No chest pains. 3. No significant history of tobacco use or asthma. Plan . RECOMMENDATIONS: Cont. Empiric ABX COVID-19 (-) Remains on rooma ir HTN per PCP ok to D/C home from our stand point D/W PRIMITIVO LUZ MD Mar 03, 2020 10:37
[2020-03-03 11:00] VITALS: BP 151/70
--- NOTE | 2020-03-03 11:31 | NUR ---
Pt went down for echo at approx 1130 and follow up appt in June made for Dr. Asif. Hydralazine 25mg bid started to the patients regimen. Patients pharmacy is [facility] pharmacy.
[2020-03-03] MEDS ORDERED: DOXY100T PO (12:08)
[2020-03-03] MEDS ORDERED: CARV12.511 PO (12:08)
[2020-03-03] MEDS ORDERED: HYDR-2868 PO (12:08)
[2020-03-03] MEDS ORDERED: ATOR20TA58 PO (12:08)
[2020-03-03] MEDS ORDERED: hydrALAZINE 25 MG TABLET PO SCH (12:15)
--- NOTE | 2020-03-03 12:17 | PDOC3 ---
Discharge Summary Visit Information Date of Admission: Mar 02, 2020 Date of Discharge: Mar 03, 2020 Admitting Diagnosis: Elevated troponin Final Diagnosis Problems Medical Problems: (1) Elevated troponin Status: Acute (2) Hypertensive urgency Status: Acute (3) Suspected COVID-19 virus infection Status: Acute Brief Hospital Course Allergies Allergies Coded Allergies Type Severity Reaction Last Updated Verified No Known Drug Allergies 05/11/17 No Vital Signs Vital Signs Date Time Temp Pulse Resp B/P (MAP) Pulse Ox O2 Delivery O2 Flow Rate FiO2 03/03/20 11:00 77 151/70 (97) Room Air 03/03/20 07:30 98.2 14 96 98.2 Lab Results Laboratory Tests Test 03/02/20 11:25 03/02/20 11:36 03/02/20 11:42 03/02/20 15:45 Coronavirus (COVID-19)(PCR) See separate report Urine Collection Type Unknown Urine Color Yellow Urine Clarity Clear Urine pH 6.0 (<5.0-8.0) Urine Specific [place] 1.020 (1.000-1.030) Urine Protein 100 mg/dL (NEG-TRACE) Urine Glucose (UA) Negative mg/dL (NEG) Urine Ketones (Stick) Negative mg/dL (NEG) Urine Blood Negative (NEG) Urine Nitrite Negative (NEG) Urine Bilirubin Negative (NEG) Urine Urobilinogen Dipstick 1.0 mg/dL (0.2 mg/dL) Urine Leukocyte Esterase Negative (NEG) Urine RBC Rare /HPF (0-2) Urine WBC 0 /HPF (0-4) Urine Squamous Epithelial Cells Few /LPF Urine Bacteria 0 /HPF (0-FEW) White Blood Count 7.8 x10^3/uL (4.0-11.0) Red Blood Count 5.23 x10^6/uL (4.30-5.70) Hemoglobin 14.5 g/dL (13.0-17.5) Hematocrit 43.7 % (39.0-53.0) Mean Corpuscular Volume 84 fL (79-100) Mean Corpuscular Hemoglobin 28 pg (25-35) Mean Corpuscular Hemoglobin Concent 33 g/dL (31-37) Red Cell Distribution Width 15.3 % (11.5-14.5) Platelet Count 148 x10^3/uL (140-400) Neutrophils (%) (Auto) 67 % (31-73) Lymphocytes (%) (Auto) 20 % (24-48) Monocytes (%) (Auto) 7 % (0-9) Eosinophils (%) (Auto) 4 % (0-3) Basophils (%) (Auto) 1 % (0-3) Neutrophils # (Auto) 5.2 x10^3/uL (1.8-7.7) Lymphocytes # (Auto) 1.6 x10^3/uL (1.0-4.8) Monocytes # (Auto) 0.6 x10^3/uL (0.0-1.1) Eosinophils # (Auto) 0.3 x10^3/uL (0.0-0.7) Basophils # (Auto) 0.1 x10^3/uL (0.0-0.2) D-Dimer (Rachell) 0.66 ug/mlFEU (0.00-0.50) Sodium Level 142 mmol/L (136-145) Potassium Level 3.5 mmol/L (3.5-5.1) Chloride Level 106 mmol/L (98-107) Carbon Dioxide Level 27 mmol/L (21-32) Anion Gap 9 (6-14) Blood Urea Nitrogen 26 mg/dL (8-26) Creatinine 1.1 mg/dL (0.7-1.3) Estimated GFR (Cockcroft-Gault) 82.3 BUN/Creatinine Ratio 24 (6-20) Glucose Level 127 mg/dL (70-99) Hemoglobin A1c 8.6 % (4.8-5.6) Lactic Acid Level 1.9 mmol/L (0.4-2.0) Calcium Level 8.2 mg/dL (8.5-10.1) Magnesium Level 2.0 mg/dL (1.8-2.4) Total Bilirubin 0.3 mg/dL (0.2-1.0) Aspartate Amino Transf (AST/SGOT) 16 U/L (15-37) Alanine Aminotransferase (ALT/SGPT) 30 U/L (16-63) Alkaline Phosphatase 114 U/L (46-116) Creatine Kinase 73 U/L (39-308) Troponin I Quantitative 0.073 ng/mL (0.000-0.055) 0.067 ng/mL (0.000-0.055) QK-Wco-A-Type Natriuretic Peptide 219 pg/mL (0-124) Total Protein 6.8 g/dL (6.4-8.2) Albumin 3.5 g/dL (3.4-5.0) Albumin/Globulin Ratio 1.1 (1.0-1.7) Lipase 69 U/L (73-393) Thyroid Stimulating Hormone (TSH) 1.156 uIU/mL (0.358-3.74) Test 03/02/20 17:03 03/02/20 18:40 03/02/20 21:08 03/03/20 04:00 Glucose (Fingerstick) 89 mg/dL (70-99) 195 mg/dL (70-99) Troponin I Quantitative 0.047 ng/mL (0.000-0.055) Triglycerides Level 196 mg/dL (0-150) Cholesterol Level 125 mg/dL (0-200) LDL Cholesterol, Calculated 55 mg/dL (0-100) VLDL Cholesterol, Calculated 39 mg/dL (0-40) Non-HDL Cholesterol Calculated 94 mg/dL (0-129) HDL Cholesterol 31 mg/dL (40-60) Cholesterol/HDL Ratio 4.0 Test 03/03/20 07:44 03/03/20 11:11 Glucose (Fingerstick) 145 mg/dL (70-99) 308 mg/dL (70-99) Laboratory Tests Test 03/02/20 15:45 03/02/20 17:03 03/02/20 18:40 03/02/20 21:08 Troponin I Quantitative 0.067 ng/mL (0.000-0.055) 0.047 ng/mL (0.000-0.055) Glucose (Fingerstick) 89 mg/dL (70-99) 195 mg/dL (70-99) Test 03/03/20 04:00 03/03/20 07:44 03/03/20 11:11 Triglycerides Level 196 mg/dL (0-150) Cholesterol Level 125 mg/dL (0-200) LDL Cholesterol, Calculated 55 mg/dL (0-100) VLDL Cholesterol, Calculated 39 mg/dL (0-40) Non-HDL Cholesterol Calculated 94 mg/dL (0-129) HDL Cholesterol 31 mg/dL (40-60) Cholesterol/HDL Ratio 4.0 Glucose (Fingerstick) 145 mg/dL (70-99) 308 mg/dL (70-99) Brief Hospital Course Mr Méndez is a 59 yo M w/ PMHx HTN, HLD, CAD, chronic lymphedema, OA, DM2 who presented to hospital with nonproductive cough for 2 days. No fever or chills. No chest pains and no shortness of breath. No headaches, no nausea, vomiting, no diarrhea. He did complain of stiffness in his left lower back. His chest x- ray was clear. COVID testing was obtained in the ER which was negative. Pulmonology and cardiology consulted. Feeling improved today. No CP or SOB. No hypoxia. no cough. Plans for echo today and transfer out of COVID observation unit. BP meds adjusted by cardiology then home. Problem list: Shortness of breath - atypical chest pain equivalent, anxiety related and pain related CAD with 20% lesion to LAD otherwise no significant disease. LE lymphedema Left lower back and chest pain. possible MSK with heavy lifting Friday. He does have hx of nephrolithiasis. HTN urgency -meds adjusted by cardiology Mild troponin elevation - 0.073. possibly type 2, demand mediated due to uncontrolled HTN Doubt ACS. EKG SR without acute changes by comparison. DM2 Obesity Chronic LE lymphedema with recurring cellultiis: S/P biopsy by a office technology instructor few days ago. Completed antibiotics recently Concern for covid-19 symptoms - negative Coronary artery disease Hyperlipidemia Degenerative disc disease// moderate at L4-5 and mild at L3-4 and L5-S1. Mild bilateral hip osteoarthritis. HX LEUKEMIA Greater than 30 minutes spent on d/c Discharge Information Condition at Discharge: Improved Follow Up: Weeks (1) Disposition/Orders: D/C to Home Scheduled Amlodipine Besylate/Benazepril (Amlodipine-Benazepril 10-20 Mg) 1 Each Capsule, 1 CAP PO DAILY, #30 Ref 5 (Reported) Entered as Reported by: SURAJ KING on 11/06/17 1506 Last Taken: Unknown Dose on 03/01/20 Last Action: Converted on 03/02/20 1646 by JENNIFER LEONARD MD Aspirin (Aspirin) 81 Mg Tab.chew, 1 TAB PO DAILY, #30 Ref 3 (Reported) Entered as Reported by: SURAJ KING on 11/06/17 1532 Last Taken: Unknown Dose on 03/02/20 Last Action: Continued on 03/02/201645 by JENNIFER LEONARD MD Atorvastatin Calcium (Atorvastatin Calcium) 20 Mg Tablet, 20 MG PO QHS for HLD for 30 Days, #30 Ref 2 Prescribed by: AIME CORONA MD on 03/03/20 1208 Carvedilol (Carvedilol ) 12.5 Mg Tablet, 12.5 MG PO BIDWMEALS for CAD/HTN for 30 Days, #60 Ref 2 Prescribed by: AIME CORONA MD on 03/03/20 1208 Doxycycline Hyclate (Doxycycline Hyclate) 100 Mg Tablet, 100 MG PO BID for bronchitis for 4 Days, #8 Prescribed by: AIME CORONA MD on 03/03/20 1208 Ezetimibe (Zetia) 10 Mg Tablet, 1 TAB PO DAILY, #30 Ref 5 (Reported) Entered as Reported by: SURAJ KING on 11/06/17 1506 Last Taken: Unknown Dose on 03/01/20 Last Action: Continued on 03/02/201645 by JENNIFER LEONARD MD Hydralazine Hcl (Hydralazine Hcl) 25 Mg Tablet, 1 TAB PO BID for HTN, #60 Ref 3 Prescribed by: AIME CORONA MD on 03/03/20 1208 Insulin Glargine,Hum.rec.anlog (Lantus) 100 Unit/1 Ml Vial, 100 UNIT SQ HS for dm, (Reported) Entered as Reported by: KIERA DUNNE on 01/16/201922 Last Taken: Unknown Dose on 03/01/20 Last Action: HELD on 03/02/201645 by JENNIFER LEONARD MD Metformin Hcl (Metformin Hcl) 1,000 Mg Tablet, 1,000 MG PO BID for ANTI- DIABETIC, Ref 0 (Reported) Entered as Reported by: KIERA DUNNE on 01/16/202106 Last Taken: Unknown Dose on 03/01/20 Last Action: Converted on 03/02/201645 by JENNIFER LEONARD MD Potassium Chloride (Klor-Con 10) 10 Meq Tablet.er, 1 TAB PO DAILY for 30 Days, #30 Ref 0 Prescribed by: DAMASO MENDENHALL MD on 10/19/19 0753 Last Taken: Unknown Dose on 03/01/20 Last Action: Converted on 03/02/201645 by JENNIFER LEONARD MD Repaglinide (Repaglinide) 1 Mg Tablet, 1 MG PO TID, (Reported) Entered as Reported by: SURAJ KING on 11/06/17 1506 Last Taken: Unknown Dose on 03/01/20 Last Action: Converted on 03/02/201645 by JENNIFER LEONARD MD Scheduled PRN Naproxen (Naproxen) 500 Mg Tablet, 1 TAB PO BID PRN for PAIN, #20 Ref 0 Prescribed by: LISA RAMON D.O. on 09/21/18 0204 Last Action: Continued on 03/02/201645 by JENNIFER LEONARD MD Discontinued Medications Amoxicillin/Potassium Clav (Amox Tr-K Clv 875-125 Mg Tab) 1 Each Tablet, 1 TAB PO BID for Cellulitis for 7 Days, #14 Prescribed by: AIME CORONA MD on 01/19/201156 Last Action: Discontinued on 03/02/201645 by JENNIFER LEONARD MD Metoprolol Tartrate (Metoprolol Tartrate) 100 Mg Tablet, 1 TAB PO BID, #60 Ref 5 (Reported) Entered as Reported by: SURAJ KING on 11/06/17 1506 Last Taken: Unknown Dose on 03/01/20 Last Action: Converted on 03/02/201645 by JENNIFER LEONARD MD [Fluconazole] 100 MG TABLET, 200 MG PO DAILY for Cellulitis for 7 Days, #14 Prescribed by: AIME CORONA MD on 01/19/201156 Last Taken: Unknown Dose on 03/01/20 Last Action: HELD on 03/02/201645 by MD CJ BRIGGS CHRISTOPHER S MD Mar 03, 2020 12:17
[2020-03-03 12:53] VITALS: BP 156/77
--- NOTE | 2020-03-03 14:04 | CARD ---
MR#: [id number] Date of Study: 03/03/2020 Ordering Physician: FAIZAN HORAN, Referring Physician: FAIZAN HORAN, Tech: Yaneth Katz APPROVED REPORT EXAM: Two-dimensional and M-mode echocardiogram with Doppler and color Doppler. Other Information Quality : AverageHR: 78bpm INDICATION Dyspnea 2D DIMENSIONS RVDd3.6 (2.9-3.5cm)Left Atrium(2D)4.7 (1.6-4.0cm) IVSd1.6 (0.7-1.1cm)Aortic Root(2D)3.5 (2.0-3.7cm) LVDd6.0 (3.9-5.9cm)LVOT Diameter2.3 (1.8-2.4cm) PWd1.4 (0.7-1.1cm)LVDs4.2 (2.5-4.0cm) FS (%) 29.6 %SV100.0 ml LVEF(%)55.7 (>50%) Aortic Valve AoV Peak Gerry.121.3cm/sAoV VTI22.9cm AO Peak GR.5.9mmHgLVOT Peak Gerry.75.3cm/s LVOT VTI 14.81cmAO Mean GR.3mmHg MICHAEL (VMAX)1.09xw7HSJ (VTI)2.61cm2 Mitral Valve MV E [place]10.4cm/sMV DECEL [id number] MV A Pgjgjhpn08.2cm/sMV E Mean Gr.1mmHg MV DEN60dyJ/A Ratio0.6 MVA (PHT)4.12cm2 TDI E/Lateral E'7.4E/Medial E'10.0 Pulmonary Valve PV Peak Wrnmcsby693.2cm/sPV Peak Grad.4mmHg Tricuspid Valve TR P. Yxmkezfp126kz/sRAP DAEVPBSY9quNb TR Peak Gr.31eeLuUGHH41bhUh Pulmonary Vein S1 Zqgzwvfk65.3cm/sD2 Ewxluokz38.7cm/s PVa [id number] LEFT VENTRICLE The Left Ventricle is mildly dilated. There is moderate concentric left ventricular hypertrophy. The left ventricular systolic function is normal and the ejection fraction is within normal range. EF 55% There is normal LV segmental wall motion. Transmitral Doppler flow pattern is Grade I-abnormal relax ation pattern. RIGHT VENTRICLE The right ventricle is mildly dilated. There is normal right ventricular wall thickness. The right ve ntricular systolic function is normal. ATRIA The left atrium is borderline dilated. The right atrium size is normal. The interatrial septum is int act with no evidence for an atrial septal defect or patent foramen ovale as noted on 2-D or Doppler i maging. AORTIC VALVE The aortic valve is calcified but opens well. Doppler and Color Flow revealed no significant aortic r egurgitation. There is no significant aortic valvular stenosis. MITRAL VALVE The mitral valve is normal in structure and function. There is no evidence of mitral valve prolapse. There is no mitral valve stenosis. Doppler and Color Flow revealed no mitral valve regurgitation note d. TRICUSPID VALVE The tricuspid valve is normal in structure and function. Doppler and Color Flow revealed trace tricus pid regurgitation with an estimated PAP of 22 mmHg. There is no tricuspid valve stenosis. PULMONIC VALVE The pulmonic valve is not well visualized. Doppler and Color Flow revealed trace pulmonic valvular re gurgitation. There is no pulmonic valvular stenosis. GREAT VESSELS The aortic root is normal in size. The IVC is normal in size and collapses >50% with inspiration. PERICARDIAL EFFUSION There is no evidence of significant pericardial effusion. Critical Notification Critical Value: No <Conclusion> The left ventricular systolic function is normal and the ejection fraction is within normal range. EF 55% There is normal LV segmental wall motion. There is moderate concentric left ventricular hypertrophy. Signed by : Alex Asif, Electronically Approved : 03/03/2020 14:04:18
[2020-03-03] MEDS ORDERED: REPAGLINIDE 0.5 MG TABLET PO SCH (17:30)
== END 2020-03-03 14:46 | disposition home or self-care (01) | DRG 305 ==
LOC: ER 09:39 → 6 SOUTH 12:11
PROVIDERS: ADMIT Internal Medicine; ATTEND Internal Medicine
DX: I16.0 Hypertensive urgency (principal); I24.8 Other forms of acute ischemic heart disease; L03.90 Cellulitis, unspecified; R07.89 Other chest pain; F41.9 Anxiety disorder, unspecified; E11.9 Type 2 diabetes mellitus without complications; E66.9 Obesity, unspecified; E78.00 Pure hypercholesterolemia, unspecified; E78.5 Hyperlipidemia, unspecified; I10 Essential (primary) hypertension; I25.10 Atherosclerotic heart disease of native coronary artery without angina pectoris; I89.0 Lymphedema, not elsewhere classified; J40 Bronchitis, not specified as acute or chronic; M16.0 Bilateral primary osteoarthritis of hip; M51.37 Other intervertebral disc degeneration, lumbosacral region; X50.0XXA Overexertion from strenuous movement or load, initial encounter; Z82.49 Family history of ischemic heart disease and other diseases of the circulatory system; Z85.6 Personal history of leukemia; Z87.442 Personal history of urinary calculi; Z03.818 Encounter for observation for suspected exposure to other biological agents ruled out
CPT/HCPCS: 36415; 71045; 80053; 80061; 81001; 82550; 82962; 83036; 83605; 83690; 83735; 83880; 84443; 84484; 85025; 85379; 87040; 93005; 93306; 99285; J0360; J1650; G0378

== ENCOUNTER 2020-06-17 14:41 | Emergency (ER) | payer OTHER ==
[~2020-06-17] VITALS: Ht 177.8 cm; Wt 95.5 kg
[~2020-06-17 14:41] MED LIST changes: +ATOR20TA58 PO; +CARV12.511 PO; +DOXY100T PO; +HYDR-2868 PO
[2020-06-17] MEDS ORDERED: IV NORMAL SALINE 1000ML BAG 1,000 ML IV SCH (15:06)
[2020-06-17] MEDS ORDERED: ACETAMINOPHEN 500 MG TABLET PO ONE (15:15)
[2020-06-17 15:33] LABS: BASO % 1 % (0-3); EOS # 0.1 x10^3/uL (0.0-0.7); EOS % 1 % (0-3); HEMATOCRIT 39.2 % (39.0-53.0); HEMOGLOBIN 13.2 g/dL (13.0-17.5); LYMPH # 1.1 x10^3/uL (1.0-4.8); LYMPH % 19 % (24-48); MEAN CORPUSCULAR HEMOGLOBIN 28 pg (25-35); MEAN CORPUSCULAR HGB CONC 34 g/dL (31-37); MEAN CORPUSCULAR VOLUME 84 fL (79-100); MONO # 0.4 x10^3/uL (0.0-1.1); MONO % 7 % (0-9); NEUT # 4.4 x10^3/uL (1.8-7.7); NEUT % 73 % (31-73); PLATELET COUNT 123 x10^3/uL (140-400); RED BLOOD COUNT 4.68 x10^6/uL (4.30-5.70)
--- NOTE | 2020-06-17 15:33 | RAD ---
CT HEAD WO CONTRAST Date: 06/17/2020 3:16 PM Clinical Indication: Reason: headache/pressure / Spl. Instructions: / History: Comparison: 11/09/2018. Technique: 5 mm axial tomographic images were obtained of the head without contrast. These were viewed on brain and bone windows. One or more of the following dose reduction techniques were utilized: Automated exposure control (AEC), Adjustment of mA and/or kV according to patient size, Use of iterative reconstruction technique such as ASiR, CT scan done according to ALARA and image gently/image wisely Findings: The brain parenchyma is normal in attenuation. No intra- or extra-axial mass or fluid collection. No acute hemorrhage. The ventricles are normal in size, shape, and morphology. The crawford-white matter junction is normal. The subarachnoid cisterns are patent. The visualized paranasal sinuses are normal. The visualized portions of the orbits and globes are normal. The mastoid air cells are clear. The hoseman topogram shows no lytic lesion or fracture. Impression: No acute intracranial process. Electronically signed by: Jose Hawkins MD (06/17/2020 3:30 PM) [id number]
[2020-06-17 15:39] LABS: PROTHROMBIN TIME PATIENT 12.8 SEC (11.7-14.0)
[2020-06-17 15:58] LABS: ALBUMIN 3.3 g/dL (3.4-5.0); ALBUMIN/GLOBULIN RATIO 0.9 (1.0-1.7); C-REACTIVE PROTEIN 49.8 mg/L (0-3.3); CREATININE 1.3 mg/dL (0.7-1.3); GFR 67.9; MAGNESIUM 2.1 mg/dL (1.8-2.4); POTASSIUM 4.1 mmol/L (3.5-5.1); TOTAL BILIRUBIN 0.5 mg/dL (0.2-1.0)
--- NOTE | 2020-06-17 15:59 | RAD ---
PORTABLE CHEST 1V INDICATION: Reason: fever, cough, ED22 / Spl. Instructions: / History: . COMPARISON STUDY: 03/02/2020. FINDINGS: Lungs: Normal lung volume. Mild ill-defined lingular opacities. The tracheobronchial tree and hilar structures are normal. Pleura: No pleural effusion or pneumothorax. Heart and Mediastinum: The cardiomediastinal silhouette is normal. The great vessels of the thorax are normal. IMPRESSION: Mild ill-defined lingular opacities, which may represent an infectious/inflammatory process. Electronically signed by: Jose Hawkins MD (06/17/2020 3:56 PM) [id number]
[2020-06-17] MEDS ORDERED: AZITHROMYCIN 500 MG in IV NORMAL SALINE 250ML 250 ML IV ONE (17:15)
[2020-06-17] MEDS ORDERED: AZITHRMYCN 500MG IVPB FOR OMNI 250 ML IV ONE (17:15)
[2020-06-17] MEDS ORDERED: cefTRIAXone IV Push 1 GM VIAL. IVP ONE (17:15)
[2020-06-17] MEDS ORDERED: AZIT250T6 PO (18:37)
--- NOTE | 2020-06-17 18:37 | PHYS DOC ---
Past Medical History Past Medical History: CAD, Diabetes-Type II, High Cholesterol, Hypertension Additional Past Medical Histor: leukemia (CHAMP ROCA APRN) Past Surgical History: Cholecystectomy, Other Additional Past Surgical Histo: GALLSTONE SX (CHAMP ROCA APRN) Smoking Status: Never Smoker Alcohol Use: None Drug Use: None (CHAMP ROCA APRN) General Adult EDM: Chief Complaint: HEADACHE HPI: HPI: Patient is a 59 year old male with a history of leukemia, diabetes type 2, hypertension, high cholesterol, who presents to the ED today complaining of head pressure, cough, loss of appetite, symptoms began a week ago. He is also complaining of intermittent episodes of nausea. He reports he was tested for COVID19 6 days ago and the results were negative. (CHAMP ROCA APRN) Review of Systems: Review of Systems: Constitutional: Reports loss of appetite. Denies fever or chills. [] Eyes: Denies change in visual acuity. [] HENT: Denies nasal congestion or sore throat. [] Respiratory: Reports cough, denies shortness of breath. [] Cardiovascular: Denies chest pain or edema. [] GI: Reports nausea with no vomiting. Denies abdominal pain, bloody stools or diarrhea. [] : Denies dysuria. [] Musculoskeletal: Denies back pain or joint pain. [] Integument: Denies rash. [] Neurologic: Reports head pressure, denies focal weakness or sensory changes. [] Endocrine: Denies polyuria or polydipsia. [] Lymphatic: Denies swollen glands. [] Psychiatric: Denies depression or anxiety. [] (CHAMP ROCA APRN) Heart Score: Risk Factors: Risk Factors: DM, Current or recent (<one month) smoker, HTN, HLP, family history of CAD, obesity. Risk Scores: Score 0 - 3: 2.5% MACE over next 6 weeks - Discharge Home Score 4 - 6: 20.3% MACE over next 6 weeks - Admit for Clinical Observation Score 7 - 10: 72.7% MACE over next 6 weeks - Early Invasive Strategies (CHAMP ROCA APRN) Current Medications: Current Medications Medications (Trade) Dose Ordered Sig/Fredis Start Time Stop Time Status Last Admin Dose Admin Acetaminophen (Tylenol) 1,000 mg 1X ONCE 06/17/20 15:15 06/17/20 15:16 DC 06/17/20 15:41 1,000 MG Azithromycin 250 ml @ 250 mls/hr 1X ONCE 06/17/20 17:15 06/17/20 18:14 DC Azithromycin 500 mg/Sodium Chloride 250 ml @ 250 mls/hr 1X ONCE 06/17/20 17:15 06/17/20 18:14 UNV Ceftriaxone Sodium (Rocephin) 1 gm 1X ONCE 06/17/20 17:15 06/17/20 17:16 DC Sodium Chloride 1,000 ml @ 100 mls/hr Q10H 06/17/20 15:06 06/18/20 01:05 06/17/20 15:58 100 MLS/HR (CHAMP ROCA APRN) Allergies: Allergies: Allergies Coded Allergies Type Severity Reaction Last Updated Verified No Known Drug Allergies 05/11/17 No (CHAMP ROCA OPERATING ROOM TECHNICIAN) Physical Exam: PE: Constitutional: Well developed, well nourished, no acute distress, non-toxic appearance. [] HENT: Normocephalic, atraumatic, bilateral external ears normal, oropharynx moist, no oral exudates, nose normal. [] Eyes: PERRLA, EOMI, conjunctiva normal, no discharge. [] Neck: Normal range of motion, no tenderness, supple, no stridor. [] Cardiovascular:Heart rate regular rhythm, no murmur [] Lungs & Thorax: Bilateral breath sounds clear to auscultation [] Abdomen: Bowel sounds normal, soft, no tenderness, no masses, no pulsatile masses. [] Skin: Warm, dry, no erythema, no rash. [] Back: No tenderness, no CVA tenderness. [] Extremities: No tenderness, no cyanosis, no clubbing, ROM intact, no edema. [] Neurologic: Alert and oriented X 3, normal motor function, normal sensory function, no focal deficits noted. Cranial nerves II through XII intact Psychologic: Affect normal, judgement normal, mood normal. [] ([place] OPERATING ROOM TECHNICIAN) Current Patient Data: Labs: Laboratory Tests Test 06/17/20 15:15 White Blood Count 6.0 x10^3/uL (4.0-11.0) Red Blood Count 4.68 x10^6/uL (4.30-5.70) Hemoglobin 13.2 g/dL (13.0-17.5) Hematocrit 39.2 % (39.0-53.0) Mean Corpuscular Volume 84 fL (79-100) Mean Corpuscular Hemoglobin 28 pg (25-35) Mean Corpuscular Hemoglobin Concent 34 g/dL (31-37) Red Cell Distribution Width 16.0 % (11.5-14.5) H Platelet Count 123 x10^3/uL (140-400) L Neutrophils (%) (Auto) 73 % (31-73) Lymphocytes (%) (Auto) 19 % (24-48) L Monocytes (%) (Auto) 7 % (0-9) Eosinophils (%) (Auto) 1 % (0-3) Basophils (%) (Auto) 1 % (0-3) Neutrophils # (Auto) 4.4 x10^3/uL (1.8-7.7) Lymphocytes # (Auto) 1.1 x10^3/uL (1.0-4.8) Monocytes # (Auto) 0.4 x10^3/uL (0.0-1.1) Eosinophils # (Auto) 0.1 x10^3/uL (0.0-0.7) Basophils # (Auto) 0.0 x10^3/uL (0.0-0.2) Prothrombin Time 12.8 SEC (11.7-14.0) Prothrombin Time INR 1.0 (0.8-1.1) Activated Partial Thromboplast Time 26 SEC (24-38) Sodium Level 137 mmol/L (136-145) Potassium Level 4.1 mmol/L (3.5-5.1) Chloride Level 101 mmol/L (98-107) Carbon Dioxide Level 27 mmol/L (21-32) Anion Gap 9 (6-14) Blood Urea Nitrogen 15 mg/dL (8-26) Creatinine 1.3 mg/dL (0.7-1.3) Estimated GFR (Cockcroft-Gault) 67.9 BUN/Creatinine Ratio 12 (6-20) Glucose Level 50 mg/dL (70-99) L Lactic Acid Level 1.0 mmol/L (0.4-2.0) Calcium Level 8.0 mg/dL (8.5-10.1) L Magnesium Level 2.1 mg/dL (1.8-2.4) Ferritin 131 ng/mL (26-388) Total Bilirubin 0.5 mg/dL (0.2-1.0) Aspartate Amino Transferase (AST) 61 U/L (15-37) H Alanine Aminotransferase (ALT) 83 U/L (16-63) H Alkaline Phosphatase 153 U/L (46-116) H Creatine Kinase 215 U/L (39-308) Creatine Kinase MB (Mass) 1.2 ng/mL (0.0-3.6) Creatine Kinase MB Relative Index 0.6 % (0-4) Troponin I Quantitative 0.054 ng/mL (0.000-0.055) C-Reactive Protein, Quantitative 49.8 mg/L (0-3.3) H BU-Awt-H-Type Natriuretic Peptide 308 pg/mL (0-124) H Total Protein 7.0 g/dL (6.4-8.2) Albumin 3.3 g/dL (3.4-5.0) L Albumin/Globulin Ratio 0.9 (1.0-1.7) L Procalcitonin 0.12 ng/mL (0.00-0.10) H Thyroid Stimulating Hormone (TSH) 0.777 uIU/mL (0.358-3.74) Laboratory Tests 06/17/20 15:15 Laboratory Tests 06/17/20 15:15 Vital Signs: Vital Signs Date Time Temp Pulse Resp B/P (MAP) Pulse Ox O2 Delivery O2 Flow Rate FiO2 06/17/20 15:59 84 20 93 06/17/20 15:15 101.1 195/80 (118) Room Air 101.1 (CHAMP ROCA APRN) EKG: EKG: [] (CHAMP ROCA APRN) Radiology/Procedures: Radiology/Procedures: PROCEDURE: CT HEAD WO CONTRAST CT HEAD WO CONTRAST Date: 06/17/2020 3:16 PM Clinical Indication: Reason: headache/pressure / Spl. Instructions: / History: Comparison: 11/09/2018. Technique: 5 mm axial tomographic images were obtained of the head without contrast. These were viewed on brain and bone windows. One or more of the following dose reduction techniques were utilized: Automated exposure control (AEC), Adjustment of mA and/or kV according to patient size, Use of iterative reconstruction technique such as ASiR, CT scan done according to ALARA and image gently/image wisely Findings: The brain parenchyma is normal in attenuation. No intra- or extra-axial mass or fluid collection. No acute hemorrhage. The ventricles are normal in size, shape, and morphology. The crawford-white matter junction is normal. The subarachnoid cisterns are patent. The visualized paranasal sinuses are normal. The visualized portions of the orbits and globes are normal. The mastoid air cells are clear. The woodworking machine feeder topogram shows no lytic lesion or fracture. Impression: No acute intracranial process. Electronically signed by: Monica Hawkins MD (06/17/2020 3:30 PM) [id number] DICTATED and SIGNED BY: MONICA HAWKINS MD DATE: 06/17/20 1530 []PROCEDURE: PORTABLE CHEST 1V PORTABLE CHEST 1V INDICATION: Reason: fever, cough, ED22 / Spl. Instructions: / History: . COMPARISON STUDY: 03/02/2020. FINDINGS: Lungs: Normal lung volume. Mild ill-defined lingular opacities. The tracheobronchial tree and hilar structures are normal. Pleura: No pleural effusion or pneumothorax. Heart and Mediastinum: The cardiomediastinal silhouette is normal. The great vessels of the thorax are normal. IMPRESSION: Mild ill-defined lingular opacities, which may represent an infectious/inflammatory process. Electronically signed by: Monica Hawkins MD (06/17/2020 3:56 PM) [id number] DICTATED and SIGNED BY: MONICA HAWKINS MD DATE: 06/17/20 1556 (CHAMP ROCA APRN) Course & Med Decision Making: Course & Med Decision Making Pertinent Labs and Imaging studies reviewed. (See chart for details) This is a 59-year-old male patient presenting to the ED today with multiple complaints including head pressure, cough, loss of appetite, nausea with no vomiting, symptoms for a week. Patient arrives in the ED with a temperature of 101.1, heart rate of 87, respiration of 14 on room air, blood pressure 195/80, O2 sats 97% on room air. Sepsis work-up was initiated. CT of the head is negative, CBC with a normal WBC. Platelets 123. CMP with AST of 61, ALT of 83 hx of gallstone surgery, C-reactive of 49.8. COVID-19 testing was done. Patient was offered admission to the hospital, he refused and prefers to follow- up with his own doctor as an outpatient. He was informed to quarantine himself. Instructed to return to the ED at any point symptoms worsen (CHAMP ROCA APRN) Dragon Disclaimer: Dragon Disclaimer: This electronic medical record was generated, in whole or in part, using a voice recognition dictation system. (CHAMP ROCA APRN) Departure Departure Impression: Primary Impression: Fever Qualified Codes: R50.9 - Fever, unspecified Additional Impressions: Cough Person under investigation for COVID-19 Headache Qualified Codes: R51 - Headache Disposition: 01 HOME, SELF-CARE Condition: STABLE Referrals: Grant JOY MD (PCP) follow up in the course of next week Patient Instructions: Cough, Adult, [id number], Fever, Adult Additional Instructions: You were evaluated in the emergency room, we repeated your COVID test. You will be contacted with results in the course of next week. In the meantime we recommend you quarantine yourself until you hear from us. Your x-ray was concerning for inflammation/infection. Take the prescribed antibiotics until completed. Follow-up with your doctor next week. Come back to the ED at any po int symptoms worsen. Take [id number] antipyretic/Tylenol as needed for fever Scripts Azithromycin (AZITHROMYCIN TABLET) 250 Mg Tablet 1 PKG PO UD for 5 Days, #6 TAB 0 Refills 2 the first day followed by 1 for days 2-5 Prov: CHAMP ROCA APRN 06/17/20 Justicifation of Admission Dx: Justifications for Admission: Justification of Admission Dx: N/A (CHAMP ROCA APRN) Attending Signature Attending Signature I have reviewed the PA/SENIOR ASIC ENGINEER's note and plan of care. I was available for consultation as needed during the patient's visit in the emergency department. I agree with the clinical impression, plan, and disposition. (LISA RAMON DO) CHAMP ROCA APRN Jun 17, 2020 18:37 LISA RAMON DO Jun 17, 2020 23:28
[2020-06-17 18:52] VITALS: BP 170/90
[2020-06-18] MEDS ORDERED: METO-247 PO (01:27)
--- NOTE | 2020-06-19 15:16 | EKG ---
[facility] [address] [place] [address] Test Date: 2020-06-17 Test Time: 15:33:07 Pat Name: MARIXA DE LA FUENTE Department: Room: Gender: [employer]: : 1960 Requested By: CHAMP ROCA Order Number: [id number] Reading MD: Measurements Intervals [place] Rate: 88 P: -27 CT: 178 QRS: -17 QRSD: 98 T: 48 QT: 362 QTc: 441 Interpretive Statements SINUS RHYTHM LEFTWARD AXIS NO SPECIFIC ECG ABNORMALITIES RI6.01 No previous ECG available for comparison
== END 2020-06-17 19:19 | disposition home or self-care (01) ==
LOC: ER 14:41
DX: U07.1 COVID-19 (principal); R50.9 Fever, unspecified; R51 Headache; R11.0 Nausea; R63.0 Anorexia; I11.9 Hypertensive heart disease without heart failure; E11.9 Type 2 diabetes mellitus without complications; E78.00 Pure hypercholesterolemia, unspecified; I10 Essential (primary) hypertension; Z90.49 Acquired absence of other specified parts of digestive tract; Z87.442 Personal history of urinary calculi
CPT/HCPCS: 36415; 70450; 71045; 80053; 82553; 82728; 83605; 83735; 83880; 84145; 84443; 84484; 85025; 85610; 85730; 86140; 87040; 93005; 99285; C9803; J7030; U0003

== ENCOUNTER 2020-06-17 21:59 | Inpatient (IN) | payer BC, OTHER ==
[~2020-06-17] VITALS: Ht 177.8 cm; Wt 95.2 kg
[~2020-06-17 21:59] MED LIST changes: +AZIT250T6 PO
--- NOTE | 2020-06-17 22:31 | PHYS DOC ---
Past Medical History Past Medical History: CAD, Diabetes-Type II, High Cholesterol, Hypertension Additional Past Medical Histor: leukemia (CHAMP ROCA APRN) Past Surgical History: Cholecystectomy, Other Additional Past Surgical Histo: GALLSTONE SX (CHAMP ROCA APRN) Smoking Status: Never Smoker Alcohol Use: None Drug Use: None (CHAMP ROCA APRN) General Adult EDM: Chief Complaint: SHORTNESS OF BREATH HPI: HPI: Patient is a 59 year old male with a history of leukemia, diabetes type 2, hypertension, high cholesterol, who presents to the ED today complaining of shortness of breath that began a couple minutes ago. Patient had been offered admission at that today but he refused and went home. Patient was seen earlier in the ED with symptoms of COVID19 including head pressure, cough, loss of appetite, symptoms began a week ago. He reports he was tested for COVID19 6 days ago and the results were negative. (HCAMP ROCA APRN) Review of Systems: Review of Systems: Constitutional: Denies fever or chills. [] Eyes: Denies change in visual acuity. [] HENT: Denies nasal congestion or sore throat. [] Respiratory: Reports cough and shortness of breath Cardiovascular: Denies chest pain or edema. [] GI: Denies abdominal pain, nausea, vomiting, bloody stools or diarrhea. [] : Denies dysuria. [] Musculoskeletal: Denies back pain or joint pain. [] Integument: Denies rash. [] Neurologic: Denies headache, focal weakness or sensory changes. [] Endocrine: Denies polyuria or polydipsia. [] Lymphatic: Denies swollen glands. [] Psychiatric: Denies depression or anxiety. [] (CHAMP ROCA APRN) Heart Score: Risk Factors: Risk Factors: DM, Current or recent (<one month) smoker, HTN, HLP, family history of CAD, obesity. Risk Scores: Score 0 - 3: 2.5% MACE over next 6 weeks - Discharge Home Score 4 - 6: 20.3% MACE over next 6 weeks - Admit for Clinical Observation Score 7 - 10: 72.7% MACE over next 6 weeks - Early Invasive Strategies (CHAMP ROCA APRN) Allergies: Allergies: Allergies Coded Allergies Type Severity Reaction Last Updated Verified No Known Drug Allergies 05/11/17 No (CHAMP ROCA APRN) Physical Exam: PE: Constitutional: Well developed, well nourished, no acute distress, non-toxic appearance. [] HENT: Normocephalic, atraumatic, bilateral external ears normal, oropharynx moist, no oral exudates, nose normal. [] Eyes: PERRLA, EOMI, conjunctiva normal, no discharge. [] Neck: Normal range of motion, no tenderness, supple, no stridor. [] Cardiovascular:Heart rate regular rhythm, no murmur [] Lungs & Thorax: Bilateral breath sounds clear to auscultation [] Abdomen: Bowel sounds normal, soft, no tenderness, no masses, no pulsatile masses. [] Skin: Warm, dry, no erythema, no rash. [] Back: No tenderness, no CVA tenderness. [] Extremities: No tenderness, no cyanosis, no clubbing, ROM intact, no edema. [] Neurologic: Alert and oriented X 3, normal motor function, normal sensory function, no focal deficits noted. [] Psychologic: Affect normal, judgement normal, mood normal. [] (CHAMP ROCA APRN) EKG: EKG: [] (CHAMP ROCA APRN) Radiology/Procedures: Radiology/Procedures: [] (CHAMP ROCA APRN) Course & Med Decision Making: Course & Med Decision Making Pertinent Labs and Imaging studies reviewed. (See chart for details) This is a 59-year-old male patient returning to the ED after being seen earlier for cough, shortness of breath, head pressure. He was worked up and noted to be febrile. He was offered admission. He is COVID19 test for 2 days pending. He refused to be admitted earlier went home and returns letter stating he has shortness of breath. His O2 sats are above 95% on room air. Patient will be admitted under Dr. Solomon Report will be given to the morning doctor by Dr. Ramon. (CHAMP ROCA APRN) Yary Disclaimer: Yary Disclaimer: This electronic medical record was generated, in whole or in part, using a voice recognition dictation system. (CHAMP ROCA APRN) Departure Departure Impression: Primary Impression: Fever Qualified Codes: R50.9 - Fever, unspecified Additional Impressions: Cough Shortness of breath Person under investigation for COVID-19 Disposition: ADMITTED INPATIENT Condition: STABLE Referrals: Grant JOY MD (PCP) Justicifation of Admission Dx: Justifications for Admission: Justification of Admission Dx: Yes Comminuty Aquired Pneumonia: Med-High Risk Pt (CHAMP ROAC APRN) Attending Signature Attending Signature I have reviewed the PA/FASHION INTERN's note and plan of care. I was available for consultation as needed during the patient's visit in the emergency department. I agree with the clinical impression, plan, and disposition. (LISA RAMON DO) CHAMP ROCA APRN Jun 17, 2020 22:31 LISA RAMON DO Jun 17, 2020 23:31
[2020-06-17] MEDS ORDERED: ONDANSETRON PF 4 MG/2 ML VIAL. IV PRN (22:45)
[2020-06-17] MEDS ORDERED: MORPHINE SULFATE 2 MG/ML VIAL. IV PRN (22:45)
[2020-06-17] MEDS ORDERED: DEXTROSE 50% 25 GM / 50ML DISP.SYRIN. IV PRN (22:45)
[2020-06-17] MEDS ORDERED: ACETAMINOPHEN 325 MG TABLET. PO PRN (22:45)
[2020-06-18] VITALS (8 sets, daily range): BP systolic 165–198; BP diastolic 74–98
[2020-06-18] MEDS ORDERED: ALBUTEROL SULFATE 2.5 MG/3 ML NEBU. NEB PRN (01:15)
[2020-06-18] MEDS ORDERED: METO-247 PO (01:27)
[2020-06-18] MEDS: FLUTICASONE 50MCG/NASAL SPRAY 16GM BOTTLE. NS SCH ×2 (02:00→13:25)
[2020-06-18] MEDS: CETIRIZINE HCL 10 MG TABLET. PO SCH ×2 (02:01→13:26)
[2020-06-18] MEDS ORDERED: amLODIPine BESYLATE 5 MG TABLET PO ONE (04:00)
[2020-06-18 04:28] LABS: BASO % 0 % (0-3); EOS # 0.1 x10^3/uL (0.0-0.7); EOS % 1 % (0-3); HEMATOCRIT 40.5 % (39.0-53.0); HEMOGLOBIN 13.3 g/dL (13.0-17.5); LYMPH # 1.6 x10^3/uL (1.0-4.8); LYMPH % 18 % (24-48); MEAN CORPUSCULAR HEMOGLOBIN 28 pg (25-35); MEAN CORPUSCULAR HGB CONC 33 g/dL (31-37); MEAN CORPUSCULAR VOLUME 85 fL (79-100); MONO # 0.5 x10^3/uL (0.0-1.1); MONO % 6 % (0-9); NEUT # 6.4 x10^3/uL (1.8-7.7); NEUT % 75 % (31-73); PLATELET COUNT 147 x10^3/uL (140-400); RED BLOOD COUNT 4.78 x10^6/uL (4.30-5.70); WHITE BLOOD COUNT 8.6 x10^3/uL (4.0-11.0)
[2020-06-18 04:43] LABS: CALCIUM 8.3 mg/dL (8.5-10.1); CREATININE 1.4 mg/dL (0.7-1.3); GFR 62.3; POTASSIUM 4.4 mmol/L (3.5-5.1)
[2020-06-18] MEDS ORDERED: IPRATRPIUM/ALBUTEROL 0.5/2.5MG 3 ML NEBU. NEB SCH (08:00)
[2020-06-18] MEDS ORDERED: PIP/TAZO PER PHARMACY MC PRN (12:30)
--- NOTE | 2020-06-18 12:36 | SSS ---
ADMIT DATE: 06/17/2020 CHIEF COMPLAINT: Shortness of breath. HISTORY OF PRESENT ILLNESS: The patient is a pleasant 59-year-old male who denies any history of leukemia, but somehow it is listed in the chart, so I am not sure if he does, but basically he presented to the ER with shortness of breath. Yesterday, he was going to be admitted, but then he left against medical advice and then returned to the ER. He had a fever and cough. He was short of breath. The patient has now been admitted to the COVID floor where we are ruling out COVID-19. It should be noted that he had a COVID test 6 days ago that was apparently negative according to him. PAST MEDICAL HISTORY: Again in the chart, it says he has leukemia, but he denies that. CAD, hypertension, hyperlipidemia, cholecystectomy, gallstones. ALLERGIES: None. FAMILY HISTORY: Diabetes. SOCIAL HISTORY: He does not drink, smoke or take drugs. MEDICATIONS: Reviewed, please refer to the MRAD. REVIEW OF SYSTEMS: GENERAL: No history of weight change, weakness or fevers. SKIN: No bruising, hair changes or rashes. EYES: No blurred, double or loss of vision. NOSE AND THROAT: No history of nosebleeds, hoarseness or sore throat. HEART: No history of palpitations, chest pain or shortness of breath on exertion. LUNGS: Denies cough, hemoptysis, wheezing or shortness of breath. GASTROINTESTINAL: Denies changes in appetite, nausea, vomiting, diarrhea or constipation. GENITOURINARY: No history of frequency, urgency, hesitancy or nocturia. NEUROLOGIC: Denies history of numbness, tingling, tremor or weakness. PSYCHIATRIC: No history of panic, anxiety or depression. ENDOCRINE: No history of heat or cold intolerance, polyuria or polydipsia. EXTREMITIES: Denies muscle weakness, joint pain, pain on walking or stiffness. PHYSICAL EXAMINATION: VITALS: He did have a temperature this morning of 100.8, but is down to 99.8 now. GENERAL: No apparent distress. Alert and oriented. HEENT: Normal cephalic atraumatic, external auditory canals are patent. Eyes: Extraocular muscles are intact, pupils are equally round and reactive to light and accommodation. MUSCULOSKELETAL: Well developed, well nourished, good range of motion. ENDOCRINE: No thyromegaly was palpated. LYMPHATICS: No cervical chain or axillary nodes were noted. HEMATOPOIETIC: No bruising. NECK: Supple, no JVD, no thyromegaly was noted. LUNGS: Clear to auscultation in all lung jaquez without rhonchi or wheezing. HEART: RRR, S1, S2 present. Peripheral pulses intact, no obvious murmurs were noted. ABDOMEN: Soft, nontender. Positive bowel sounds no organomegaly, normal bowel sounds. EXTREMITIES: Without any cyanosis, clubbing, or edema. Pedal pulses intact, Homans sign is negative. NEUROLOGIC: Normal speech, normal tone. A and O x 3, moves all extremities, no obvious focal deficits. PSYCHIATRIC: Normal affect, normal mood. Stable. SKIN: No ulcerations or rashes, good skin turgor, no jaundice. VASCULAR: Good capillary refill, neurovascular bundle appears to be intact. LABORATORY DATA: White count 8.6, hemoglobin 13.3, and platelets 147. Electrolytes are normal other than sodium of 135, creatinine of 1.4, glucose is 170. Chest x-ray showed mild ill-defined linear opacities, which may represent an infectious/inflammatory process. ASSESSMENT AND PLAN: Shortness of breath, fevers, abnormal chest x-ray, suspect possible COVID-19 with incidental finding of hyponatremia and chronic renal insufficiency. The patient will be admitted. We will put him on respiratory isolation. Consult Pulmonary Medicine. Home meds, DVT prophylaxis, DuoNebs, p.r.n. Tylenol. Trend labs. Consult Nephrology for the chronic renal insufficiency. Consult Infectious Disease. Prognosis long-term guarded. HUNTER QUINTANA DO DR: AUSTIN/marilou JOB#: [id number] / [id number]
[2020-06-18] MEDS: AZITHROMYCIN 500 MG in IV NORMAL SALINE 250ML 250 ML IV SCH (13:00)
--- NOTE | 2020-06-18 13:22 | CONS ---
DATE OF CONSULTATION: I was asked to see this 59-year-old gentleman for shortness of breath, cough, abnormal chest x-ray. COVID-19 PUI. HISTORY OF PRESENT ILLNESS: He is a lifelong nonsmoker. He does not have any pulmonary disease. He has not felt well for the past few days. He has had headache, chest congestion, cough, no sputum production, and shortness of breath. He presented to the Emergency Room yesterday, COVID test was done, but he did not stay, so he is back again for shortness of breath. Six days ago, he was checked for COVID-19. He was not symptomatic then. He just wanted to see if his COVID-19 test is negative, which it was negative. He denies any exposure to COVID-19 patient. PAST MEDICAL HISTORY: Coronary artery disease, diabetes mellitus, high cholesterol, and hypertension. PAST SURGICAL HISTORY: Status post cholecystectomy. SOCIAL HISTORY: He is a lifelong nonsmoker. FAMILY HISTORY: Hypertension. ALLERGIES: No known drug allergies. MEDICATIONS: Insulin, Zosyn, Zetia, Toprol-XL, and albuterol p.r.n. REVIEW OF SYSTEMS: As mentioned above. He has not had a sleep study. Other systems are otherwise negative. PHYSICAL EXAMINATION: GENERAL: This is an obese gentleman. VITAL SIGNS: His O2 saturation on room air is 92%, respiratory rate 20, heart rate 87, blood pressure 175/85, temperature 99.8, and maximum temperature 100.8. HEENT: Normocephalic, atraumatic. He has poor dentition. NECK: Short and thick. CARDIOVASCULAR: Regular rate and rhythm. CHEST: Inspection is normal. LUNGS: There is no audible wheezing. EXTREMITIES: There is lower extremity edema. SKIN: There is no rash. LABORATORY DATA: I reviewed the following lab data: Chest x-ray done yesterday, which showed ? lingular infiltrate. WBC 8.6, hemoglobin 13.3, and platelet 147. Sodium 135, potassium 4.4, chloride 100, CO2 of 26, BUN 14, and creatinine 1.4. His troponin yesterday was 0.05, not done today. IMPRESSION: 1. Shortness of breath, cough, headache, and fever. Differential diagnoses is COVID-19 versus other viral infection versus others. 2. Obesity, rule out obstructive sleep apnea-hypopnea syndrome. 3. Diabetes mellitus. 4. Hypertension. PLAN AND RECOMMENDATIONS: 1. Titrate FiO2 to keep O2 saturation 92%. 2. Follow up COVID-19 testing. 3. Isolation for COVID-19 until results are back. 4. Start DVT prophylaxis. 5. Continue antibiotic. 6. The findings and recommendations were discussed with the patient and RN. Thank you very much for allowing me to participate in care of this very nice gentleman. JUSTUS MOORE M.D. DR: Rina JOB#: [id number] / [id number]
[2020-06-18] MEDS: MULTIVITAMIN with MINERAL TABLET. PO SCH (13:25)
[2020-06-18] MEDS: EZETIMIBE 10 MG TABLET. PO SCH (13:26)
[2020-06-18] MEDS: METOPROLOL SUCC 24HR ER 100 MG TAB.ER.24H. PO SCH (13:27)
[2020-06-18] MEDS: ENOXAPARIN 40 MG/0.4 ML SYRINGE. SQ SCH (13:55)
[2020-06-18] MEDS: PIPERACILLIN/TAZOBACTAM 3.375 GM in IV NORMAL SALINE 50ML 50 ML IV SCH ×3 (14:25→18:15)
[2020-06-18] MEDS ORDERED: INSULIN GLARGINE SYRINGE. SQ SCH (21:00)
[2020-06-18] MEDS: LACTOBACILLUS RHAMNOSUS GG 1 CAPSULE. PO SCH (21:25)
[2020-06-19] MEDS: PIPERACILLIN/TAZOBACTAM 3.375 GM in IV NORMAL SALINE 50ML 50 ML IV SCH
[2020-06-19 03:45] VITALS: BP 189/89
--- NOTE | 2020-06-19 06:21 | NUR ---
RN reviewing orders - noted that pt not on tele - searched order history for order for pt to be M/S status - no order found. Had MALIKA Hernandez look as well - again no order found. RN went into room to place tele and explain to pt was supposed to be wearing it. Pt refused as stated he was supposed to be D/C'ed today. RN removed monitor from room. Will continue to monitor
[2020-06-19 07:00] VITALS: BP 176/84
[2020-06-19] MEDS: FLUTICASONE 50MCG/NASAL SPRAY 16GM BOTTLE. NS SCH (09:12)
[2020-06-19] MEDS: LACTOBACILLUS RHAMNOSUS GG 1 CAPSULE. PO SCH (09:13)
[2020-06-19] MEDS: METOPROLOL SUCC 24HR ER 100 MG TAB.ER.24H. PO SCH (09:13)
[2020-06-19] MEDS: MULTIVITAMIN with MINERAL TABLET. PO SCH (09:13)
[2020-06-19] MEDS: EZETIMIBE 10 MG TABLET. PO SCH (09:13)
--- NOTE | 2020-06-19 09:55 | RAD ---
EXAM: CHEST AP ONLY INDICATION: Reason: abnl cxr / Spl. Instructions: / History: . TECHNIQUE: Single view COMPARISON: Chest x-ray 06/17/2020 FINDINGS: The heart size is normal. The great vessels appear unremarkable. There is no hilar or mediastinal mass. Lungs show interval improvement in lingular opacities noted previously. There is no pleural effusion or pneumothorax. There are no significant osseous abnormalities. IMPRESSION: Improving, incompletely resolved lingular opacities. No new superimposed acute process. Electronically signed by: Johnny Platt MD (06/19/2020 9:52 AM) [id number]
--- NOTE | 2020-06-19 10:09 | PDOC ---
[employer] PROGRESS NOTE Chief Complaint Chief Complaint CC: Shortness of breath Fever Abnormal chest x-ray, suspect possible COVID-19 Incidental finding of hyponatremia Chronic renal insufficiency. Obesity, rule out obstructive sleep apnea-hypopnea syndrome. Diabetes mellitus. Hypertension. History of Present Illness History of Present Illness 06/19/2020 Patient is seen and examined Patient is resting comfortably Charts reviewed Discussed with RN Vitals/I&O Vitals/I&O: Vital Signs Date Time Temp Pulse Resp B/P (MAP) Pulse Ox O2 Delivery O2 Flow Rate FiO2 06/19/20 09:13 74 176/84 06/19/20 08:00 Room Air 06/19/20 07:00 98.1 16 89 98.1 I & O 06/18/20 06/18/20 06/19/20 15:00 23:00 07:00 Intake Total 200 ml Balance 200 ml Physical Exam General: Alert, Oriented X3, No acute distress Heart: Regular rate, No murmurs Lungs: Clear Abdomen: Normal bowel sounds Extremities: No tenderness/swelling Skin: No rashes, No significant lesion Labs Labs: Laboratory Tests Test 06/18/20 11:39 06/18/20 16:42 06/18/20 20:49 06/19/20 06:29 Glucose (Fingerstick) 169 mg/dL (70-99) 162 mg/dL (70-99) 280 mg/dL (70-99) 65 mg/dL (70-99) Test 06/19/20 07:36 Glucose (Fingerstick) 90 mg/dL (70-99) Review of Systems Review of Systems: Other systems are otherwise normal Assessment and Plan Assessmemt and Plan Problems Medical Problems: (1) Cough Status: Acute (2) Fever Status: Acute (3) Person under investigation for COVID-19 Status: Acute (4) Shortness of breath Status: Acute Assessment Shortness of breath Fever Abnormal chest x-ray, suspect possible COVID-19 Incidental finding of hyponatremia Chronic renal insufficiency. Obesity, rule out obstructive sleep apnea-hypopnea syndrome. Diabetes mellitus. Hypertension. Plan Respiratory isolation Home meds DVT prophylaxis DuoNebs Tylenol p.r.n Trend labs. Appreciate subspecialist input Comment Review of Relevant I have reviewed the following items deborah (where applicable) has been applied. Medications: Current Medications Medications (Trade) Dose Ordered Sig/Fredis Route PRN Reason Start Time Stop Time Status Last Admin Dose Admin Multivitamins (Thera M Plus) 1 tab DAILY PO 06/18/20 13:00 06/19/20 09:13 Azithromycin 500 mg/Sodium Chloride 250 ml @ 250 mls/hr Q24H IV 06/18/20 13:00 06/18/20 13:00 EZETIMIBE (Zetia) 10 mg DAILY PO 06/18/20 13:00 06/19/20 09:13 Insulin Glargine (Lantus Syringe) 90 unit HS SQ 06/18/20 21:00 06/18/20 21:22 Metoprolol Succinate (Toprol Xl) 100 mg DAILY PO 06/18/20 13:00 06/19/20 09:13 Piperacillin Sod/ Tazobactam Sod 3.375 gm/Sodium Chloride 50 ml @ 100 mls/hr Q6HRS IV 06/18/20 13:00 06/19/20 02:19 DC 06/18/20 14:25 Enoxaparin Sodium (Lovenox 40mg Syringe) 40 mg Q24H SQ 06/18/20 13:00 06/18/20 13:55 Lactobacillus Rhamnosus (Culturelle) 1 cap BID PO 06/18/20 21:00 06/19/20 09:13 Justicifation of Admission Dx: Justifications for Admission: Justification of Admission Dx: Yes Comminuty Aquired Pneumonia: Med-High Risk Pt HUNTER QUINTANA III DO Jun 19, 2020 10:09
--- NOTE | 2020-06-19 10:17 | PDOC2 ---
CONSULT Date of Consult Date of Consult DATE: 06/19/20 TIME: 10:17 Reason for Consult Reason for Consult: CKD Source Source: Chart review, Patient History of Present Illness Reason for Visit: Pt is a 59 yo AAM who was admitted with having some cough, shortness of breath and fever. He was found to have 100.8 fever, normal white count. Chest x-ray reported lingular opacity and COVID test was done Currently he denies any shortness of breath, no hypoxia, no fever. Denies nausea, vomiting, diarrhea. He denies any urinary complaints. Denies use of NSAID's. Has never seen Renal as OP Past Medical History Cardiovascular: HTN, Hyperlipidemia Pulmonary: No pertinent hx CENTRAL NERVOUS SYSTEM: Other GI: No pertinent hx Heme/Onc: No pertinent hx Hepatobiliary: No pertinent hx Psych: No pertinent hx Musculoskeletal: Osteoarthritis Rheumatologic: No pertinent hx Infectious disease: No pertinent hx Renal/: No pertinent hx Endocrine: Diabetes Past Surgical History Past Surgical History: Other Family History Family History: Hypertension Social History ALCOHOL: none Drugs: None Lives: with Family Current Problem List Problem List Problems Medical Problems: (1) Cough Status: Acute (2) Fever Status: Acute (3) Person under investigation for COVID-19 Status: Acute (4) Shortness of breath Status: Acute Current Medications Current Medications Current Medications Ondansetron HCl (Zofran) 4 mg PRN Q8HRS PRN IV NAUSEA/VOMITING 1ST CHOICE; Start 06/17/20 at 22:45; Stop 06/18/20 at 22:44; Status DC Morphine Sulfate (Morphine Sulfate) 2 mg PRN Q2HR PRN IV SEVERE PAIN 7-10; Start 06/17/20 at 22:45; Stop 06/18/20 at 22:44; Status DC Acetaminophen (Tylenol) 650 mg PRN Q4HRS PRN PO FEVER > 100.3'F Last administered on 06/18/20at 13:26; Start 06/17/20 at 22:45; Stop 06/18/20 at 22:44; Status DC Albuterol/ Ipratropium (Duoneb) 3 ml RTQID NEB ; Start 06/18/20 at 08:00; Stop 06/18/20 at 01:06; Status DC Dextrose (Dextrose 50%-Water Syringe) 12.5 gm PRN Q15MIN PRN IV SEE COMMENTS; Start 06/17/20 at 22:45 Albuterol Sulfate (Ventolin Neb Soln) 2.5 mg PRN Q4HRS PRN NEB SHORTNESS OF BREATH; Start 06/18/20 at 01:15 Fluticasone Propionate (Flonase) 2 spray DAILY NS Last administered on 06/19/20at 09:12; Start 06/18/20 at 02:00 Cetirizine HCl (ZyrTEC) 10 mg DAILY PO Last administered on 06/18/20at 13:26; Start 06/18/20 at 02:00 Amlodipine Besylate (Norvasc) 5 mg 1X ONCE PO Last administered on 06/18/20at 03:42; Start 06/18/20 at 04:00; Stop 06/18/20 at 04:01; Status DC Multivitamins (Thera M Plus) 1 tab DAILY PO Last administered on 06/19/20at 09:13; Start 06/18/20 at 13:00 Azithromycin 500 mg/Sodium Chloride 250 ml @ 250 mls/hr Q24H IV Last administered on 06/18/20at 13:00; Start 06/18/20 at 13:00 Piperacillin Sod/ Tazobactam Sod (Zosyn Per Pharmacy) 1 each PRN DAILY PRN MC SEE COMMENTS; Start 06/18/20 at 12:30; Stop 06/19/20 at 03:53; Status DC EZETIMIBE (Zetia) 10 mg DAILY PO Last administered on 06/19/20at 09:13; Start 06/18/20 at 13:00 Insulin Glargine (Lantus Syringe) 90 unit HS SQ Last administered on 06/18/20at 21:22; Start 06/18/20 at 21:00 Metoprolol Succinate (Toprol Xl) 100 mg DAILY PO Last administered on 06/19/20at 09:13; Start 06/18/20 at 13:00 Piperacillin Sod/ Tazobactam Sod 3.375 gm/Sodium Chloride 50 ml @ 100 mls/hr Q6HRS IV Last administered on 06/18/20at 14:25; Start 06/18/20 at 13:00; Stop 06/19/20 at 02:19; Status DC Enoxaparin Sodium (Lovenox 40mg Syringe) 40 mg Q24H SQ Last administered on 06/18/20at 13:55; Start 06/18/20 at 13:00 Lactobacillus Rhamnosus (Culturelle) 1 cap BID PO Last administered on 06/19/20at 09:13; Start 06/18/20 at 21:00 Active Scripts Active Naproxen 500 Mg Tablet 1 Tab PO BID PRN Reported Metoprolol Succinate ( Xl ) (Metoprolol Succinate) 100 Mg Tab.er.24h 100 Mg PO DAILY Metformin Hcl 1,000 Mg Tablet 500 Mg PO QIDACHS Lantus (Insulin Glargine,Hum.rec.anlog) 100 Unit/1 Ml Vial 90 Unit SQ HS Repaglinide 1 Mg Tablet 1 Mg PO TIDAC Zetia (Ezetimibe) 10 Mg Tablet 1 Tab PO DAILY Amlodipine-Benazepril 10-20 Mg (Amlodipine Besylate/Benazepril) 1 Each Capsule 1 Cap PO DAILY Allergies Allergies: Coded Allergies: No Known Drug Allergies (Unverified , 05/11/17) ROS Review of System As per HPI, rest of the ROS is negative Physical Exam Physical Exam GENERAL: Alert, oriented gentleman, not in distress. HEENT: NAD. NECK: Supple, LUNGS: Clear. HEART: S1, S2 regular. ABDOMEN: Benign. EXTREMITIES: No edema, cyanosis. SKIN: Unremarkable. NEUROLOGIC: The patient is neurologically alert, awake and appropriate. No focal neurologic deficit. No kerns, No CVA or SP tenderness Vital Signs Vital Signs Date Time Temp Pulse Resp B/P (MAP) Pulse Ox O2 Delivery O2 Flow Rate FiO2 06/19/20 09:13 74 176/84 06/19/20 08:00 Room Air 06/19/20 07:00 98.1 16 89 98.1 Assessment & Plan CKD stage 2 - baseline Cr 1.1 to 1,3, at presentation 1.4 No labs this am , E-Lytes stable, No use of Nephrotoxins per Hx Supportive care, Monitor BMP, further ramirez if any worsening of renal function If Dcd fu with PCP Fever, which has resolved. Suspected COVID-19, results are pending. Questionable pneumonia, which has improved. Diabetes. Coronary artery disease. Labs Labs Laboratory Tests Test 06/18/20 00:17 06/18/20 03:37 06/18/20 04:15 06/18/20 08:24 Glucose (Fingerstick) 71 mg/dL (70-99) 157 mg/dL (70-99) 79 mg/dL (70-99) White Blood Count 8.6 x10^3/uL (4.0-11.0) Red Blood Count 4.78 x10^6/uL (4.30-5.70) Hemoglobin 13.3 g/dL (13.0-17.5) Hematocrit 40.5 % (39.0-53.0) Mean Corpuscular Volume 85 fL (79-100) Mean Corpuscular Hemoglobin 28 pg (25-35) Mean Corpuscular Hemoglobin Concent 33 g/dL (31-37) Red Cell Distribution Width 16.0 % (11.5-14.5) Platelet Count 147 x10^3/uL (140-400) Neutrophils (%) (Auto) 75 % (31-73) Lymphocytes (%) (Auto) 18 % (24-48) Monocytes (%) (Auto) 6 % (0-9) Eosinophils (%) (Auto) 1 % (0-3) Basophils (%) (Auto) 0 % (0-3) Neutrophils # (Auto) 6.4 x10^3/uL (1.8-7.7) Lymphocytes # (Auto) 1.6 x10^3/uL (1.0-4.8) Monocytes # (Auto) 0.5 x10^3/uL (0.0-1.1) Eosinophils # (Auto) 0.1 x10^3/uL (0.0-0.7) Basophils # (Auto) 0.0 x10^3/uL (0.0-0.2) Sodium Level 135 mmol/L (136-145) Potassium Level 4.4 mmol/L (3.5-5.1) Chloride Level 100 mmol/L (98-107) Carbon Dioxide Level 26 mmol/L (21-32) Anion Gap 9 (6-14) Blood Urea Nitrogen 14 mg/dL (8-26) Creatinine 1.4 mg/dL (0.7-1.3) Estimated GFR (Cockcroft-Gault) 62.3 Glucose Level 170 mg/dL (70-99) Calcium Level 8.3 mg/dL (8.5-10.1) Test 06/18/20 11:39 06/18/20 16:42 06/18/20 20:49 06/19/20 06:29 Glucose (Fingerstick) 169 mg/dL (70-99) 162 mg/dL (70-99) 280 mg/dL (70-99) 65 mg/dL (70-99) Test 06/19/20 07:36 Glucose (Fingerstick) 90 mg/dL (70-99) Laboratory Tests Test 06/18/20 11:39 06/18/20 16:42 06/18/20 20:49 06/19/20 06:29 Glucose (Fingerstick) 169 mg/dL (70-99) 162 mg/dL (70-99) 280 mg/dL (70-99) 65 mg/dL (70-99) Test 06/19/20 07:36 Glucose (Fingerstick) 90 mg/dL (70-99) Review All relevant outside records, renal labs, imaging studies, telemetry/EKG's were reviewed. Images Images Chest x-ray showed improvement in the lingular opacity. OLIVER DREW MD Jun 19, 2020 10:17
--- NOTE | 2020-06-19 10:29 | PDOC ---
Infectious Disease Note Vital Sign Vital Signs Vital Signs Date Time Temp Pulse Resp B/P (MAP) Pulse Ox O2 Delivery O2 Flow Rate FiO2 06/19/20 09:13 74 176/84 06/19/20 08:00 Room Air 06/19/20 07:00 98.1 16 89 98.1 Labs Lab Laboratory Tests Test 06/18/20 11:39 06/18/20 16:42 06/18/20 20:49 06/19/20 06:29 Glucose (Fingerstick) 169 mg/dL (70-99) 162 mg/dL (70-99) 280 mg/dL (70-99) 65 mg/dL (70-99) Test 06/19/20 07:36 Glucose (Fingerstick) 90 mg/dL (70-99) Objective Assessment pt seen, consult dictated Plan Plan of Care / JORGE RICHARD MD Jun 19, 2020 10:29
--- NOTE | 2020-06-19 10:30 | NUR ---
Pt's current BP 214/104, HR 70. Dr. Sofia notified of this finding. Telephone orders received to give Norvasc 10 mg PO, check in one hour, and get systolic < 160. Will follow up and notify MD of any changes.
[2020-06-19] MEDS ORDERED: amLODIPine BESYLATE 10 MG TABLET PO ONE (11:00)
[2020-06-19 11:06] VITALS: BP 214/104
--- NOTE | 2020-06-19 11:15 | PDOC ---
PULMONARY PROGRESS NOTES Subjective no soa on RA Vitals Vital Signs Date Time Temp Pulse Resp B/P (MAP) Pulse Ox O2 Delivery O2 Flow Rate FiO2 06/19/20 11:06 97.5 70 17 214/104 (140) 90 Room Air 97.5 General: Alert, No acute distress Lungs: Clear Cardiovascular: S1, S2 Abdomen: Soft, Other Neuro Exam: Alert Extremities: No Edema Labs Laboratory Tests Test 06/18/20 00:17 06/18/20 03:37 06/18/20 04:15 06/18/20 08:24 Glucose (Fingerstick) 71 mg/dL (70-99) 157 mg/dL (70-99) 79 mg/dL (70-99) White Blood Count 8.6 x10^3/uL (4.0-11.0) Red Blood Count 4.78 x10^6/uL (4.30-5.70) Hemoglobin 13.3 g/dL (13.0-17.5) Hematocrit 40.5 % (39.0-53.0) Mean Corpuscular Volume 85 fL (79-100) Mean Corpuscular Hemoglobin 28 pg (25-35) Mean Corpuscular Hemoglobin Concent 33 g/dL (31-37) Red Cell Distribution Width 16.0 % (11.5-14.5) Platelet Count 147 x10^3/uL (140-400) Neutrophils (%) (Auto) 75 % (31-73) Lymphocytes (%) (Auto) 18 % (24-48) Monocytes (%) (Auto) 6 % (0-9) Eosinophils (%) (Auto) 1 % (0-3) Basophils (%) (Auto) 0 % (0-3) Neutrophils # (Auto) 6.4 x10^3/uL (1.8-7.7) Lymphocytes # (Auto) 1.6 x10^3/uL (1.0-4.8) Monocytes # (Auto) 0.5 x10^3/uL (0.0-1.1) Eosinophils # (Auto) 0.1 x10^3/uL (0.0-0.7) Basophils # (Auto) 0.0 x10^3/uL (0.0-0.2) Sodium Level 135 mmol/L (136-145) Potassium Level 4.4 mmol/L (3.5-5.1) Chloride Level 100 mmol/L (98-107) Carbon Dioxide Level 26 mmol/L (21-32) Anion Gap 9 (6-14) Blood Urea Nitrogen 14 mg/dL (8-26) Creatinine 1.4 mg/dL (0.7-1.3) Estimated GFR (Cockcroft-Gault) 62.3 Glucose Level 170 mg/dL (70-99) Calcium Level 8.3 mg/dL (8.5-10.1) Test 06/18/20 11:39 06/18/20 16:42 06/18/20 20:49 06/19/20 06:29 Glucose (Fingerstick) 169 mg/dL (70-99) 162 mg/dL (70-99) 280 mg/dL (70-99) 65 mg/dL (70-99) Test 06/19/20 07:36 Glucose (Fingerstick) 90 mg/dL (70-99) Laboratory Tests Test 06/18/20 11:39 06/18/20 16:42 06/18/20 20:49 06/19/20 06:29 Glucose (Fingerstick) 169 mg/dL (70-99) 162 mg/dL (70-99) 280 mg/dL (70-99) 65 mg/dL (70-99) Test 06/19/20 07:36 Glucose (Fingerstick) 90 mg/dL (70-99) Medications Active Scripts Medications Dose Route/Sig Max Daily Dose Days Date Category Metoprolol Succinate ( Xl ) (Metoprolol Succinate) 100 Mg Tab.er.24h 100 Mg PO DAILY 06/18/20 Reported Metformin Hcl 1,000 Mg Tablet 500 Mg PO QIDACHS 01/16/20 Reported Lantus (Insulin Glargine,Hum.rec.anlog) 100 Unit/1 Ml Vial 90 Unit SQ HS 01/16/20 Reported Naproxen 500 Mg Tablet 1 Tab PO BID PRN 09/21/18 Rx Repaglinide 1 Mg Tablet 1 Mg PO TIDAC 11/06/17 Reported Zetia (Ezetimibe) 10 Mg Tablet 1 Tab PO DAILY 11/06/17 Reported Amlodipine-Benazepril 10-20 Mg (Amlodipine Besylate/Benazepril) 1 Each Capsule 1 Cap PO DAILY 11/06/17 Reported Impression . 1. Shortness of breath, cough, headache, and fever. Differential diagnoses is COVID-19 versus other viral infection versus others. on RA, no soa today 2. Obesity, rule out obstructive sleep apnea-hypopnea syndrome. 3. Diabetes mellitus. 4. Hypertension. Plan . 1. on RA 2. Follow up COVID-19 testing. 3. Isolation for COVID-19 4. DVT prophylaxis. 5. Continue antibiotic. 6. The findings and recommendations were discussed with the patient and RN. ok with [facility] PRIMITIVO VAIL MD Jun 19, 2020 11:15
--- NOTE | 2020-06-19 12:07 | CONS ---
DATE OF CONSULTATION: 06/19/2020 REQUESTING PHYSICIAN: Dr. Sofia. REASON FOR CONSULTATION: Pneumonia, fever. HISTORY OF PRESENT ILLNESS: This is a 59-year-old -[place] gentleman who was admitted with having some cough, shortness of breath and fever. The patient was found to have 100.8 fever, normal white count. The patient had a chest x-ray, had shown lingular opacity and COVID test was done, although its results are not back yet. The patient has been put on azithromycin and Zosyn that received. The patient is feeling back to normal. The patient has no shortness of breath, no hypoxia, no fever, nausea, vomiting, diarrhea. The patient says he is ready to go home. PAST MEDICAL HISTORY: Positive for coronary artery disease, diabetes mellitus, hyperlipidemia, hypertension. SOCIAL HISTORY: Negative for smoking, alcohol or illicit drug use. ALLERGIES: No known drug allergies. CURRENT MEDICATIONS: Reviewed. REVIEW OF SYSTEMS: As per HPI, all other systems reviewed and are negative. PHYSICAL EXAMINATION: GENERAL: Alert, oriented gentleman, not in distress. VITAL SIGNS: Stable, afebrile. HEENT: NAD. NECK: Supple, no JVP, no lymphadenopathy. LUNGS: Clear. HEART: S1, S2 regular. ABDOMEN: Benign. EXTREMITIES: No edema, cyanosis. SKIN: Unremarkable. NEUROLOGIC: The patient is neurologically alert, awake and appropriate. No focal neurologic deficit. LABORATORY DATA: White count is normal. BUN and creatinine is normal. Chest x-ray showed improvement in the lingular opacity. IMPRESSION: 1. Fever, which has resolved. 2. Suspected COVID-19, results are pending. 3. Questionable pneumonia, which has improved. 4. Diabetes. 5. Coronary artery disease. RECOMMEND: The patient can be discharged on p.o. azithromycin to finish 3 days, supportive care and the patient can call later on for results for the COVID. Thank you very much, Dr. Sofia, for giving me the opportunity to participate in this patient's care. JORGE RICHARD MD DR: KARMA/marilou JOB#: [id number] / [id number]
[2020-06-19] MEDS: AZITHROMYCIN 500 MG in IV NORMAL SALINE 250ML 250 ML IV SCH (12:26)
--- NOTE | 2020-06-19 12:32 | NUR ---
Pt's BP 197/[address] Sofia notified by telephone. Orders received for Clonidine 0.3 mg PO. Order also verified with Noah in pharmacy, as pt also takes a beta al. Will administer and recheck BP.
[2020-06-19] MEDS: ENOXAPARIN 40 MG/0.4 ML SYRINGE. SQ SCH (12:39)
[2020-06-19] MEDS ORDERED: cloNIDine HCL 0.3 MG TABLET PO ONE (12:45)
--- NOTE | 2020-06-19 14:33 | NUR ---
This RN notified Dr. Sofia of pt's most recent BP of 184/86, HR 70. Orders received to give Lisinopril 20 mg PO and recheck BP. Will administer and recheck pt.
[2020-06-19 14:44] VITALS: BP 184/86
[2020-06-19] MEDS ORDERED: LISINOPRIL 20 MG TABLET PO ONE (14:45)
--- NOTE | 2020-06-19 16:00 | NUR ---
This RN notified Dr. Sofia of pt's current BP at 167/89, HR 70. Dr. Sofia stated pt is okay to discharge. Orders already placed in computer. Will discharge pt.
--- NOTE | 2020-06-19 16:29 | NUR ---
SW following. Spoke with RN and reviewed chart. Pt to discharge home today on room air and oral medications. No SW needs per RN.
--- NOTE | 2020-06-19 18:34 | NUR ---
Pt left unit at approx 1820 by wheelchair via private vehicle. VSS. Discharge paperwork discussed at length with pt, including COVID instructions. Pt verbalized understanding. No further questions asked.
--- NOTE | 2020-06-20 08:26 | DS ---
DATE OF DISCHARGE: 06/19/2020 ADMISSION DIAGNOSES: Fevers and possible COVID-19. DISCHARGE DIAGNOSIS: Resolving fevers. HOSPITAL COURSE: The patient is a pleasant 59-year-old male, who presented with fevers, possible COVID-19. We gave the patient Tylenol and antibiotics, tested him for COVID-19. He also had some blood pressure issues yesterday; we had to give him 3 different blood pressure meds to get his pressure down to 160. I saw and examined him, he was doing well. I spoke with case management and the nurses and the patient. He wants to go home. We plan to discharge with close outpatient followup. DISPOSITION: Home. ACTIVITY: As tolerated. DIET: Low sodium. MEDICATIONS: Please see MRAD. TOTAL TIME: 31 minutes. HUNTER QUINTANA DO DR: [place]/marilou JOB#: [id number] / [id number]
== END 2020-06-19 18:38 | disposition home or self-care (01) | DRG 178 ==
LOC: ER 21:59 → 6 SOUTH 23:20
PROVIDERS: ADMIT Internal Medicine; ATTEND Internal Medicine
DX: U07.1 COVID-19 (principal); E87.1 Hypo-osmolality and hyponatremia; E11.22 Type 2 diabetes mellitus with diabetic chronic kidney disease; E66.9 Obesity, unspecified; E78.00 Pure hypercholesterolemia, unspecified; E78.5 Hyperlipidemia, unspecified; I12.9 Hypertensive chronic kidney disease with stage 1 through stage 4 chronic kidney disease, or unspecified chronic kidney disease; I25.10 Atherosclerotic heart disease of native coronary artery without angina pectoris; M19.90 Unspecified osteoarthritis, unspecified site; N18.9 Chronic kidney disease, unspecified; Z78.9 Other specified health status; Z82.49 Family history of ischemic heart disease and other diseases of the circulatory system; Z83.3 Family history of diabetes mellitus; Z85.6 Personal history of leukemia; Z90.49 Acquired absence of other specified parts of digestive tract; Z68.30 Body mass index [BMI] 30.0-30.9, adult; Z79.899 Other long term (current) drug therapy
CPT/HCPCS: 36415; 71045; 80048; 82962; 85025; 99285; J0456; J1650; J1815; J2543; J7050; G0378; J7030